=== PATIENT | female | born 1960 | race Caucasian/White ===

== ENCOUNTER 2016-11-14 21:22 | Inpatient (IN) | payer OTHER ==
--- NOTE | ~2016-11-14 | EKG ---
PATIENT: SONIA CHRISTIANSON UNIT #: [id number] Ventricular Rate: 91 BPM Atrial Rate: 91 BPM P-R Interval: 162 ms QRS Duration: 104 ms Q-T Interval: 360 ms QTC Calculation(Bezet): 442 ms P Iny[place]ern: 76 degrees Calculated R Iny[place]ern: -25 degrees Calculated T In[place]ern: 49 degrees Diagnosis Line: Normal sinus rhythm Diagnosis Line: Low voltage QRS Diagnosis Line: Borderline ECG Diagnosis Line: When compared with ECG of 18-OCT-2016 18:02, Diagnosis Line: No significant change was found Diagnosis Line: Confirmed by KVNG RIVERA MD ([id number]) on 11/15/2016 Diagnosis Line: 7:30:54 PM INTERPRETING MD: MIGUEL BECKMAN
--- NOTE | ~2016-11-14 | CO ---
Unit #: [id number] #: [id number] Patient: SONIA CHRISTIANSON [id number] [address] [place], [place] [address] [id number] I MR#: [id number] NAME: SONIA CHRISTIANSON ROOM: 568 Age: 56 Sex: F Admission Date: 11/14/2016 : 1960 Attending Physician: Rodriguez Cordova M.D. Primary Care Physician: Mil Dial M.D. Consultation Date: 11/15/2016 CONSULTATION REPORT REASON FOR CONSULTATION Acute renal failure. HISTORY OF PRESENT ILLNESS This is a 56-year-old white female, who was admitted status post fall. Upon arrival to the ER, she was noted to be hypotensive and have acute renal failure with a creatinine of 6.3. It is of note that she has history of episodes of acute renal failure in the past, however, her creatinine trends to return to baseline, which is approximately 0.6. It is of note that she fell 2 to 3 days prior. At that time, she did not seek medical care. After arrival to the ER, she was found to have an oblique fracture to the distal fibula with a 4 mm separation. She subsequently was admitted to the ICU. She was found to be severely acidotic with pH of 7.1. She was hydrated with IV fluids in the ER and subsequently after arrival to the ICU, she was switched to bicarb drip for metabolic acidosis. She was having good urine output. Her creatinine is now 4.8. Her blood pressure is still low. She is still on Levophed. She is a little more arousable, but still very inappropriate and difficult to get history from. She is currently on the BiPAP. Of note at home, she was on SPEEDY inhibitors. She denies any NSAID use, but the reliability of her history is questionable. It is of note that she does have multiple psychiatric and pain medications and has a long history of polypharmacy. PAST MEDICAL HISTORY 1. Hypertension. 2. Several episodes of acute kidney injury. 3. COPD. 4. Congestive heart failure. 5. Diabetes. 6. Anemia of chronic disease. HOME MEDICATIONS As follows. Lipitor, Ventolin, Symbicort, lisinopril, Neurontin, Wellbutrin, sodium bicarb, Lomotil, Tamiflu, hydralazine. ALLERGIES She is allergic to penicillin, sulfa, and codeine. SOCIAL HISTORY History is obtained from the chart. She does have active smoking. She states that she drinks daily, but does not given any details to that. FAMILY HISTORY Significant for coronary artery disease in the chart, but again she is Unit #: [id number] #: [id number] Patient: SONIA CHRISTIANSON unable to provide this. REVIEW OF SYSTEMS We have attempted 12 systems review of systems, however, she is unable to cooperate. She answers yes to every single question I have. Per the nursing staff, she has had no seizure-like activity. No rashes have been noted. No edema has been noted. No vomiting, diarrhea, melena, or bright red blood per rectum has been noted. PHYSICAL EXAMINATION VITAL SIGNS: Blood pressure 95/55, she is on Levophed; heart rate is 78; respiratory rate 16; she is afebrile. GENERAL: She is alert, she is sleeping, she is arousable, but inappropriate. She is in no acute distress. HEENT: Extraocular movements are intact. There is no scleral icterus. Pupils are equal, round, and reactive to light. NECK: Supple with no masses. No JVD. HEART: S1, S2. No murmurs, rubs, or gallops appreciated. LUNGS: Coarse with diminished bases, but no rales, rhonchi, or wheezes are appreciated. ABDOMEN: Soft, nontender, nondistended. Slightly hypoactive bowel sounds. No rebound. No guarding. EXTREMITIES: Warm to touch with intact pulses. No edema. SKIN: No rashes noted. DIAGNOSTIC STUDIES LABORATORY RESULTS: Reviewed. Sodium 135, potassium 4.3, bicarb 21, BUN 73, creatinine 4.8, calcium 7.9, albumin 3.3. White count 5, hemoglobin 10, platelets 119. ABG shows pH of 7.14, paCO2 of 54, paO2 of 196. IMAGING STUDIES: Chest x-ray shows central line that terminates into SVC and some mild atelectasis in the left lung base with unremarkable cardiac silhouette. Ankle films did show the fibular fracture. ASSESSMENT 1. Acute renal failure. 2. Metabolic acidosis. 3. Hypotension. 4. Polysubstance abuse. 5. Anemia of chronic disease. DISCUSSION AND PLAN At this time, we will continue on her bicarb drip. We will repeat her ABG. We will go ahead and add banana bag and check magnesium and phosphorus due to her polysubstance abuse. For her renal failure, we will check urine studies and renal ultrasound. For hypotension we will continue on pressors. Check TSH and cortisol. We will discontinue her SPEEDY inhibitor. Recommend we avoid NSAIDs or nephrotoxic agents including IV iodinated dye. If her acidosis worsens, we will consider hemodialysis. We will continue to monitor electrolytes and volume closely for her anemia. We will check her iron sats in the a.m. We will also go ahead and check a lactic acid level. Thank you again for this referral. Please feel free to call with any questions or concerns. Dictated by... Unit #: [id number] #: [id number] Patient: SONIA CHRISTIANSON M.D. SHD/modl TD: 11/15/2016 22:45 JOB #: [id number] CONSULTATION REPORT X Imani Arauz MD CONSULTATION REPORT
--- NOTE | ~2016-11-14 | CR72 ---
[facility] A Service of [facility] & [facility] RADIOLOGY TEXT RESULTS PATIENT: SONIA CHRISTIANSON LOCATION: [address] : [birth year] UNIT #: [id number] AGE: [address]: Rodriguez Cordova MD SEX: F ORDER DR: [id number] [facility] [address] [facility]. [place], [place] [address] [id number] I MR#: [id number] Acc #: [id number] NAME: SONIA CHRISTIANSON : 1960 SEX: F STUDY DATE/TIME: 11/15/2016 9:43 UNIT: [facility] ROOM: [facility] STUDY DESCRIPTION: CR Chest Single View Portable Attending Physician: Rodriguez Cordova M.D. Ordering Physician: Zak Flores M.D. Primary Care Physician: Mil Dial M.D. MEDICAL IMAGING REPORT This report is preliminary unless electronic signature is present EXAM Frontal chest 11/15/2016 INDICATIONS 56-year-old female for line placement, short of air, respiratory distress, acute renal failure and lower extremity fracture. Symptoms began immediately prior to arrival. Frontal chest compared with 11/14/2016 FINDINGS Dual lead left-sided pacemaker/defibrillator is unchanged. There is a new central line from right neck approach terminating at the distal SVC level. There is no pneumothorax. Cardiac silhouette unremarkable. Vascularity normal. There is some minimal atelectasis in the left lung base. IMPRESSION 1. New central line from right neck approach terminates at the distal SVC level. No pneumothorax. 2. There is some minimal atelectasis in the left lung base. Dictated by... Hernesto Sanders M.D. THIS IS AN ELECTRONICALLY VERIFIED REPORT Hernesto Sanders M.D. at 11/15/2016 5:33 PM Mirna TD: 11/15/2016 15:48 JOB #: [id number] MEDICAL IMAGING REPORT COPY
--- NOTE | ~2016-11-14 | CO ---
Unit #: [id number] #: [id number] Patient: SONIA CHRISTIANSON [id number] [address] [place], [place] [address] [id number] I MR#: [id number] NAME: SONIA CHRISTIANSON ROOM: 564 Age: 56 Sex: F Admission Date: 11/14/2016 : 1960 Attending Physician: Rodriguez Cordova M.D. Primary Care Physician: Mil Dial M.D. Consultation Date: 11/18/2016 CONSULTATION REPORT REASON FOR CONSULTATION Confusion. HISTORY OF PRESENT ILLNESS Ms. Busch is a 56-year-old female seen on November 18, 2016 in room 568, bed 1 at [facility]. The patient was confused, unable to give any reliable information. Patient's right leg was wrapped, unable to give any information. The patient answered some yes and no questions. The patient seemed very confused, anxious, nervous and unable to give any reliable information. PAST PSYCHIATRIC HISTORY Unknown for any history of any psychiatric illness. MEDICAL HISTORY 1. History of hypertension. 2. Acute kidney injury. 3. History of acute exacerbation of COPD. 4. Diabetes. 5. Anemia. 6. Patient currently has acute renal failure, metabolic acidosis, hypotension. 7. History of polysubstance abuse. 8. Anemia on chronic disease. MEDICATION HISTORY The patient is currently on: 1. Zestril. 2. Hydralazine. 3. Aspirin. 4. Coreg. 5. Ativan p.r.n. 6. Prednisone 30 mg daily. 7. NovoLog. 8. Lipitor. 9. Claritin. 10. Symbicort. 11. Lovenox. 12. Combivent inhaler. 13. Patient was on Seroquel earlier, on previous admission. FAMILY HISTORY Unavailable at this time. Unit #: [id number] #: [id number] Patient: SONIA CHRISTIANSON SOCIAL HISTORY No known history of any abuse, but history of substance abuse according to intake reports. Patient's urine drug screen was positive for opiates. REVIEW OF SYSTEMS A complete review of systems is remarkable for confusion. MENTAL STATUS EXAMINATION General appearance: Patient dressed in hospital attire. Patient seems somewhat confused, unable to give any reliable information. Attention span and concentration poor. Speech slow. Orientation: Unable to assess. Mood and affect were labile. Thought process was tangential. Thought content: Guarded, paranoid. Recent and remote memory poor. Language: Patient articular. Fund of knowledge: Impaired. Insight and judgment: Impaired. DIAGNOSES 1. Delirium, F05. 2. History of opiate use disorder, moderate, F11.20. ASSESSMENT AND PLAN 1. Supportive psychotherapy, psychoeducation provided to patient but patient unable to comprehend much. 2. Recommending at this time to continue with the inpatient treatment with plan to add haloperidol 2 mg three times a day. Advised to hold medication if patient too sleepy. We will closely monitor patient. We will closely monitor patient's mood and behavior. If needed, consider further adjustment in medications. Please feel free to call if any question, . Dictated by... Sal Santos/sandra TD: 11/19/2016 10:00 JOB #: [id number] CONSULTATION REPORT X Aldo Carreno MD X CONSULTATION REPORT
--- NOTE | ~2016-11-14 | CR126 ---
[facility] A Service of [facility] & [facility] RADIOLOGY TEXT RESULTS PATIENT: SONIA CHRISTIANSON LOCATION: [facility]2-03 : [birth year] UNIT #: [id number] AGE: [address]: Rodriguez Cordova MD SEX: F ORDER DR: [id number] [facility] [address] [facility]. [place], [place] [address] [id number] I MR#: [id number] Acc #: [id number] NAME: SONIA CHRISTIANSON : 1960 SEX: F STUDY DATE/TIME: 11/14/2016 21:02 UNIT: [facility] ROOM: [id number] STUDY DESCRIPTION: CR Foot Complete Min 3 View Lt Attending Physician: Rodriguez Cordova M.D. Ordering Physician: Zak Flores M.D. Primary Care Physician: Mil Dial M.D. MEDICAL IMAGING REPORT This report is preliminary unless electronic signature is present EXAM Left foot 3 views 11/14/2016 HISTORY Foot pain and swelling for 2 days after fall. FINDINGS 3 views of the left foot demonstrate oblique fracture through the medial base of the second metatarsal with 2 mm separation of the fracture fragment. Moderate soft tissue swelling over the dorsum of the forefoot. There is an oblique fracture of the distal fibular metaphysis with 4 mm separation of the fracture fragment. Soft tissue swelling about the ankle. No dislocation. No additional fracture. Degenerative changes in the ankle. Dictated by... Rell Ward M.D. THIS IS AN ELECTRONICALLY VERIFIED REPORT Rell Ward M.D. at 11/15/2016 2:20 PM TREY/clive TD: 11/15/2016 11:00 JOB #: [id number] MEDICAL IMAGING REPORT COPY
--- NOTE | ~2016-11-14 | CO ---
Unit #: [id number] #: [id number] Patient: SONIA SWAIN [id number] [address] [address] [id number] I MR#: [id number] NAME: SONIA SWAIN ROOM: 568 Age: 56 Sex: F Admission Date: 11/14/2016 : 1960 Attending Physician: Rodriguez Cordova M.D. Primary Care Physician: Mil Dial M.D. Consultation Date: 11/15/2016 CONSULTATION REPORT REASON FOR CONSULT Left foot and ankle fracture. HISTORY OF PRESENT ILLNESS Ms. Swain is a 56-year-old female who presents today with a left foot and ankle fracture. The patient does not recall an injury or a fall. She does not remember any details. She reports pain for 2 days. She is being admitted for diarrhea, blurred vision, vomiting, coughing and is being admitted to the ICU. She admits to pain over the lateral malleolus and distal fibula. She also admits pain to the second metatarsal. She is able to bear weight but does have pain. She walks without any ambulatory support. PAST MEDICAL HISTORY 1. Diabetes. 2. COPD. 3. Hypertension. 4. Hyperlipidemia. 5. GERD. 6. Gastroparesis. 7. Congestive heart failure. 8. Ventricular tachycardia. 9. Smoking. MEDICATIONS Medications include Hydrochlorothiazide, Catapres, potassium, Neurontin, Wellbutrin, Klonopin, Seroquel, allergy medicine, omeprazole, Celexa, Coreg, Lipitor, Ventolin inhaler, Symbicort and lisinopril. ALLERGIES Penicillin, sulfa and codeine. PAST SURGICAL HISTORY 1. Tubal ligation. 2. Cholecystectomy. 3. Cardiac catheterization. SOCIAL HISTORY The patient smokes a pack of cigarettes a day. She denies any alcohol use and no illicit drug use reported. FAMILY HISTORY Family history is insignificant. Unit #: [id number] #: [id number] Patient: SONIA SWAIN REVIEW OF SYSTEMS Ten organ systems reviewed. The patient denies any blurry vision, congestion, sore throat, shortness of breath, chest pain, abdominal pain, urinary incontinence, numbness, tingling, skin ulcers or lesions, anxiety, depression. Positive for joint pain. PHYSICAL EXAMINATION GENERAL: In no acute distress. Alert and oriented x3. VITALS: Temp 98.3, pulse 97, respirations 16, blood pressure 124/77. HEENT: PERRLA. Nonicteric sclera. THORAX: Trachea is midline. No thyromegaly. CARDIOVASCULAR: S1, S2. No extra sounds. No murmurs. RESPIRATORY: Lungs are clear to auscultation. No rales or rhonchi. ABDOMEN: Nondistended, nontender. Positive bowel sounds. : Deferred. MUSCULOSKELETAL: Tenderness to palpation over the left distal fibula and second metatarsal. Positive edema. NEUROLOGIC: Cranial nerves II-XII intact. SKIN: Cool and dry. PSYCHIATRIC: Good insight. Good judgment. Mood and affect are pleasant. DIAGNOSTIC STUDIES X-RAYS ON ADMISSION: Two views of the left foot and ankle were ordered and reviewed and show a minimally displaced left distal fibula fracture and a second metatarsal fracture proximally. ASSESSMENT Left foot and ankle fracture. PLAN I have discussed treatment options with the patient, as well as reviewing the x-rays with Dr. Calderón and Dr. Tillman. We have recommended nonsurgical intervention at this time. We will treat the patient nonweightbearing in a posterior splint. We will see the patient in the office in a week following her discharge for another x-ray. It should take the fracture about 6-8 weeks to completely heal. Thank you for the consult. Dictated by... Pee Monet for Sal To/fidelina TD: 11/18/2016 08:25 JOB #: [id number] CONSULTATION REPORT X Bonita Ivory CONSULTATION REPORT
--- NOTE | ~2016-11-14 | DS ---
Unit #: [id number] #: [id number] Patient: SONIA CHRISTIANSON [id number] [address] [place], [place] [address] [id number] I MR#: [id number] NAME: SONIA CHRISTIANSON ROOM: 564 Age: 56 Sex: F Admission Date: 11/14/2016 : 1960 Discharge Date: 11/20/2016 Attending Physician: Rodriguez Cordova M.D. Primary Care Physician: Mil Dial M.D. DISCHARGE SUMMARY FINAL DIAGNOSES 1. Left foot and ankle fracture: Patient was admitted after she had a fall at home and found to have left foot and ankle fracture. The patient was seen by Dr. Tillman. Nonsurgical intervention has been recommended at this time. Patient was treated with non-weight bearing in a posterior splint. The patient needs to follow up with Dr. Tillman in one week. After that one week, x-ray needs to be done. It should take fracture about 6-8 weeks to completely heal. 2. Acute renal failure and metabolic acidosis: Patient was seen by Dr. Arauz from renal services, started on bicarb drip, IV fluids. Patient also has a history of polysubstance abuse so banana bag and magnesium replacement and potassium replacement was done. Patient's renal function has much improved. On discharge, BUN is 24 which was 81 on admission, creatinine is 1.0 which was 6.3 on admission. Patient needs to stay away from all the NSAIDs [id number], and BMP needs to be done in a week or so. Patient did have potassium level low today. That will be replaced before discharge and that needs to be checked as an outpatient too. 3. Hypotension: On admission, patient was hypotensive, was admitted to ICU and was on pressors for some time. Most likely, it was secondary to multiple sites and blood pressure medications which have been adjusted. There is a question of drug overdose on admission. The patient's home medications were adjusted. Patient is stable from that point of view at this time but needs to continue to observe closely. 4. Patient has significant cardiac disease: She has non-ischemic cardiomyopathy with left ventricular ejection fraction of 30% to 35%. Patient has had AICD placement in July 2015. Does not have significant valvular heart disease. Cardiac cath was done in July 2015 which showed normal coronaries. 5. Acute respiratory failure: Patient did have acute respiratory failure on admission. Was admitted to ICU, most likely secondary to drug overdose which is resolved at this time. 6. Acute exacerbation of chronic obstructive pulmonary disease: That could be causing some of the hypoxic respiratory failure also. Patient was treated with IV Solu-Medrol and antibiotics. Patient needs only two more days of prednisone which will be 5 mg dose. 7. Diarrhea: Patient did have diarrhea episode. C. diff was done which was negative. 8. Delirium/confusion/history of opioid use disorder: Patient was seen by Dr. Aldo Carreno, psychiatrist. Supportive psychotherapy, psychoeducation was provided to patient but patient was unable to comprehend. She is doing much better at this time. Patient did receive Haldol 2 mg three times a day. Patient will need to continue Unit #: [id number] #: [id number] Patient: SONIA CHRISTIANSON to monitor mood and behavior. Patient will need outpatient ongoing psych consult. 9. Chronic anemia, which is stable. 10. Hyperlipidemia: Continue same medications. DISCHARGE MEDICATIONS 1. Prednisone 5 mg p.o. daily for two days. 2. Hydrocodone 10/325, one tablet q.8 p.r.n. 3. Continue Ventolin inhaler at home. 4. Symbicort 160/4.5 inhaler, two inhaler b.i.d. 5. Tylenol 650 q.4 p.r.n. 6. Celexa 20 mg daily. 7. Cetirizine daily. 8. Seroquel 100 mg q. h.s. 9. Klonopin 0.5 mg b.i.d. 10. Coreg 3.125 mg twice a day. Please note - dose of Coreg has been decreased because of hypertension on admission which may need to be adjusted later on. 11. Lipitor 20 mg daily. 12. Lisinopril 10 mg twice a day. 13. Pepcid 20 mg daily. 14. Aspirin 81 mg daily. CONSULTATIONS DURING HOSPITALIZATION 1. Dr. Arauz - Renal Services. 2. Dr. Thompson/Dr. Sandoval - Pulmonary Services. 3. Dr. Tillman - Orthopedic Surgery. 4. Dr. Aldo Carreno - Psych Services. 5. Dr. Vick - Cardiology Services. LAB WORKUP ON DISCHARGE C. diff is negative. Sodium 138, potassium 3.6, chloride 97, BUN 14, creatinine 0.8, magnesium 1.5, WBC 8.2, hemoglobin 10.5, hematocrit 31.1 and platelet count of 209. Please note - I will discharge her on 50,000 units of vitamin D q. weekly. Blood cultures during hospitalization were negative. TSH 2.46. Troponin less than 0.03. Ferritin 88. Lactic acid 1.0. Procalcitonin level 0.18 on admission. Urine drug screen was positive for TCA and benzo. EXAMINATION ON DISCHARGE Blood pressure 145/71, respiratory rate 18, pulse is 102, temperature 98.0. CHEST has fair air entry. No additional sounds. CVS is regular rhythm. EXTREMITIES - left extremity splint is present. DISCHARGE INSTRUCTIONS 1. The patient is being discharged home in stable condition. 2. [facility] health to evaluate and treat at home. 3. Non-weight bearing until seen by Dr. Tillman. 4. Follow up with Dr. Tillman in one week. 5. Medication as per Med Rec. 6. Potassium 40 mEq q. one dose before discharge. 7. BMP to be done in one week. Unit #: [id number] #: [id number] Patient: SONIA CHRISTIANSON 8. Prescription has been written. Dictated by... Tracy Quiroz M.D. MARY/kalie TD: 11/22/2016 08:33 JOB #: [id number] DISCHARGE SUMMARY X Tracy Quiroz MD X DISCHARGE SUMMARY
--- NOTE | ~2016-11-14 | US77 ---
[facility] A Service of [facility] RADIOLOGY TEXT RESULTS PATIENT: SONIA CHRISTIANSON LOCATION: [address] : [birth year] UNIT #: [id number] AGE: [address]: Rodriguez Cordova MD SEX: F ORDER DR: [id number] [place] [id number] [facility]. [place], [place] [address] [id number] I MR#: [id number] #: [id number] NAME: SONIA CHRISTIANSON : 1960 SEX: F STUDY DATE/TIME: 11/16/2016 7:28 UNIT: [facility] ROOM: [facility] STUDY DESCRIPTION: US Kidney Bilateral Complete Attending Physician: Rodriguez Cordova M.D. Ordering Physician: Bhumi Sandoval M.D. Primary Care Physician: Mil Dial M.D. MEDICAL IMAGING REPORT This report is preliminary unless electronic signature is present EXAM Renal ultrasound bilateral complete, 11/16/2016 INDICATION 56-year-old female with acute renal injury. BUN 38, creatinine 1.4, GFR 42. TECHNIQUE Sonographic imaging of the kidneys was performed bilaterally. COMPARISON No comparisons. FINDINGS The right kidney measures 9.8 x 5.0 x 4.3 cm and the left measures 11.2 x 4.6 x 4.4 cm. There is no hydronephrosis or shadowing stone on either side. No perinephric fluid collection identified. Bladder decompressed by a Jasso catheter. IMPRESSION Negative bilateral renal ultrasound. Bladder decompressed by a Jasso catheter and not visualized or assessed. Dictated by... Hernesto Sanders M.D. THIS IS AN ELECTRONICALLY VERIFIED REPORT Hernesto Sanders M.D. at 11/16/2016 4:38 PM Aníbal TD: 11/16/2016 12:19 JOB #: [id number] [facility] A Service of [facility] RADIOLOGY TEXT RESULTS PATIENT: SONIA CHRISTIANSON [address] [address] [id number] : [birth year] UNIT #: [id number] AGE: [address]: Rodriguez Cordova MD SEX: F ORDER DR: MEDICAL IMAGING REPORT COPY
--- NOTE | ~2016-11-14 | CR20 ---
[facility] A Service of [facility] & [facility] RADIOLOGY TEXT RESULTS PATIENT: SONIA CHRISTIANSON LOCATION: [address] : [birth year] UNIT #: [id number] AGE: [address]: Rodriguez Cordova MD SEX: F ORDER DR: [id number] [facility] [address] [facility]. [place], [place] [address] [id number] I MR#: [id number] #: [id number] NAME: SONIA CHRISTIANSON : 1960 SEX: F STUDY DATE/TIME: 11/14/2016 21:21 UNIT: [facility] ROOM: [facility] STUDY DESCRIPTION: CR Ankle Min 3 Views Lt Attending Physician: Rodriguez Cordova M.D. Ordering Physician: Zak Flores M.D. Primary Care Physician: Mil Dial M.D. MEDICAL IMAGING REPORT This report is preliminary unless electronic signature is present EXAM Left ankle 3 views 11/14/2016 HISTORY Ankle pain and bruising after fall 2 days ago. FINDINGS 3 views of the left ankle demonstrate oblique fracture through the distal fibular metaphysis with 4 mm separation of the distal fracture fragment. Moderate soft tissue swelling about the ankle both medially and laterally. There is a fracture through the base of the second metatarsal with approximately 2 mm separation of the fracture fragment. No dislocation. Mild degenerative changes in the ankle. Dictated by... Rell Ward M.D. THIS IS AN ELECTRONICALLY VERIFIED REPORT Rell Ward M.D. at 11/15/2016 2:20 PM TREY/clive TD: 11/15/2016 11:06 JOB #: [id number] MEDICAL IMAGING REPORT COPY
--- NOTE | ~2016-11-14 | CR72 ---
[facility] A Service of [facility] & [facility] RADIOLOGY TEXT RESULTS PATIENT: SONIA CHRISTIANSON LOCATION: [address] : [birth year] UNIT #: [id number] AGE: [address]: Rodriguez Cordova MD SEX: F ORDER DR: [id number] [facility] [address] [facility]. [place], [place] [address] [id number] I MR#: [id number] Acc #: [id number] NAME: SONIA CHRISTIANSON : 1960 SEX: F STUDY DATE/TIME: 11/14/2016 20:59 UNIT: [facility] ROOM: [facility] STUDY DESCRIPTION: CR Chest Single View Portable Attending Physician: Rodriguez Cordova M.D. Ordering Physician: Zak Flores M.D. Primary Care Physician: Mil Dial M.D. MEDICAL IMAGING REPORT This report is preliminary unless electronic signature is present EXAM Portable chest x-ray, 11/14/2016. HISTORY Weakness, falls. 2 days duration. Fell. Weakness, dizziness. FINDINGS AP radiograph of the chest is presented. Comparison 10/18/2016 1904 hours. Cardiac pacemaker unchanged. Heart normal in size. The lungs are well-inflated. Linear atelectasis at the left lung base. The lungs are otherwise clear. No pleural effusion or pneumothorax. No suspicious nodule. Dictated by... Naseem Adams M.D. THIS IS AN ELECTRONICALLY VERIFIED REPORT Naseem Adams M.D. at 11/16/2016 5:27 PM PABLITO/sarabjit TD: 11/15/2016 11:34 JOB #: [id number] MEDICAL IMAGING REPORT COPY
--- NOTE | ~2016-11-14 | EKG ---
PATIENT: SONIA CHRISTIANSON UNIT #: [id number] Ventricular Rate: 73 BPM Atrial Rate: 73 BPM P-R Interval: 178 ms QRS Duration: 92 ms Q-T Interval: 398 ms QTC Calculation(Bezet): 438 ms P [place]: 71 degrees Calculated R [place]: 7 degrees Calculated T [place]: 40 degrees Diagnosis Line: Sinus rhythm with marked sinus arrhythmia Diagnosis Line: Low voltage QRS Diagnosis Line: Borderline ECG Diagnosis Line: When compared with ECG of 14-NOV-2016 21:14, Diagnosis Line: No significant change was found Diagnosis Line: Confirmed by KVNG RIVEAR MD ([id number]) on 11/17/2016 Diagnosis Line: 7:15:57 AM INTERPRETING MD: MIGUEL BECKMAN
[~2016-11-14 21:22] MED LIST: ABILIFY2 MG PO; ACID REDUCER20 MG PO; ALBUTEROL MININEB NEB; ALBUTEROL17 GM; ALBUTEROL17 GM INH; ALLERGY RELIEF10 M6 PO; ALPRAZOLAM; APAP325 M1 PO; AZITHROMYCIN250 MG PO; CALCIUM 500 +1 EAC2 PO; CARVEDILOL25 MG PO; CATAPRES0.1 MG PO; CELEXA; CELEXA PO; CELEXA20 M1 PO; CETIRIZINE HCL10 MG PO; CIPRO PO; CITALOPRAM HBR40 MG PO; CLARITIN D PO; COMBIVENT INH14.7 GM; COMBIVENT INH14.7 GM INH; COMBIVENT U/D3 M2 INH; DELTASONE20 MG PO; ESTRACE PO; FLEXERIL PO; GLUCOPHAGE XR500 MG; GLUCOPHAGE500 MG PO; HUMIBID-LA600 MG PO; HYDRALAZINE HCL25 MG PO; HYDROCHLOROTHIA25 MG PO; HYDROCODON-ACE1 EAC7 PO; IBUPROFEN600 MG PO; IBUPROFEN800 MG PO; INHALER; K-DUR20 ME1 PO; KCL; KLONOPIN; KLONOPIN PO; KLONOPIN0.5 M3 PO; KLOR-CON PO; LANTUS SUBQ; LANTUS100 UNITS/ SUBQ; LEVAQUIN; LEVAQUIN PO; LEVEMIR100 UNITS/ INJ; LIPITOR; LIPITOR PO; LIPITOR20 MG PO; LIPITOR40 MG PO; LISINOPRIL; LISINOPRIL-HCTZ1 T14 PO; LISINOPRIL-HCTZ1 T18 PO; LISINOPRIL2.5 MG PO; LISINOPRIL20 MG PO; LOMOTIL WHITE2.5 M1 PO; LOPRESSOR PO; LORATADINE; LORTAB 10/500 T1 TAB PO; LORTAB 7.5-5001 TAB; LORTAB 7.5-5001 TAB PO; MAGNESIUM400 MG PO; MEDROL DOSEPAK4 MG DOB; METHADONE PO; METOPROLOL TART25 MG PO; MIDRIN CAPSULE1 CAP PO; MUCINEX D ER T1 EACH PO; NEURONTIN800 MG PO; NICODERM C1 PATCH .4 TD; NICOTINE T1 PATCH .2; NICOTINE TRANSD21 MG EXT; OMEPRAZOLE20 M1 PO; OMEPRAZOLE20 M2 PO; PERCOCET5/325 PO; PHENERGAN DM1 ML PO; PHENERGAN PO; PREDNISONE; PREDNISONE PO; PREDNISONE10 MG/DOSE PO; PREMPRO PO; PRILOSEC PO; PRINIVIL40 MG PO; PROVENTIL17 GM INH; SENOKOT S1 TA1 PO; SEROQUEL PO; SEROQUEL50 M1 PO; SKELAXIN PO; SOD BICARBONATE PO; SODIUM BICARBO650 MG PO; SPIRIVA18 MCG INH; SYMBICORT 16010.2 GM INH; SYMBICORT INH; SYMBICORT80 INH; TAMIFLU75 M1 PO; TESSALON200 MG PO; TOPIRAMATE100 MG PO; TOPROL XL PO; VIBRAMYCIN100 M1 PO; VICODIN 5/1 TAB 5/50 PO; VICODIN 5/500 T1 TAB; WELLBUTRIN100 MG PO; ZESTORETIC 20/11 TAB; ZESTORETIC 20/11 TAB PO; ZITHROMAX; ZITHROMAX PO; ZITHROMAX1 G/PKT PO; ZOCOR; ZOCOR PO; ZOFRAN PO; ZYRTEC10 M2 PO; [UNRECOGNIZED DRUG - REMARK]
[2016-11-14 21:26] LABS: BASOPHIL% 0.3 % (0-2.5); EOSINOPHIL# 0.2 X10e3 (0-0.7); EOSINOPHIL% 3.9 % (0.0-7.0); HEMATOCRIT 30.7 % (35.0-45.0); HEMOGLOBIN 10.3 gm/dL (12.0-16.0); LYMPHOCYTE# 0.9 X10e3 (1.0-3.5); MEAN CELL VOLUME 88.4 FL (83-96); MEAN CORPUSCULAR HEMOGLOBIN 29.8 PG (28-34); MEAN CORPUSCULAR HGB CONC 33.7 g/dL (30-36); MEAN PLATELET VOLUME 8.1 FL (6.5-11.5); MONOCYTE# 0.5 X10e3 (0-1.0); MONOCYTE% 9.4 % (3.0-12.0); NEUTROPHIL# 3.5 X10e3 (1.5-7.1); NEUTROPHIL% 68.4 % (40-75); PLATELET COUNT 119 X10e3 (140-420); RED BLOOD COUNT 3.47 X10e (3.90-5.30); RED CELL DISTRIBUTION WIDTH 15.3 % (11.0-15.5); WHITE BLOOD COUNT 5.2 X10e3 (4.0-10.5)
[2016-11-14 21:30] LABS: DIFF IND NO
[2016-11-14 21:48] LABS: URINE SOURCE CLEAN CATCH
[2016-11-14 21:51] LABS: ALBUMIN SERUM 3.3 g/dL (3.5-5.0); BILIRUBIN, DIRECT 0.1 mg/dL (0.0-0.2); BILIRUBIN,INDIRECT 0.4 mg/dL (0.0-0.9); BILIRUBIN,TOTAL 0.5 mg/dL (0.2-2.0); BUN/CREATININE RATIO 12.85; CREATININE SERUM 6.3 mg/dL (0.6-1.4); GLOM FILT RATE Estimated 7.3 mL/min (>60); POTASSIUM 4.2 mmol/L (3.5-5.1); PROTEIN TOTAL SERUM 6.1 g/dL (6.0-8.3)
[2016-11-14 22:03] LABS: URINE APPEARANCE CLEAR; URINE BILIRUBIN NEG (NEG); URINE BLOOD NEG (NEG); URINE COLOR YELLOW; URINE GLUCOSE NEG (NEG); URINE KETONE NEG (NEG); URINE LEUKOCYTE ESTERASE NEG (NEG); URINE NITRATE NEG (NEG); URINE PROTEIN NEG (NEG); URINE SPECIFIC GRAVITY 1.012 (1.003-1.035); URINE UROBILINOGEN 0.2 MG/DL (NEG)
[2016-11-14 22:14] LABS: CULTURE INDICATED? NO
[2016-11-15 04:10] LABS: BUN/CREATININE RATIO 15.2; CALCIUM SERUM 7.9 mg/dL (8.4-10.2); CREATININE SERUM 4.8 mg/dL (0.6-1.4); POTASSIUM 4.3 mmol/L (3.5-5.1)
[2016-11-15 05:51] LABS: ARTERIAL BLD GAS O2 SATURATION 92.5 % (90.0-100.0); ARTERIAL BLOOD GAS CARBOXY HB 1.1 %sat (0.0-9.0); ARTERIAL BLOOD GAS HCO3 18.8 mmol/L; ARTERIAL BLOOD GAS MET HB 0.8 %sat (0.0-2.0)
[2016-11-15 05:53] LABS: ARTERIAL BLOOD GAS ART SITE LEFT BRACHIAL; ARTERIAL BLOOD GAS DELIVERY NASAL CANNULA; ARTERIAL BLOOD GAS PCO2 51.9 mmHg (35.0-45.0); ARTERIAL BLOOD GAS PO2 78.8 mmHg (80.0-100); ARTERIAL BLOOD GAS pH 7.167 (7.350-7.450); ARTERIAL DRAW? YES
[2016-11-15 09:43] LABS: AMPHETAMINE NEG (NEG); BARBITURATES NEG (NEG); BENZODIAZEPINES NEG (NEG); COCAINE NEG (NEG); MARIJUANA NEG (NEG); OPIATES NEG (NEG); TRICYCLIC ANTIDEPRESSANTS POS (NEG); U METHADONE NEG (NEG)
[2016-11-15 09:52] LABS: AMPHETAMINE NEG (NEG); BARBITURATES NEG (NEG); BENZODIAZEPINES NEG (NEG); COCAINE NEG (NEG); MARIJUANA NEG (NEG); OPIATES POS (NEG); TRICYCLIC ANTIDEPRESSANTS NEG (NEG); U METHADONE NEG (NEG)
[2016-11-15 09:59] LABS: ARTERIAL BLD GAS O2 SATURATION 98.4 % (90.0-100.0); ARTERIAL BLOOD GAS CARBOXY HB 0.5 %sat (0.0-9.0); ARTERIAL BLOOD GAS HCO3 18.6 mmol/L; ARTERIAL BLOOD GAS MET HB 0.7 %sat (0.0-2.0)
[2016-11-15 10:02] LABS: ARTERIAL BLOOD GAS PCO2 54.2 mmHg (35.0-45.0); ARTERIAL BLOOD GAS pH 7.145 (7.350-7.450)
[2016-11-15 10:03] LABS: ARTERIAL BLOOD GAS ALLEN TEST POS; ARTERIAL BLOOD GAS ART SITE LEFT RADIAL; ARTERIAL DRAW? YES
[2016-11-15 16:19] LABS: ARTERIAL BLD GAS O2 SATURATION 97.7 % (90.0-100.0); ARTERIAL BLOOD GAS CARBOXY HB 0.5 %sat (0.0-9.0); ARTERIAL BLOOD GAS HCO3 22.7 mmol/L; ARTERIAL BLOOD GAS MET HB 0.7 %sat (0.0-2.0); ARTERIAL BLOOD GAS pH 7.231 (7.350-7.450)
[2016-11-15 16:20] LABS: ARTERIAL BLOOD GAS ALLEN TEST NORMAL; ARTERIAL BLOOD GAS ART SITE LEFT RADIAL; ARTERIAL BLOOD GAS DELIVERY BIPAP 20/5; ARTERIAL DRAW? YES
[2016-11-15 18:05] LABS: BUN/CREATININE RATIO 23.04; CALCIUM SERUM 7.7 mg/dL (8.4-10.2); GLOM FILT RATE Estimated 23.4 mL/min (>60); MAGNESIUM 1.6 mg/dL (1.6-3.0); PHOSPHOROUS 4.2 mg/dL (2.5-4.6); POTASSIUM 4.2 mmol/L (3.5-5.1)
[2016-11-15 18:09] LABS: CREATININE SERUM 2.3 mg/dL (0.6-1.4)
[2016-11-16 05:51] LABS: HEMATOCRIT 25.9 % (35.0-45.0); HEMOGLOBIN 8.9 gm/dL (12.0-16.0); MEAN CELL VOLUME 88.2 FL (83-96); MEAN CORPUSCULAR HEMOGLOBIN 30.4 PG (28-34); MEAN CORPUSCULAR HGB CONC 34.5 g/dL (30-36); MEAN PLATELET VOLUME 8.4 FL (6.5-11.5); RED BLOOD COUNT 2.93 X10e (3.90-5.30); RED CELL DISTRIBUTION WIDTH 15.1 % (11.0-15.5)
[2016-11-16 06:43] LABS: ALBUMIN SERUM 2.7 g/dL (3.5-5.0); BILIRUBIN,TOTAL 0.3 mg/dL (0.2-2.0); BUN/CREATININE RATIO 27.14; CALCIUM SERUM 7.8 mg/dL (8.4-10.2); CREATININE SERUM 1.4 mg/dL (0.6-1.4); GLOM FILT RATE Estimated 41.5 mL/min (>60); MAGNESIUM 1.6 mg/dL (1.6-3.0); PHOSPHOROUS 3.3 mg/dL (2.5-4.6); PROTEIN TOTAL SERUM 4.8 g/dL (6.0-8.3)
[2016-11-17 07:11] LABS: BLOOD UREA NITROGEN 18 mg/dL (9-23); CALCIUM SERUM 8.4 mg/dL (8.4-10.2); CARBON DIOXIDE 33 mmol/L (22-31); CHLORIDE 101 mmol/L (100-111); CREATININE SERUM 0.8 mg/dL (0.6-1.4); GLOM FILT RATE Estimated ABOVE60 mL/min (>60); GLUCOSE FASTING 118 mg/dL (70-110); MAGNESIUM 1.2 mg/dL (1.6-3.0); PHOSPHOROUS 2.4 mg/dL (2.5-4.6); POTASSIUM 4.3 mmol/L (3.5-5.1); SODIUM 144 mmol/L (135-145)
[2016-11-18 06:08] LABS: BLOOD UREA NITROGEN 13 mg/dL (9-23); BUN/CREATININE RATIO 16.25; CALCIUM SERUM 8.6 mg/dL (8.4-10.2); CARBON DIOXIDE 35 mmol/L (22-31); CHLORIDE 95 mmol/L (100-111); CREATININE SERUM 0.8 mg/dL (0.6-1.4); GLOM FILT RATE Estimated ABOVE60 mL/min (>60); GLUCOSE FASTING 101 mg/dL (70-110); MAGNESIUM 1.9 mg/dL (1.6-3.0); PHOSPHOROUS 2.8 mg/dL (2.5-4.6); POTASSIUM 3.1 mmol/L (3.5-5.1); SODIUM 139 mmol/L (135-145)
[2016-11-19 07:05] LABS: HEMATOCRIT 31.1 % (35.0-45.0); HEMOGLOBIN 10.5 gm/dL (12.0-16.0); MEAN CELL VOLUME 86.7 FL (83-96); MEAN CORPUSCULAR HEMOGLOBIN 29.3 PG (28-34); MEAN CORPUSCULAR HGB CONC 33.8 g/dL (30-36); MEAN PLATELET VOLUME 7.3 FL (6.5-11.5); RED BLOOD COUNT 3.59 X10e (3.90-5.30); RED CELL DISTRIBUTION WIDTH 14.6 % (11.0-15.5); WHITE BLOOD COUNT 8.2 X10e3 (4.0-10.5)
[2016-11-19 07:32] LABS: BLOOD UREA NITROGEN 14 mg/dL (9-23); CALCIUM SERUM 8.8 mg/dL (8.4-10.2); CARBON DIOXIDE 30 mmol/L (22-31); CHLORIDE 97 mmol/L (100-111); CREATININE SERUM 0.8 mg/dL (0.6-1.4); GLOM FILT RATE Estimated ABOVE60 mL/min (>60); GLUCOSE FASTING 96 mg/dL (70-110); MAGNESIUM 1.5 mg/dL (1.6-3.0); POTASSIUM 3.6 mmol/L (3.5-5.1); SODIUM 138 mmol/L (135-145)
[2016-11-20 06:49] LABS: BLOOD UREA NITROGEN 24 mg/dL (9-23); CALCIUM SERUM 8.7 mg/dL (8.4-10.2); CARBON DIOXIDE 29 mmol/L (22-31); CHLORIDE 93 mmol/L (100-111); GLOM FILT RATE Estimated ABOVE60 mL/min (>60); GLUCOSE FASTING 112 mg/dL (70-110); POTASSIUM 3.3 mmol/L (3.5-5.1); SODIUM 133 mmol/L (135-145)
[2016-11-20] MEDS ORDERED: NORCO 10-325 TA1 TAB PO (17:40)
[2016-11-20] MEDS ORDERED: PREDNISONE5 MG PO (17:41)
[2016-11-20] MEDS ORDERED: CARVEDILOL25 MG PO (17:46)
[2016-11-20] MEDS ORDERED: ASPIRIN81 MG PO (17:59)
== END 2016-11-20 19:12 | disposition home health service (06) | DRG 682 ==
LOC: CED 21:22 → CEDOF 23:00 → CICCU2 11-15 11:00 → C5C 11-16 19:41
PROVIDERS: Emergency Medicine; Family Medicine; Hospitalist; Internal Medicine Cardiovascular Disease; Internal Medicine Nephrology; Internal Medicine Pulmonary Disease; Nurse Practitioner
DX: N17.0 Acute kidney failure with tubular necrosis (principal); J96.01 Acute respiratory failure with hypoxia; R57.9 Shock, unspecified; I47.2 Ventricular tachycardia; F11.20 Opioid dependence, uncomplicated; E87.2 Acidosis; I50.22 Chronic systolic (congestive) heart failure; I11.0 Hypertensive heart disease with heart failure; F05 Delirium due to known physiological condition; I42.9 Cardiomyopathy, unspecified; J44.1 Chronic obstructive pulmonary disease with (acute) exacerbation; S82.832A Other fracture of upper and lower end of left fibula, initial encounter for closed fracture; S92.322A Displaced fracture of second metatarsal bone, left foot, initial encounter for closed fracture; E11.8 Type 2 diabetes mellitus with unspecified complications; E78.5 Hyperlipidemia, unspecified; K21.9 Gastro-esophageal reflux disease without esophagitis; K31.84 Gastroparesis; Z88.0 Allergy status to penicillin; Z88.2 Allergy status to sulfonamides; Z98.51 Tubal ligation status; Z90.49 Acquired absence of other specified parts of digestive tract; F17.210 Nicotine dependence, cigarettes, uncomplicated; Z79.4 Long term (current) use of insulin; Z79.82 Long term (current) use of aspirin; D64.89 Other specified anemias; I95.2 Hypotension due to drugs; E83.42 Hypomagnesemia; R19.7 Diarrhea, unspecified
CPT/HCPCS: 36415; 36600; 71010; 73610; 73630; 76770; 80048; 80053; 80076; 80307; 81003; 82308; 82330; 82550; 82652; 82728; 82803; 82947; 83540; 83550; 83605; 83735; 84100; 84300; 84443; 84484; 85025; 85027; 85652; 87040; 87493; 89190; 93005; 94640; 94660; 94760; 96361; 96374; 97116; 97162; 97167; 97530; 97535; 99285; J0360; J0692; J1650; J1815; J2405; J3370; J3411; J3475; J7060

== ENCOUNTER 2016-12-18 21:24 | Inpatient (IN) | payer OTHER ==
--- NOTE | ~2016-12-18 | CO ---
Unit #: [id number] #: [id number] Patient: JO-ANN SWAIN [id number] [facility] [address] [facility]. [place], [place] [address] [id number] I MR#: [id number] NAME: JO-ANN SWAIN ROOM: 570 Age: 56 Sex: F Admission Date: 12/19/2016 : 1960 Attending Physician: Tracy Quiroz M.D. Primary Care Physician: Mil Dial M.D. Consultation Date: 12/22/2016 CONSULTATION REPORT REASON FOR CONSULTATION Followup. DISCUSSION Ms. Jo-Ann Swain is a 56-year-old white female seen in room 570 on 12/22/16 at [facility]. The patient has a sitter, confused, guarded, paranoid. The patient is currently on Haldol. No side effects from medication. Later in the day, the patient developed A fib, subsequently decided to take the patient off haloperidol. The patient's mood was labile, disorganized thought process, disorganized behavior, confused, guarded, paranoid. The patient's vital signs - 98.0; 98; 18; 135/95, oxygen saturation 98%. REVIEW OF SYSTEMS A complete review of systems is unremarkable. MENTAL STATUS EXAMINATION General appearance - Patient dressed casually. Attention span, concentration - Poor. Speech - Disorganized. Oriented to self. Mood and affect - Labile. Thought process - Circumstantial. Thought content - Guarded. Paranoid. Denied any thoughts of harming self or others. Recent and remote memory - Poor. Language - Fair. Fund of knowledge - Impaired. Insight and judgment - Impaired. DIAGNOSIS PSYCHIATRIC - Delirium, F05; psychosis, NOS, F29.0. ASSESSMENT AND PLAN 1. Supportive psychotherapy and psychoeducation provided to the patient, but patient unable to comprehend much. 2. Continue with 1:1 monitoring and continue with the inpatient treatment at this time. 3. Advised to discontinue Haldol because of possible cardiac side effect. Will consider other medications, such as Ativan, to control agitation or consider medication, such as Latuda. Please feel free to call with any questions, telephone number . Dictated by... Aldo Carreno M.D. Unit #: [id number] #: [id number] Patient: JO-ANN SWAIN NICK/fidelina TD: 12/23/2016 11:48 JOB #: [id number] CONSULTATION REPORT Page 1 of 1 X Aldo Carreno MD CONSULTATION REPORT
--- NOTE | ~2016-12-18 | CO ---
Unit #: [id number] #: [id number] Patient: SONIA SWAIN [id number] [address] [address] [id number] I MR#: [id number] NAME: SONIA SWAIN ROOM: 570 Age: 56 Sex: F Admission Date: 12/19/2016 : 1960 Attending Physician: Tracy Quiroz M.D. Primary Care Physician: Mil Dial M.D. Consultation Date: 12/19/2016 CONSULTATION REPORT REASON FOR CONSULT Altered mental status. HISTORY OF PRESENT ILLNESS This is a very well known 56-year-old female with a past medical history significant for coronary artery disease, COPD, hypertension, and diabetes, who was just discharged from the hospital a month ago after having a left foot and ankle fracture. Patient appears very confused today and unable to provide any history. She is restless and trying to get up and move. This pattern is very common for Ms. Swain every time she gets septic and infected. On her chest x-ray, there is a new infiltrate concerning for pneumonia. Otherwise, I am unable to obtain any other history. PAST MEDICAL HISTORY 1. Nonischemic cardiomyopathy with ejection fraction of 30% to 35%. 2. Implantable cardioverter-defibrillator. 3. Cardiac arrest in 2014. 4. Hypertension. 5. Hyperlipidemia. 6. Diabetes. 7. Chronic obstructive pulmonary disease. 8. Nicotine abuse. PAST SURGICAL HISTORY 1. Implantable cardioverter-defibrillator. 2. Cholecystectomy. 3. Tubal ligation. 4. Right knee surgery. 5. Hysterectomy. SOCIAL HISTORY Patient is a current smoker. She has a history of drug overdose in the past. FAMILY HISTORY Noncontributory. ALLERGIES PENICILLIN, SULFA, AMARYL, AND CODEINE. HOME MEDICATIONS 1. Klonopin. 2. Seroquel. Unit #: [id number] #: [id number] Patient: SONIA SWAIN 3. . 4. Celexa. 5. Lipitor. 6. Ventolin. 7. Symbicort. 8. Lisinopril. 9. Tylenol. 10. Pepcid. 11. [place]. 12. Prednisone. 13. Coreg. 14. Aspirin. 15. Clonidine. 16. Levemir. 17. Nicotine. 18. Hydrochlorothiazide. REVIEW OF SYSTEMS Unable to obtain as she is very confused. PHYSICAL EXAMINATION GENERAL: Patient is very confused, trying to get out of bed and walk. VITAL SIGNS: Blood pressure is 149/72, respiratory rate 24, and O2 saturation 88% on room air as patient is trying to get her oxygen off. HEENT: Atraumatic, normocephalic. PERRLA. EOMI. NECK: Supple. No JVD. No lymphadenopathy. CHEST: Bilateral fine rhonchi at the bases. No wheezing. HEART: S1 and S2. No murmur, gallops, or rubs. ABDOMEN: Soft, nontender. Bowel sounds are positive. No hepatosplenomegaly. EXTREMITIES: No edema or cyanosis. SKIN: No rashes. CENTRAL NERVOUS SYSTEM: Awake but very confused. She is moving all her extremities with no focal weakness. DIAGNOSTIC STUDIES LABORATORY: Creatinine 1.6 and potassium 5.6. PO2 of 57. White blood count 7.3. IMAGING: Chest x-ray is concerning for pneumonia. ASSESSMENT 1. Acute on chronic hypoxic respiratory failure. 2. Pneumonia likely gram-negative/methicillin-resistant Staphylococcus aureus. 3. TME . 4. Acute kidney injury. 5. Hyperkalemia. 6. Chronic obstructive pulmonary disease. 7. Diabetes. 8. Hypertension. 9. Nonischemic cardiomyopathy. PLAN 1. Gentle hydration with close monitoring of her urine output and creatinine. 2. Lactic acid is normal. However, patient is likely confused from an infection. Unit #: [id number] #: [id number] Patient: SONIA SWAIN 3. Broad spectrum antibiotics to cover for pneumonia. 4. Bronchodilator and mucolytics. 5. Blood pressure and blood sugar control. 6. DVT prophylaxis. 7. Patient needs to have a sitter at bedside and needs fall precautions. I would like to thank Dr. Quiroz for allowing me to be part of this patient's care. Dictated by... Tawnya Sandoval M.D. EA/claudia TD: 12/19/2016 19:25 JOB #: [id number] CONSULTATION REPORT Page 1 of 1 X TAWNYA FISHER MD CONSULTATION REPORT
--- NOTE | ~2016-12-18 | CO ---
Unit #: [id number] #: [id number] Patient: JO-ANN SWAIN [id number] [facility] [address] [facility]. [place], [place] [address] [id number] I MR#: [id number] NAME: JO-ANN SWAIN ROOM: 570 Age: 56 Sex: F Admission Date: 12/19/2016 : 1960 Attending Physician: Tracy Quiroz M.D. Primary Care Physician: Mil Dial M.D. Consultation Date: 12/23/2016 CONSULTATION REPORT REASON FOR CONSULTATION Followup. DISCUSSION Ms. Jo-Ann Swain is a 56-year-old female, seen on 12/23/2016 in room 570, bed 1 at [facility] on 12/23/2016. The patient was coherent, cooperative, and compliant with medication. The patient is tolerating medication fairly well. Sad, dysphoric, anxious, and the patient was able to answer questions appropriately, wanted to know about going home. The patient reports that she was on Celexa 20 mg and Seroquel 100 mg at bedtime. The patient was treated initially with the haloperidol. Responded well and showing improvement in her psychotic symptom, more coherent thought process, currently denied any thoughts of harming self or others. REVIEW OF SYSTEMS Complete review of systems is unremarkable. MENTAL STATUS EXAMINATION General appearance, the patient dressed casually, lying comfortably in bed. Attention span and concentration, fair. The patient has a sitter at her bedside. Speech, regular rate. Oriented in time, place, and person. Mood and affect were labile. Thought process, circumstantial. Thought content, the patient denied any thoughts of harming self or others or any auditory or visual hallucination, but somewhat guarded. Recent and remote memory, fair. Language, able to name object and repeat phrases. Fund of knowledge, fair. Insight and judgment, fair to slightly impaired. DIAGNOSES Psychiatric: Bipolar mood disorder, not otherwise specified, F31.89; psychosis/delirium, resolved. ASSESSMENT AND PLAN 1. Supportive psychotherapy and psychoeducation provided to the patient. 2. I advised at this time to continue with current treatment and one-to-one monitoring, but the patient can be released once the patient is medically stable. The patient may go home and follow up with the outpatient program and recommending to resume the patient's Celexa 20 mg daily and Seroquel 100 mg at bedtime. We will continue to follow. Please feel free to call if any questions, telephone #[phone]. Dictated by..Taj Carreno M.D. Unit #: [id number] #: [id number] Patient: JO-ANN SWAIN NICK/karlee TD: 12/25/2016 04:47 JOB #: [id number] CONSULTATION REPORT Page 1 of 1 X Aldo Carreno MD X CONSULTATION REPORT
--- NOTE | ~2016-12-18 | HP ---
Unit #: [id number] #: [id number] Patient: SONIA CHRISTIANSON [id number] [address] [place], [place] [address] [id number] I MR#: [id number] NAME: SONIA CHRISTIANSON ROOM: 70207 Age: 56 Sex: F Admission Date: 12/19/2016 : 1960 Attending Physician: Tracy Quiroz M.D. Primary Care Physician: Mil Dial M.D. HISTORY AND PHYSICAL CHIEF COMPLAINT Altered mental status. HISTORY OF PRESENT ILLNESS The patient is a 56-year-old female who was recently discharged from [facility] on 11/20/2016, after having left foot and ankle fracture and had about a week stay. The patient was found to have acute renal failure, hypotension, acute respiratory failure, chronic obstructive pulmonary disease exacerbation and diarrhea. The patient is not henry to provide any history at this time. She is very confused and has altered mental status. I tried to call the patient's daughter, Juanis at [phone], and she is not available at this time. I left a message for her to call us back so that I can get a detailed history, although I know this patient from the past. PAST MEDICAL HISTORY 1. Significant cardiac disease with nonischemic cardiomyopathy with ejection fraction of 30%-35%. 2. Atrial implantable cardioverter defibrillator placement. 3. Cardiac arrest in 2014. 4. Hypertension. 5. Hyperlipidemia. 6. Diabetes mellitus type 2. 7. Chronic obstructive pulmonary disease. 8. Nicotine abuse. PAST SURGICAL HISTORY 1. History of atrial implantable cardioverter defibrillator in 07/2015. 2. Cholecystectomy. 3. Tubal ligation. 4. Right knee surgery. 5. Hysterectomy. SOCIAL HISTORY The patient is a smoker and continues to smoke. She also has a history of drug overdose in the past. FAMILY HISTORY Noncontributory. ALLERGIES Penicillin, sulfa, Amaryl and codeine. HOME MEDICATIONS Unit #: [id number] #: [id number] Patient: SONIA CHRISTIANSON 1. Klonopin 0.5 mg b.i.d. 2. Seroquel 100 mg at bedtime. 3. Allergy relief daily. 4. Celexa 20 mg daily. 5. Lipitor 20 mg daily. 6. Ventolin inhaler q.4 h. p.r.n. 7. Symbicort 160/4.5 two inhalations b.i.d. 8. Lisinopril 10 mg daily. 9. Tylenol 650 mg q.4 h. p.r.n. 10. Hydralazine 25 mg q.6 h. 11. Pepcid 20 mg daily. 12. [place] 10/325 mg 1 tablet q.8 h. p.r.n. 13. Prednisone 5 mg daily. 14. Coreg 25 mg daily. 15. Aspirin 81 mg daily. 16. Clonidine 0.2 mg b.i.d. 17. Levemir 7 units at bedtime. 18. Nicotine patch 21 topically. 19. Hydrochlorothiazide 25 mg daily. REVIEW OF SYSTEMS Not obtainable at this time. PHYSICAL EXAMINATION GENERAL: The patient is being evaluated in the emergency room, bed 17. The patient has altered mental status. She does open her eyes, but is not able to provide any history. VITALS: Blood pressure 141/82, respiratory rate 18, pulse 108, temperature 99.4. On admission temperature 100.5. HEENT: Head is normocephalic. CHEST: Fair air entry. Decreased at the bases. HEART: S1 and S2 positive. Regular rhythm. Tachycardia. ABDOMEN: Soft. Again, physical examination is very limited because the patient is not able to comply with our physical examination. DIAGNOSTIC STUDIES IMAGING: CT scan of the head was done, which was normal. LABORATORY: Lactic acid is 1.5. ABG shows pH 7.36, pCO2 43.8, pO2 57.3, oxygen saturation 89.5%. This was on 12 liter flow. White blood cell count 7.3, hemoglobin 10.6, hematocrit 32.5, platelets 226. Sodium 140, potassium 5.6, BUN 28, creatinine 1.6. Urinalysis is normal. ASSESSMENT/PLAN The patient is being admitted to telemetry unit with 1. Altered mental status, possible drug overdose. 2. Right upper lobe infiltrate healthcare facility acquired pneumonia. 3. Hyperkalemia. 4. Acute hypoxic respiratory failure secondary to pneumonia. 5. Acute on chronic renal failure. 6. Chronic obstructive pulmonary disease. 7. History of nonischemic cardiomyopathy with ejection fraction of 30%-35%. 8. History of opiate abuse. 9. Diabetes mellitus. PLAN Unit #: [id number] #: [id number] Patient: SONIA CHRISTIANSON Admit to telemetry unit. Dr. Thompson has been consulted. IV antibiotics including Zosyn, tobramycin and vancomycin are being started. Pharmacy will dose. Dr. Carreno will be consulted. Home medications are on hold at this time because she is kind of altered and we will have to do speech evaluation before starting the medications. Lovenox 40 mg subcutaneous daily. Levemir is on hold at this time. Continue Accu-Cheks morning and evening with insulin sliding scale low-dose protocol. IV Protonix is being added. Please refer to progress note for further orders. Dictated by Sal Reid TD: 12/19/2016 10:24 JOB #: [id number] HISTORY AND PHYSICAL Page 1 of 1 X Tracy Quiroz MD X HISTORY AND PHYSICAL
--- NOTE | ~2016-12-18 | CR63 ---
[facility] A Service of [facility] & [facility] RADIOLOGY TEXT RESULTS PATIENT: SONIA CHRISTIANSON LOCATION: [facility] 570-01 : [birth year] UNIT #: [id number] AGE: [address]: Tracy Quiroz MD SEX: F ORDER DR: [id number] [facility] [address] [place], [place] [address] [id number] I MR#: [id number] Acc #: [id number] NAME: SONIA CHRISTIANSON : 1960 SEX: F STUDY DATE/TIME: 12/21/2016 7:24 UNIT: [facility] ROOM: [facility] STUDY DESCRIPTION: CR Chest 2 View Attending Physician: Tracy Quiroz M.D. Ordering Physician: Lila Thompson M.D. Primary Care Physician: Mil Dial M.D. MEDICAL IMAGING REPORT This report is preliminary unless electronic signature is present EXAM PA and lateral chest 12/21/2016 COMPARISON 12/18/2016 HISTORY Heart failure follow up. FINDINGS An AP portable view is obtained. Cardiac size in the patient is normal. Transvenous pacemaker is in good position. There is a nodular density projected over the right upper lobe. Lungs otherwise appear clear. Pleural effusions have resolved. CONCLUSION Status post pacemaker placement. Ill-defined right upper lobe density which has not changed significantly. Resolution of heart failure. Dictated by... Naseem Benz M.D. THIS IS AN ELECTRONICALLY VERIFIED REPORT Naseem Benz M.D. at 12/23/2016 2:19 PM Celeste TD: 12/21/2016 11:02 JOB #: [id number] MEDICAL IMAGING REPORT Page 1 of 1 COPY
--- NOTE | ~2016-12-18 | CR7 ---
[facility] A Service of [facility] RADIOLOGY TEXT RESULTS PATIENT: SONIA CHRISTIANSON LOCATION: [facility] : 62 UNIT #: [id number] AGE: [address]: Tracy Quiroz MD SEX: F ORDER DR: [id number] [facility] [address] [facility]. [place], [place] [address] [id number] I MR#: [id number] Acc #: [id number] NAME: SONIA CHRISTIANSON : 1960 SEX: F STUDY DATE/TIME: 12/20/2016 15:44 UNIT: [facility] ROOM: [facility] STUDY DESCRIPTION: CR Abdomen Single AP View Attending Physician: Tracy Quiroz M.D. Ordering Physician: Tracy Quiroz M.D. Primary Care Physician: Mil Dial M.D. MEDICAL IMAGING REPORT This report is preliminary unless electronic signature is present EXAM Frontal abdomen 12/20/2016 INDICATIONS 56-year-old female with diarrhea for 2 days. Rash. TECHNIQUE Frontal abdomen was performed. COMPARISON None. FINDINGS Patchy areas of consolidation are present in the mid, upper and lower lung zone on the right suspicious for pneumonia. Postop changes of cholecystectomy are present. Bowel gas pattern demonstrates no dilated air-filled loops of bowel. No mass effect. Probable vascular calcifications in the pelvis. IMPRESSION 1. Patchy areas of consolidation in the right lung most characteristic of pneumonia until proven otherwise. 2. Nonspecific but nonobstructive bowel gas pattern. Postop changes of cholecystectomy. Dictated by... Hernesto Sanders M.D. THIS IS AN ELECTRONICALLY VERIFIED REPORT Hernesto Sanders M.D. at 12/20/2016 10:19 PM ASHLEE/[place] [facility] RADIOLOGY TEXT RESULTS PATIENT: SONIA CHRISTIANSON LOCATION: [facility] : 62 UNIT #: [id number] AGE: [address]: Tracy Quiroz MD SEX: F ORDER DR: TD: 12/20/2016 22:01 JOB #: [id number] MEDICAL IMAGING REPORT Page 1 of 1 COPY
--- NOTE | ~2016-12-18 | EKG ---
PATIENT: SONIA CHRISTIANSON UNIT #: [id number] Ventricular Rate: 97 BPM Atrial Rate: 97 BPM P-R Interval: 136 ms QRS Duration: 80 ms Q-T Interval: 332 ms QTC Calculation(Bezet): 421 ms P [place]: 61 degrees Calculated R [place]: -7 degrees Calculated T [place]: 17 degrees Diagnosis Line: Normal sinus rhythm Diagnosis Line: Normal ECG Diagnosis Line: When compared with ECG of 16-NOV-2016 07:51, Diagnosis Line: No significant change was found Diagnosis Line: Confirmed by KVNG RIVERA MD ([id number]) on 12/19/2016 Diagnosis Line: 4:42:45 PM INTERPRETING MD: MIGUEL BECKMAN
--- NOTE | ~2016-12-18 | CT71 ---
[facility] A Service of [facility] RADIOLOGY TEXT RESULTS PATIENT: SONIA CHRISTIANSON LOCATION: [facility] [address]-09 : 62 UNIT #: [id number] AGE: [address]: Tracy Quiroz MD SEX: F ORDER DR: [id number] [facility] [address] [place], [place] [address] [id number] MR#: [id number] Acc #: [id number] NAME: SONIA CHRISTIANSON : 1960 SEX: F STUDY DATE/TIME: 12/18/2016 23:10 UNIT: [facility] ROOM: STUDY DESCRIPTION: CT Head Wo Contrast Attending Physician: Charbel Carbajal M.D. Ordering Physician: Charbel Carbajal M.D. Primary Care Physician: Mil Dial M.D. MEDICAL IMAGING REPORT This report is preliminary unless electronic signature is present EXAM Head CT 12/18 at 23:10 INDICATIONS Lethargy and headache after overdose and 8 o'clock this evening. This CT exam was performed with one or more of the following radiation dose reduction techniques: automatic control, adjustment of mA and/or kV according to patient size, and iterative reconstruction. FINDINGS Axial images were obtained from the base to vertex without contrast. Comparison made with 08/02/2015. Ventricular size and configuration are normal. No acute infarct or hemorrhage. No masses. No skull fracture. IMPRESSION Negative head CT. Dictated by... Del Saba Jr., M.D. THIS IS AN ELECTRONICALLY VERIFIED REPORT Del Saba Jr., M.D. at 12/19/2016 5:24 AM VIK/ben TD: 12/19/2016 02:49 JOB #: [id number] MEDICAL IMAGING REPORT Page 1 of 1 COPY
--- NOTE | ~2016-12-18 | CO ---
Unit #: [id number] #: [id number] Patient: SONIA CHRISTIANSON [id number] [facility]. [place], [place] [address] [id number] I MR#: [id number] NAME: SONIA CHRISTIANSON ROOM: 570 Age: 56 Sex: F Admission Date: 12/19/2016 : 1960 Attending Physician: Tracy Quiroz M.D. Primary Care Physician: Mil Dial M.D. Consultation Date: 12/21/2016 CONSULTATION REPORT REASON FOR CONSULTATION Followup. DISCUSSION Ms. Busch is a 56-year-old female, seen in room 570 bed 1 in [facility] on 12/21/2016. The patient reports feeling better, decrease in anxiety. The patient was oriented to self. The patient has a sitter, able to answer some questions, currently on haloperidol. The patient's vital signs; temperature 98.5, pulse 91, respirations 22, blood pressure 141/89, oxygen saturation 95%. The patient did not show any aggression or agitation, but still having confusion. REVIEW OF SYSTEMS Complete review of systems is unremarkable except as mentioned above. MENTAL STATUS EXAMINATION General appearance, the patient dressed casually in hospital attire. Attention span and concentration, poor. Speech, slow. Orientation in self and place. Mood and affect were labile, flat. Thought process, circumstantial. Thought content, guarded and paranoid, but denied any thoughts of harming self or others. Recent and remote memory, poor. Language, fair. Fund of knowledge, impaired. Insight and judgment, impaired. DIAGNOSES 1. Delirium, F05. 2. Psychosis, not otherwise specified, F29.0. ASSESSMENT/PLAN 1. Supportive psychotherapy and psychoeducation provided to the patient. 2. Educated about benefits and side effects of medication and course and prognosis of illness. 3. Advised to continue with current medication. If needed, consider further adjustment of medication. We will continue to follow. Please feel free to call if any questions telephone #[phone]. Dictated by... Aldo Carreno M.D. NICK/karlee TD: 12/22/2016 05:34 JOB #: [id number] Unit #: [id number] #: [id number] Patient: SONIA CHRISTIANSON CONSULTATION REPORT Page 1 of 1 X Aldo Carreno MD CONSULTATION REPORT
--- NOTE | ~2016-12-18 | CO ---
Unit #: [id number] #: [id number] Patient: JO-ANN SWAIN [id number] [address] [place], [place] [address] [id number] I MR#: [id number] NAME: JO-ANN SWAIN ROOM: 570 Age: 56 Sex: F Admission Date: 12/19/2016 : 1960 Attending Physician: Tracy Quiroz M.D. Primary Care Physician: Mil Dial M.D. Consultation Date: 12/24/2016 CONSULTATION REPORT REASON FOR CONSULTATION Followup. DISCUSSION Ms. Jo-Ann Swain is a 56-year-old female, seen on 12/24/2016 in room 570 in bed 1. The patient was compliant and cooperative, has a sitter, and reports medication is helping her. Denied any thoughts of harming self or others. The patient was able to answer questions appropriately. No side effects from medication. The patient's vital signs were stable. REVIEW OF SYSTEMS Complete review of systems is unremarkable. MENTAL STATUS EXAMINATION General appearance, the patient dressed in hospital attire. Attention span and concentration, fair. Speech, regular rate and coherent. Oriented in time, place, and person. Mood and affect were labile. Thought process, circumstantial. Thought content, the patient denied any thoughts of harming self or others or any auditory or visual hallucination, but somewhat guarded. Recent and remote memory, fair. Language, intact. Fund of knowledge, fair. Insight and judgment, fair to slightly impaired. DIAGNOSIS Psychiatric: Bipolar mood disorder, not otherwise specified, F31.89. ASSESSMENT AND PLAN 1. Supportive psychotherapy and psychoeducation provided to the patient. 2. Educated about benefits and side effects of medication and course and prognosis of illness. The patient may be released to follow up in outpatient program once the patient is medically stable. Continue with current treatment at this time. Please feel free to call if any questions, telephone #[phone]. Dictated by... Aldo Carreno M.D. NICK/karlee TD: 12/25/2016 04:16 JOB #: [id number] Unit #: [id number] #: [id number] Patient: JO-ANN SWAIN CONSULTATION REPORT Page 1 of 1 X Aldo Carreno MD CONSULTATION REPORT
--- NOTE | ~2016-12-18 | DS ---
Unit #: [id number] #: [id number] Patient: SONIA CHRISTIANSON [id number] [place], [place] [address] [id number] I MR#: [id number] NAME: SONIA CHRISTIANSON ROOM: 570 Age: 56 Sex: F Admission Date: 12/19/2016 : 1960 Discharge Date: 12/24/2016 Attending Physician: Tracy Quiroz M.D. Primary Care Physician: Mil Dial M.D. DISCHARGE SUMMARY DISCHARGE DIAGNOSES 1. Status post acute hypoxemic respiratory failure. 2. Status post acute exacerbation of chronic obstructive pulmonary disease. 3. Pneumonia. 4. Chronic kidney disease with hypocalcemia. 5. History of cardiomyopathy. 6. Anxiety. 7. Altered mental status and toxic metabolic encephalopathy, resolving and resolved. 8. Hypertension. 9. Diabetes. DISCHARGE MEDICATIONS 1. Prednisone tapering dose over 7 days. 2. Calcitriol 0.25 mcg p.o. daily. 3. Levaquin 750 mg p.o. daily for 5 more days. 4. Tums 500 mg p.o. b.i.d. 5. Klonopin 0.5 mg p.o. b.i.d. 6. Ventolin two puffs inhaled q.4 h. 7. Symbicort tow puffs inhaled b.i.d. 8. Tylenol p.r.n. 9. Magnesium oxide 800 mg p.o. daily. 10. Celexa 20 mg daily. 11. Cetirizine 10 mg daily. 12. Seroquel 100 mg h.s. 13. Nicotine patch daily. 14. Coreg 25 mg daily. 15. Hydralazine 25 mg daily. 16. Lipitor 20 mg daily. 17. Clonidine 0.2 mg p.o. t.i.d. 18. Hydralazine 25 mg p.o. q.6 h. for systolic blood pressure more than 150. 19. Lisinopril 10 mg daily. 20. Levemir 7 units subcu h.s. 21. Pepcid 20 mg daily. 22. Home Bradley 10/325 advised to take half tablets t.i.d. p.r.n. for pain. CONSULTANTS 1. Dr. Sandoval, pulmonary. 2. Dr. Carreno, psychiatry. DIAGNOSTIC STUDIES 1. Chest x-ray on admission infiltrate in the right upper lobe Unit #: [id number] #: [id number] Patient: SONIA CHRISTIANSON characteristic of pneumonia. 2. CT head without contrast negative. 3. Abdominal x-ray right lung patchy areas, otherwise unremarkable. 4. CT chest without contrast. Patchy bilateral area of opacities in both lungs consistent with the acute infectious inflammatory process. LABORATORY Blood culture negative. HISTORY Please refer to the History and Physical done by my colleague, Dr. Quiroz, for initial presentation on this female. HOSPITAL COURSE Acute hypoxemic respiratory failure secondary to acute exacerbation of COPD and pneumonia. The patient was treated with bronchodilators, steroids, antibiotics and was followed by consumer insights specialist. She was also treated with the IV steroids. Now weaned off of the steroids and switched to p.o. so switched the antibiotics to p.o. Levaquin. Stable from pulmonary standpoint to be discharged. Altered mental status and toxic metabolic encephalopathy along with anxiety status post evaluation per Dr. Carreno. She was maintained on Cogentin and Haldol in the hospital. Okay to discharge with the Seroquel and Celexa. Outpatient followup with primary care physician or the primary psychiatrist. Hypertension. Resume home medications. See discharge medication reconciliation as above. Diabetes. Continue Levemir. Hypocalcemia along with the CKD. Starting on Tums and calcitriol. DISPOSITION Going home. FOLLOWUP With primary care physician in two to three days. Dictated by... Sal Pearson/keshia TD: 12/24/2016 22:37 JOB #: [id number] Unit #: [id number] #: [id number] Patient: SONIA CHRISTIANSON DISCHARGE SUMMARY Page 1 of 1 X Rodriguez Cordova MD DISCHARGE SUMMARY
--- NOTE | ~2016-12-18 | CR72 ---
[facility] A Service of [facility] RADIOLOGY TEXT RESULTS PATIENT: SONIA CHRISTIANSON [facility] 62 UN[facility] #: [id number] AGE: [address]: Tracy Quiroz MD SEX: F ORDER DR: [id number] [facility] [address] [facility] [address] [place], [place] [address] [id number] MR#: [id number] Acc #: [id number] NAME: SONIA CHRISTIANSON : 1960 SEX: F STUDY DATE/TIME: 12/18/2016 21:46 UNIT: [facility] ROOM: STUDY DESCRIPTION: CR Chest Single View Portable Attending Physician: Charbel Carbajal M.D. Ordering Physician: Ed Leander Lee M.D. Primary Care Physician: Mil Dial M.D. MEDICAL IMAGING REPORT This report is preliminary unless electronic signature is present EXAM Portable chest 12/18/2016 HISTORY Weakness and shortness of breath status post overdose today. FINDINGS The heart is normal in size. Cardiac pacemaker is unchanged. There is ill-defined infiltrate in the right upper lobe. Infiltrate and/or atelectasis is seen at the lung bases. There are no pleural effusions. No pneumothorax. IMPRESSION 1. Infiltrate in the right upper lobe characteristic of pneumonia. 2. Poor inspiratory result with bibasilar atelectasis or infiltrates. Dictated by... Jarred Sparrow M.D. THIS IS AN ELECTRONICALLY VERIFIED REPORT Jarred Sparrow M.D. at 12/19/2016 1:15 PM СВЕТЛАНА/ben TD: 12/19/2016 00:28 JOB #: [id number] MEDICAL IMAGING REPORT Page 1 of 1 COPY
--- NOTE | ~2016-12-18 | CT57 ---
[facility] A Service of [facility] RADIOLOGY TEXT RESULTS PATIENT: SONIA CHRISTIANSON LOCATION: [facility] : 62 UNIT #: [id number] AGE: [address]: Tracy Quiroz MD SEX: F ORDER DR: [id number] [facility] [address]. [place], [place] [address] [id number] I MR#: [id number] Acc #: [id number] NAME: SONIA CHRISTIANSON : 1960 SEX: F STUDY DATE/TIME: 12/21/2016 7:40 UNIT: [facility] ROOM: [facility] STUDY DESCRIPTION: CT Chest Wo Cont Attending Physician: Tracy Quiroz M.D. Ordering Physician: Lila Thompson M.D. Primary Care Physician: Mil Dial M.D. MEDICAL IMAGING REPORT This report is preliminary unless electronic signature is present EXAM CT chest INDICATIONS Acute hypoxic respiratory failure. COPD exacerbation. Confusion. COPD. TECHNIQUE CT of the thorax without contrast. Coronal and sagittal reconstructions were obtained. This CT exam was performed with one or more of the following radiation dose reduction techniques: automatic exposure control, adjustment of mA and/or kV according to patient size, and iterative reconstruction. COMPARISON CT chest dated 01/09/2016 and 11/25/2016 FINDINGS There has been development of some patchy airspace opacities in the right upper lobe. There is some tree-in-bud nodularity the left upper lobe. No areas of lobar consolidation. There is some patchy opacities in the right lower lobe as well. Central airways are patent. No pathologically enlarged mediastinal or hilar lymph nodes. No pericardial or pleural effusion. Limited images of the upper abdomen were obtained. There is no acute findings. IMPRESSION Development of patchy bilateral airspace opacities in both lungs consistent with acute infectious/inflammatory process. This is most pronounced in the right upper lobe. [facility] A Service of [facility] RADIOLOGY TEXT RESULTS PATIENT: SONIA CHRISTIANSON LOCATION: [facility] 570 : [birth year] UNIT #: [id number] AGE: [address]: Tracy Quiroz MD SEX: F ORDER DR: Dictated by... Esau Duenas M.D. THIS IS AN ELECTRONICALLY VERIFIED REPORT Esau Duenas M.D. at 12/22/2016 9:05 AM C/ira TD: 12/21/2016 21:18 JOB #: [id number] MEDICAL IMAGING REPORT Page 1 of 1 COPY
--- NOTE | ~2016-12-18 | CO ---
Unit #: [id number] #: [id number] Patient: SONIA CHRISTIANSON [id number] [facility] [address]. [place], [place] [address] [id number] I MR#: [id number] NAME: SONIA CHRISTIANSON ROOM: 570 Age: 56 Sex: F Admission Date: 12/19/2016 : 1960 Attending Physician: Tracy Quiroz M.D. Primary Care Physician: Mil Dial M.D. Consultation Date: 12/20/2016 CONSULTATION REPORT REASON FOR CONSULTATION Confusion, altered mental status, delirium. HISTORY OF PRESENT ILLNESS Ms. Busch is a 56-year-old female, seen on 12/20/2016 in room 570, bed 1 at [facility]. The patient was confused, refusing to answer any question. The patient was not wearing her clothes, keeping her sheet on, seen in the presence of nursing staff. The patient refusing to answer any question to the sign writer hand as well as to the nursing staff. The patient has a history of previous admission in 11/26/2016 with a diagnosis of acute renal failure, hypertension, delirium, confusion, and opioid abuse. The patient was admitted on 12/19/2016 in altered mental status. The patient has a history of hypotension, acute renal failure. The patient has significant cardiac disease with an ejection fraction of 35%. PAST PSYCHIATRIC HISTORY Remarkable for confusion earlier, history of depression and anxiety. No history of any other psychiatric illness known at this time. MEDICAL HISTORY History of significant cardiac disease with nonischemic cardiomyopathy, atrial implantable cardioverter defibrillator placement, cardiac arrest in 2014, hypertension, dyslipidemia, diabetes mellitus type 2, chronic obstructive pulmonary disease. MEDICATIONS The patient is currently on Klonopin 0.5 mg b.i.d., Seroquel 100 mg at bedtime, Elsie, Celexa 20 mg daily, Lipitor, Ventolin, Symbicort, lisinopril, Tylenol, hydralazine, Pepcid, [place], prednisone, Coreg, aspirin, clonidine, Levemir, nicotine patch, hydrochlorothiazide. FAMILY HISTORY AND SOCIAL HISTORY The patient has a good support from family. No history of any abuse. History of opioid abuse according to previous history. The patient's urine drug screen positive for benzodiazepine and opioids. REVIEW OF SYSTEMS Complete review of systems unobtainable, but only positive for confusion at this time. MENTAL STATUS EXAMINATION General appearance; the patient lying comfortably in bed in right lateral position, refusing to answer any question, guarded, and paranoid. Attention span and concentration, poor. Speech, unable to test. Unit #: [id number] #: [id number] Patient: SONIA CHRISTIANSON Orientation unable to assess. Mood and affect, flat. Thought process, circumstantial. Thought content, circumstantial. Recent and remote memory, poor. Language, unable to test, but the patient has intelligible speech. Fund of knowledge, impaired. Insight and judgment, impaired. DIAGNOSES Psychiatric: Delirium, F05, worsen; psychosis, not otherwise specified, F29.0. Secondary diagnosis: Deferred. Medical diagnosis: Please refer to H and P. Stressors: Psychosocial stressors. ASSESSMENT/PLAN 1. Supportive psychotherapy and psychoeducation provided to patient, but the patient unable to comprehend much. 2. Continue with current supportive treatment at this time and tried to stabilize the patient's medical condition. 3. Recommending at this time to monitor the patient's mood and behavior closely and advised haloperidol 5 mg t.i.d. and Cogentin 1 mg t.i.d. for the above-mentioned symptom. Advised to hold medication if the patient too sleepy or drowsy. Please feel free to call if any questions, telephone #[phone]. Dictated by... Sal Santos/karlee TD: 12/21/2016 02:22 JOB #: [id number] CONSULTATION REPORT Page 1 of 1 X Aldo Carreno MD X CONSULTATION REPORT
[~2016-12-18 21:24] MED LIST changes: +ASPIRIN81 MG PO; +NORCO 10-325 TA1 TAB PO; +PREDNISONE5 MG PO
[2016-12-18 21:37] LABS: ARTERIAL BLD GAS O2 SATURATION 89.5 % (90.0-100.0); ARTERIAL BLOOD GAS CARBOXY HB 2.4 %sat (0.0-9.0); ARTERIAL BLOOD GAS HCO3 25.1 mmol/L; ARTERIAL BLOOD GAS MET HB 0.6 %sat (0.0-2.0); ARTERIAL BLOOD GAS PCO2 43.8 mmHg (35.0-45.0); ARTERIAL BLOOD GAS pH 7.366 (7.350-7.450)
[2016-12-18 21:38] LABS: ARTERIAL BLOOD GAS ALLEN TEST NORMAL; ARTERIAL BLOOD GAS ART SITE RIGHT RADIAL; ARTERIAL BLOOD GAS DELIVERY VENTURI MASK; ARTERIAL BLOOD GAS PO2 57.3 mmHg (80.0-100); ARTERIAL DRAW? YES
[2016-12-18 22:12] LABS: BASOPHIL% 0.5 % (0-2.5); EOSINOPHIL# 0.2 X10e3 (0-0.7); EOSINOPHIL% 2.1 % (0.0-7.0); HEMATOCRIT 32.5 % (35.0-45.0); HEMOGLOBIN 10.6 gm/dL (12.0-16.0); LYMPHOCYTE# 1.5 X10e3 (1.0-3.5); LYMPHOCYTE% 20.6 % (17.0-45.0); MEAN CELL VOLUME 90.1 FL (83-96); MEAN CORPUSCULAR HEMOGLOBIN 29.3 PG (28-34); MEAN CORPUSCULAR HGB CONC 32.5 g/dL (30-36); MEAN PLATELET VOLUME 6.9 FL (6.5-11.5); MONOCYTE# 0.6 X10e3 (0-1.0); MONOCYTE% 8.4 % (3.0-12.0); NEUTROPHIL% 68.4 % (40-75); PLATELET COUNT 226 X10e3 (140-420); RED BLOOD COUNT 3.61 X10e (3.90-5.30); RED CELL DISTRIBUTION WIDTH 15.9 % (11.0-15.5); WHITE BLOOD COUNT 7.3 X10e3 (4.0-10.5)
[2016-12-18 22:15] LABS: DIFF IND NO
[2016-12-18 22:36] LABS: ALBUMIN SERUM 3.2 g/dL (3.5-5.0); ALKALINE PHOSPHATASE 113 U/L (32-92); ALT (SGPT) 20 U/L (10-40); AST (SGOT) 21 U/L (10-42); BILIRUBIN,TOTAL 0.5 mg/dL (0.2-2.0); BLOOD UREA NITROGEN 28 mg/dL (9-23); CALCIUM SERUM 6.6 mg/dL (8.4-10.2); CARBON DIOXIDE 26 mmol/L (22-31); CHLORIDE 101 mmol/L (100-111); CREATININE SERUM 1.6 mg/dL (0.6-1.4); GLOM FILT RATE Estimated 35.9 mL/min (>60); GLUCOSE FASTING 127 mg/dL (70-110); SALICYLATE <4.0 mg/dL; SODIUM 140 mmol/L (135-145)
[2016-12-18 22:39] LABS: ACETAMINOPHEN <10 ug/mL; ALCOHOL BLOOD <5 mg/dL (0); BILIRUBIN, DIRECT 0.1 mg/dL (0.0-0.2); BILIRUBIN,INDIRECT 0.4 mg/dL (0.0-0.9); POTASSIUM 5.6 mmol/L (3.5-5.1)
[2016-12-18 22:42] LABS: URINE SOURCE CLEAN CATCH
[2016-12-18 22:49] LABS: URINE APPEARANCE CLOUDY; URINE BILIRUBIN NEG (NEG); URINE BLOOD NEG (NEG); URINE COLOR YELLOW; URINE GLUCOSE NEG (NEG); URINE KETONE TRACE (NEG); URINE LEUKOCYTE ESTERASE NEG (NEG); URINE NITRATE NEG (NEG); URINE PROTEIN NEG (NEG); URINE SPECIFIC GRAVITY 1.021 (1.003-1.035); URINE UROBILINOGEN 0.2 MG/DL (NEG)
[2016-12-18 22:56] LABS: CULTURE INDICATED? NO
[2016-12-18 22:58] LABS: AMPHETAMINE NEG (NEG); BARBITURATES NEG (NEG); BENZODIAZEPINES POS (NEG); COCAINE NEG (NEG); MARIJUANA NEG (NEG); OPIATES POS (NEG); TRICYCLIC ANTIDEPRESSANTS POS (NEG); U METHADONE NEG (NEG)
[2016-12-19] MEDS ORDERED: UROMAG84.5 MG PO (01:29)
[2016-12-19] MEDS ORDERED: LEVEMIR100 UNITS/ SUBQ (01:30)
[2016-12-19] MEDS ORDERED: CLONIDINE1 EAC1 PO (01:30)
[2016-12-19] MEDS ORDERED: NICOTINE TRANSD14 MG TOP (01:31)
[2016-12-19] MEDS ORDERED: HYDROCHLOROTHIA25 MG PO (01:41)
[2016-12-19 08:58] LABS: CALCIUM SERUM 6.1 mg/dL (8.4-10.2); GLOM FILT RATE Estimated 63.4 mL/min (>60); POTASSIUM 4.1 mmol/L (3.5-5.1)
[2016-12-19 16:22] LABS: ARTERIAL BLD GAS O2 SATURATION 88.6 % (90.0-100.0); ARTERIAL BLOOD GAS ALLEN TEST NORMAL; ARTERIAL BLOOD GAS ART SITE RIGHT RADIAL; ARTERIAL BLOOD GAS CARBOXY HB 0.9 %sat (0.0-9.0); ARTERIAL BLOOD GAS MET HB 0.6 %sat (0.0-2.0); ARTERIAL BLOOD GAS PCO2 40.5 mmHg (35.0-45.0); ARTERIAL BLOOD GAS PO2 51.7 mmHg (80.0-100); ARTERIAL BLOOD GAS pH 7.507 (7.350-7.450); ARTERIAL DRAW? YES
[2016-12-20 02:29] LABS: HEMATOCRIT 27.9 % (35.0-45.0); HEMOGLOBIN 9.4 gm/dL (12.0-16.0); MEAN CELL VOLUME 87.6 FL (83-96); MEAN CORPUSCULAR HEMOGLOBIN 29.5 PG (28-34); MEAN CORPUSCULAR HGB CONC 33.7 g/dL (30-36); MEAN PLATELET VOLUME 7.2 FL (6.5-11.5); RED BLOOD COUNT 3.18 X10e (3.90-5.30); RED CELL DISTRIBUTION WIDTH 15.7 % (11.0-15.5); WHITE BLOOD COUNT 4.4 X10e3 (4.0-10.5)
[2016-12-20 03:24] LABS: CALCIUM SERUM 6.2 mg/dL (8.4-10.2); CREATININE SERUM 0.6 mg/dL (0.6-1.4); GLOM FILT RATE Estimated 102.6 mL/min (>60); POTASSIUM 3.2 mmol/L (3.5-5.1)
[2016-12-20 12:28] LABS: ARTERIAL BLD GAS O2 SATURATION 95.1 % (90.0-100.0); ARTERIAL BLOOD GAS CARBOXY HB 0.8 %sat (0.0-9.0); ARTERIAL BLOOD GAS MET HB 0.5 %sat (0.0-2.0); ARTERIAL BLOOD GAS PCO2 32.6 mmHg (35.0-45.0); ARTERIAL BLOOD GAS pH 7.573 (7.350-7.450)
[2016-12-20 12:29] LABS: ARTERIAL BLOOD GAS ALLEN TEST NORMAL; ARTERIAL BLOOD GAS ART SITE RIGHT RADIAL; ARTERIAL BLOOD GAS PO2 70.5 mmHg (80.0-100); ARTERIAL DRAW? YES
[2016-12-21 04:44] LABS: ARTERIAL BLD GAS O2 SATURATION 95.2 % (90.0-100.0); ARTERIAL BLOOD GAS ALLEN TEST NORMAL; ARTERIAL BLOOD GAS ART SITE RIGHT RADIAL; ARTERIAL BLOOD GAS CARBOXY HB 0.7 %sat (0.0-9.0); ARTERIAL BLOOD GAS HCO3 27.9 mmol/L; ARTERIAL BLOOD GAS MET HB 0.6 %sat (0.0-2.0); ARTERIAL BLOOD GAS PCO2 33.2 mmHg (35.0-45.0); ARTERIAL BLOOD GAS PO2 73.2 mmHg (80.0-100); ARTERIAL BLOOD GAS pH 7.532 (7.350-7.450); ARTERIAL DRAW? YES
[2016-12-21 07:11] LABS: HEMATOCRIT 31.5 % (35.0-45.0); HEMOGLOBIN 10.4 gm/dL (12.0-16.0); MEAN CORPUSCULAR HEMOGLOBIN 29.3 PG (28-34); MEAN CORPUSCULAR HGB CONC 32.9 g/dL (30-36); MEAN PLATELET VOLUME 7.7 FL (6.5-11.5); RED BLOOD COUNT 3.54 X10e (3.90-5.30); RED CELL DISTRIBUTION WIDTH 16.1 % (11.0-15.5); WHITE BLOOD COUNT 6.1 X10e3 (4.0-10.5)
[2016-12-21 07:52] LABS: ALBUMIN SERUM 3.3 g/dL (3.5-5.0); BILIRUBIN,TOTAL 0.7 mg/dL (0.2-2.0); CALCIUM SERUM 6.6 mg/dL (8.4-10.2); CREATININE SERUM 0.8 mg/dL (0.6-1.4); GLOM FILT RATE Estimated 83.1 mL/min (>60); POTASSIUM 3.5 mmol/L (3.5-5.1)
[2016-12-23 19:55] LABS: BUN/CREATININE RATIO 10.9; CALCIUM SERUM 6.6 mg/dL (8.4-10.2); CREATININE SERUM 1.1 mg/dL (0.6-1.4); GLOM FILT RATE Estimated 56.5 mL/min (>60)
[2016-12-24 07:30] LABS: HEMATOCRIT 29.9 % (35.0-45.0); HEMOGLOBIN 9.8 gm/dL (12.0-16.0); MEAN CELL VOLUME 88.2 FL (83-96); MEAN CORPUSCULAR HGB CONC 32.9 g/dL (30-36); RED BLOOD COUNT 3.39 X10e (3.90-5.30); RED CELL DISTRIBUTION WIDTH 15.7 % (11.0-15.5); WHITE BLOOD COUNT 6.5 X10e3 (4.0-10.5)
[2016-12-24 08:15] LABS: CALCIUM SERUM 6.6 mg/dL (8.4-10.2); CREATININE SERUM 0.9 mg/dL (0.6-1.4); POTASSIUM 3.2 mmol/L (3.5-5.1)
[2016-12-24] MEDS ORDERED: HYDROCODON-ACE1 EAC7 PO (18:45)
[2016-12-24] MEDS ORDERED: LEVAQUIN750 M1 PO (18:45)
[2016-12-24] MEDS ORDERED: CALCIUM CARBON500 M2 PO (18:46)
[2016-12-24] MEDS ORDERED: CALCITRIOL0.25 MC1 PO (18:49)
== END 2016-12-24 19:40 | disposition home or self-care (01) | DRG 189 ==
LOC: CED 21:24 → CEDOF 12-19 00:25 → C5C 12-19 13:50
PROVIDERS: Emergency Medicine; Hospitalist; Internal Medicine; Physician Assistant Medical
DX: J96.01 Acute respiratory failure with hypoxia (principal); G92 Toxic encephalopathy; J18.9 Pneumonia, unspecified organism; I42.8 Other cardiomyopathies; J44.0 Chronic obstructive pulmonary disease with (acute) lower respiratory infection; E83.51 Hypocalcemia; F05 Delirium due to known physiological condition; J44.1 Chronic obstructive pulmonary disease with (acute) exacerbation; I12.9 Hypertensive chronic kidney disease with stage 1 through stage 4 chronic kidney disease, or unspecified chronic kidney disease; E11.22 Type 2 diabetes mellitus with diabetic chronic kidney disease; F17.210 Nicotine dependence, cigarettes, uncomplicated; N18.9 Chronic kidney disease, unspecified; Z79.4 Long term (current) use of insulin; F41.9 Anxiety disorder, unspecified; Z95.810 Presence of automatic (implantable) cardiac defibrillator; E78.5 Hyperlipidemia, unspecified; Z98.51 Tubal ligation status; Z90.49 Acquired absence of other specified parts of digestive tract; Z90.710 Acquired absence of both cervix and uterus; Z88.5 Allergy status to narcotic agent; Z88.0 Allergy status to penicillin; Z88.2 Allergy status to sulfonamides; Z88.8 Allergy status to other drugs, medicaments and biological substances; F31.9 Bipolar disorder, unspecified; F29 Unspecified psychosis not due to a substance or known physiological condition; E87.5 Hyperkalemia; F11.10 Opioid abuse, uncomplicated
CPT/HCPCS: 36415; 36600; 51702; 70450; 71010; 71020; 71250; 74000; 80048; 80053; 80076; 80200; 80202; 80307; 81003; 82330; 82803; 82947; 83605; 83880; 85025; 85027; 87040; 92610; 93005; 94640; 94760; 96361; 96365; 96375; 99285; C9113; G0480; J0692; J1650; J1815; J1956; J2060; J2920; J3260; J3370

== ENCOUNTER 2017-01-12 16:37 | Inpatient (IN) | payer OTHER ==
--- NOTE | ~2017-01-12 | CO ---
Unit #: [id number] #: [id number] Patient: SONIA CHRISTIANSON [id number] [address] [id number] I MR#: [id number] NAME: SONIA CHRISTIANSON ROOM: [facility] Age: 56 Sex: F Admission Date: 01/12/2017 : 1960 Attending Physician: Rodriguez Cordova M.D. Primary Care Physician: Mil Dial M.D. Consultation Date: 01/13/2017 CONSULTATION REPORT REASON FOR CONSULT ICU management. HISTORY OF PRESENT ILLNESS This is a very well known 56-year-old female, who sees Dr. Dial as a primary care physician and Dr. Thompson as a video games mechanic, who is frequently in the hospital with severe sepsis and recurrent pneumonia, who presented to the emergency room with abdominal pain and vomiting. Upon presentation to the ER, she was hypertensive with elevated lactic acid. Her CT abdomen did not show any acute finding. However, it detected micronodular infiltrate in the bilateral lower lobes of her lungs but the finding is very subtle. No shortness of breath or cough. No headache. The patient had a low-grade fever in the ICU. The patient had multiple social issues recently. PAST MEDICAL HISTORY 1. Nonischemic cardiomyopathy. 2. Status post cardiac arrest. 3. Hypertension. 4. Hyperlipidemia. 5. Diabetes. 6. COPD. 7. Tobacco abuse. PAST SURGICAL HISTORY 1. AICD placement. 2. Cholecystectomy. 3. Tubal ligation. 4. Right knee surgery. 5. Hysterectomy. SOCIAL HISTORY The patient is an active smoker. No history of alcohol or drug abuse. She has a history of polysubstance abuse in the past. FAMILY HISTORY Unremarkable. ALLERGIES 1. Penicillin. 2. Sulfa. Unit #: [id number] #: [id number] Patient: SONIA CHRISTIANSON 3. Amaryl. 4. Codeine. REVIEW OF SYSTEMS A 12-point review of systems was obtained and was negative except for what was mentioned in the HPI. PHYSICAL EXAMINATION GENERAL APPEARANCE: The patient is ill appearing overall but not in severe distress. HEENT: Head: Atraumatic, normocephalic. PERRLA. EOMI. NECK: Supple. No JVD. No lymphadenopathy. CHEST: Decreased breath sounds bilaterally but no wheezing or rhonchi. HEART: S1, S2. No murmur, gallops or rubs. ABDOMEN: Soft, nontender except to deep palpation. No rebound. LOWER EXTREMITIES: No edema or cyanosis. CENTRAL NERVOUS SYSTEM: The patient is awake and there is no focal motor/sensory deficit. DIAGNOSTIC STUDIES LABORATORY: Creatinine 2.9, bicarb 19. WBC count 11.9. Lactic acid on presentation was 4.2. IMAGING: CT abdomen is concerning for micronodular infiltrate in the lung bases. ASSESSMENT 1. Septic shock. 2. Rule out atypical pneumonia. 3. Rule out UTI. 4. Acute kidney injury. 5. Anuria. 6. Hypertension. 7. COPD. PLAN 1. The patient is ill appearing but in no acute distress. 2. We will continue the patient on IV fluid per sepsis guidelines and we will continue to follow lactic acid. The patient currently is anuric. We will continue IV hydration but she may eventually need hemodialysis. 3. Renal evaluation is pending. 4. We will change antibiotics given her anuria and acute kidney injury to azithromycin to cover atypical pneumonia, aztreonam to cover possible UTI. 5. Bronchodilator and pulmonary toilet. 6. We will continue patient on Levophed and add Midodrine. 7. DVT prophylaxis. 1. Dictated by... Sal Alejandro TD: 01/13/2017 08:48 JOB #: [id number] Unit #: [id number] #: [id number] Patient: SONIA CHRISTIANSON CONSULTATION REPORT Page 1 of 1 X TAWNYA FISHER MD X CONSULTATION REPORT
--- NOTE | ~2017-01-12 | US77 ---
[facility] A Service of [facility] RADIOLOGY TEXT RESULTS PATIENT: SONIA CHRISTIANSON LOCATION: [facility] CICCU2-10 : 62 UNIT #: [id number] AGE: [address]: Rodriguez Cordova MD SEX: F ORDER DR: [id number] [facility] [address] [facility]. [place], [place] [address] [id number] I MR#: [id number] Acc #: [id number] NAME: SONIA CHRISTIANSON : 1960 SEX: F STUDY DATE/TIME: 01/12/2017 21:12 UNIT: [facility] ROOM: 86623 STUDY DESCRIPTION: US Kidney Bilateral Complete Attending Physician: Rodriguez Cordova M.D. Ordering Physician: Hemant Ann M.D. Primary Care Physician: Mil Dial M.D. MEDICAL IMAGING REPORT This report is preliminary unless electronic signature is present EXAM Bilateral renal ultrasound. DATE 01/12/2017 HISTORY Acute renal insufficiency. Pain. Nausea. Vomiting since this morning. Diabetes. Hyperlipidemia. BUN 17. Creatinine 1.7. GFR 33.4. COMPARISON Bilateral renal ultrasound 11/16/2016. FINDINGS The right kidney measures 8.6 x 4.8 x 3.7 cm. The left kidney measures 9.3 x 4.6 x 4.9 cm. No cystic or solid renal mass lesion is identified. Both kidneys maintain normal cortical echotexture. No shadowing renal stone or hydronephrosis is seen on either side. Urinary bladder is not visualized, presumably decompressed. IMPRESSION 1. Normal bilateral renal ultrasound. Dictated by... Maryan Ling M.D. THIS IS AN ELECTRONICALLY VERIFIED REPORT Maryan Ling M.D. at 01/13/2017 10:02 PM MARY ANN/rina TD: 01/12/2017 22:43 JOB #: [id number] [facility] A Service of [facility] RADIOLOGY TEXT RESULTS PATIENT: SONIA CHRISTIANSON LOCATION: [facility] [id number] : [birth year] UNIT #: [id number] AGE: [address]: Rodriguez Cordova MD SEX: F ORDER DR: MEDICAL IMAGING REPORT Page 1 of 1 COPY
--- NOTE | ~2017-01-12 | EKG ---
PATIENT: SONIA CHRISTIANSON UNIT #: [id number] Ventricular Rate: 118 BPM Atrial Rate: 118 BPM P-R Interval: 114 ms QRS Duration: 86 ms Q-T Interval: 370 ms QTC Calculation(Bezet): 518 ms P [place]: 80 degrees Calculated R [place]: -11 degrees Calculated T [place]: 63 degrees Diagnosis Line: Sinus tachycardia with frequent Premature atrial Diagnosis Line: complexes Diagnosis Line: Nonspecific ST abnormality Diagnosis Line: Abnormal ECG Diagnosis Line: When compared with ECG of 18-DEC-2016 22:20, Diagnosis Line: Premature ventricular complexes are now Present Diagnosis Line: ST now depressed in Inferior leads Diagnosis Line: ST now depressed in Anterolateral leads Diagnosis Line: Nonspecific T wave abnormality no longer evident Diagnosis Line: in Anterior leads Diagnosis Line: Confirmed by JOAQUIN ESTEVEZ MD ([id number]) on 01/16/2017 Diagnosis Line: 3:50:39 PM INTERPRETING MD: ZENAIDA BECKMAN
--- NOTE | ~2017-01-12 | CT4 ---
[facility] A Service [facility] RADIOLOGY TEXT RESULTS PATIENT: SONIA CHRISTIANSON LOCATION: CICCU2 CICCU2-10 : 62 UNIT #: [id number] AGE: [address]: Rodriguez Cordova MD SEX: F ORDER DR: [id number] [facility] [address] [place], [place] [address] [id number] E MR#: [id number] Acc #: [id number] NAME: SONIA CHRISTIANSON : 1960 SEX: F STUDY DATE/TIME: 01/12/2017 16:46 UNIT: [facility] ROOM: STUDY DESCRIPTION: CT Abd and Pelv Wo Cont Attending Physician: Jason Rizvi D.O. Ordering Physician: Jason Rizvi D.O. Primary Care Physician: Mil Dial M.D. MEDICAL IMAGING REPORT This report is preliminary unless electronic signature is present EXAM CT abdomen and pelvis without contrast. INDICATIONS Generalized abdominal pain today. PROCEDURE Unenhanced CT of the abdomen and pelvis. COMPARISON 08/18/[address] exam was performed with one or more of the following radiation dose reduction techniques: automatic exposure control, adjustment of mA and/or kV according to patient size, and iterative reconstruction. FINDINGS ABDOMEN WITHOUT CONTRAST: Scattered areas of clustered micronodularity in both lung bases as well as some right basilar atelectasis. The liver is enlarged measuring 19.3 cm. The spleen, kidneys, adrenal gland, pancreas unremarkable. Previous cholecystectomy. Bowel loops are nondilated. PELVIS WITHOUT CONTRAST: Previous hysterectomy. No pelvic mass or fluid. No aggressive-appearing bone lesion. IMPRESSION No clearly acute finding. Hepatomegaly. [facility] A Service [facility] RADIOLOGY TEXT RESULTS PATIENT: SONIA CHRISTIANSON LOCATION: CICCU2 CICCU2-10 : 62 UNIT #: [id number] AGE: [address]: Rodriguez Cordova MD SEX: F ORDER DR: Clustered micronodularity in the lung bases most in keeping with infectious or inflammatory change. Dictated by... Celso Sheridan M.D. THIS IS AN ELECTRONICALLY VERIFIED REPORT Celso Sheridan M.D. at 01/13/2017 7:24 AM SELENE/rina TD: 01/12/2017 17:53 JOB #: [id number] MEDICAL IMAGING REPORT Page 1 of 1 COPY
--- NOTE | ~2017-01-12 | CT57 ---
[facility] A Service of [facility] RADIOLOGY TEXT RESULTS PATIENT: SONIA CHRISTIANSON LOCATION: [address] : [birth year] UNIT #: [id number] AGE: [address]: Rodriguez Cordova MD SEX: F ORDER DR: [id number] [facility] [address] [facility] [place] [facility]. [place], [place] [address] [id number] I MR#: [id number] #: [id number] NAME: SONIA CHRISTIANSON : 1960 SEX: F STUDY DATE/TIME: 01/13/2017 18:40 UNIT: CIC2 ROOM: [facility] STUDY DESCRIPTION: CT Chest Wo Cont Attending Physician: Rodriguez Cordova M.D. Ordering Physician: Rodriguez Cordova M.D. Primary Care Physician: Mil Dial M.D. MEDICAL IMAGING REPORT This report is preliminary unless electronic signature is present EXAM CT chest without contrast, 01/13/2017 HISTORY 56-year-old female with shortness of air and cough for [address] chest 12/21/2016. TECHNIQUE Helical scan performed through the chest without IV contrast. Coronal and sagittal reformatted images. This CT exam was performed with one or more of the following radiation dose reduction techniques: automatic exposure control, adjustment of mA and/or kV according to patient size, and iterative reconstruction. FINDINGS Thoracic aorta normal in course and caliber. Heart size is normal. Left-sided AICD complex. No pericardial effusion. No pleural effusions. No pneumothorax. There has been significant interval improvement in previously noted patchy bilateral airspace opacities since 12/21/2016. There are minimal residual infiltrates in the right upper lobe, lingula, and bilateral lower lobes. Incidental scanning through the upper abdomen demonstrates cholecystectomy. No acute bony abnormality. IMPRESSION Significant interval improvement in previously noted patchy bilateral airspace opacities with minimal residual infiltrates in both lungs, detailed above. [facility] A Service of [facility] RADIOLOGY TEXT RESULTS PATIENT: SONIA CHRISTIANSON LOCATION: [facility]2-10 : 62 UNIT #: [id number] AGE: [address]: Rodriguez Cordova MD SEX: F ORDER DR: Dictated by... Lalo Umaña M.D. THIS IS AN ELECTRONICALLY VERIFIED REPORT Lalo Umaña M.D. at 01/14/2017 4:27 PM VI/alirio TD: 01/13/2017 23:26 JOB #: [id number] MEDICAL IMAGING REPORT Page 1 of 1 COPY
--- NOTE | ~2017-01-12 | HP ---
Unit #: [id number] #: [id number] Patient: JO-ANN SWAIN [id number] [address] [address] [id number] I MR#: [id number] NAME: JO-ANN SWAIN ROOM: 21173 Age: 56 Sex: F Admission Date: 01/12/2017 : 1960 Attending Physician: Rodriguez Cordova M.D. Primary Care Physician: Mil Dial M.D. HISTORY AND PHYSICAL ADMISSION DIAGNOSES 1. Severe sepsis. 2. Abdominal pain with nausea and vomiting. 3. Hypotension. 4. Pneumonia likely healthcare-acquired pneumonia. 5. History of chronic kidney disease. 6. History of cardiomyopathy. 7. Anxiety. 8. Hypertension. 9. Diabetes. HISTORY OF PRESENT ILLNESS Ms. Jo-Ann Swain is a 56-year-old female, patient of Dr. Mil Dial, well known to our service secondary to prior admissions. She is the one with the past medical history of cardiomyopathy with the AICD placement, history of cardiac arrest, hypertension, dyslipidemia, diabetes, COPD, tobacco abuse, history of recent hospitalization for pneumonia and toxic metabolic encephalopathy along with anxiety. She also has multiple social issues with her living situation. She was brought to the emergency room secondary to increasing abdominal pain and vomiting. Initial evaluation in the ER found her with likely sepsis with severe hypotension with systolic BP in the 60s, elevated lactic acid of 4 and chest x-ray suspicious for pneumonia. She denies any chest pain, denies any headache, denies any syncope. Complains of subjective fever and chills. Denies any diarrhea. Complains of generalized abdominal pain along with the vomiting. REVIEW OF SYSTEMS Twelve-point review of systems on this patient is basically negative except as above. PAST MEDICAL HISTORY Significant for: 1. Nonischemic cardiomyopathy, status post AICD. 2. History of cardiac arrest. 3. Hypertension. 4. Dyslipidemia. 5. Diabetes. 6. COPD. 7. Tobacco abuse. PAST SURGICAL HISTORY Significant for: Unit #: [id number] #: [id number] Patient: JO-ANN SWAIN 1. AICD placement. 2. Cholecystectomy. 3. Tubal ligation. 4. Right knee surgery. 5. Hysterectomy. HOME MEDICATIONS I do not have them in front of me but these will be clarified by pharmacy and patient will be restarted accordingly. ALLERGIES 1. Penicillin. 2. Sulfa. 3. Amaryl. 4. Codeine. SOCIAL HISTORY She is an active smoker. Currently denies any alcohol or illicit drugs. Does have a history of polysubstance abuse in the past. FAMILY HISTORY Unremarkable. PHYSICAL EXAMINATION VITAL SIGNS: BP currently 96/76, heart rate 100, respirations 22, temperature 100.9. GENERAL: She is a 56-year-old ill-appearing female. HEENT: Head is atraumatic. Pupils equal, round, reactive to light and accommodation. Extraocular muscles are intact. Oropharynx is clear. NECK: Supple. No mass, no JVD, no bruits. LUNGS: Diminished bilaterally with some rhonchi. HEART: S1, S2. No murmurs. ABDOMEN: Soft but diffusely tender. No rebound. Bowel sounds are diminished. LOWER EXTREMITIES: Without any cyanosis, clubbing, or edema. NEUROLOGIC: Patient without any focal deficits. DIAGNOSTIC STUDIES LABORATORY: Blood gases were significant for pCO2 of 31 and pO2 of 65.8. Chemistry significant for creatinine 1.7, blood glucose 216, CO2 of 20. Lactic acid of over 4 per ER, but looking at the number it is 3.7 actually. Set of cardiac enzymes negative. Hematology shows a white count of 17,000. IMAGING: Chest x-ray shows some small amount of right basilar atelectasis or scarring. No pneumothorax. Heart and mediastinum unremarkable. CT abdomen and pelvis shows no clearly acute findings. ASSESSMENT AND PLAN 1. Hypotension, likely sepsis secondary to questionable pneumonia which should be treated as a healthcare-acquired pneumonia. Patient was started on aztreonam, vancomycin, and tobramycin in the ER which will be continued per pharmacy dosing. 2. Start on sepsis protocol. 3. Consult Cardiology secondary to need for fluid resuscitation and pressors with the history of nonischemic cardiomyopathy. Dr. Norton will be consulted. Unit #: [id number] #: [id number] Patient: JO-ANN SWAIN 4. Dr. Bhumi Sandoval will be patent solicitor. 5. [id number] respiratory failure. Continue bronchodilators. Pulmonary will follow. 6. History of hypertension, now hypotensive. Will hold the BP meds. 7. History of polysubstance abuse in the past. 8. Continues tobacco use. 9. Diabetes. 10. Acute renal failure. Will monitor closely with the fluid resuscitation. Consider Nephrology consult. 11. GI and DVT prophylaxis. Will start on some Pepcid and SCDs. 12. Abdominal pain and vomiting. Continue supportive care and symptomatic management. CT unremarkable. Dictated by Rodriguez Cordova M.D. OC/keshia TD: 01/12/2017 21:15 JOB #: [id number] HISTORY AND PHYSICAL Page 1 of 1 X Rodriguez Cordova MD X HISTORY AND PHYSICAL
--- NOTE | ~2017-01-12 | CO ---
Unit #: [id number] #: [id number] Patient: SONIA SWAIN [id number] [address] [place], [place] [address] [id number] I MR#: [id number] NAME: SONIA SWAIN ROOM: [facility] Age: 56 Sex: F Admission Date: 01/12/2017 : 1960 Attending Physician: Rodriguez Cordova M.D. Primary Care Physician: Mil Dial M.D. CONSULTATION REPORT REASON FOR CONSULTATION Hypotension. HISTORY OF PRESENT ILLNESS This is a 56-year-old white female with past medical history of nonischemic cardiomyopathy, her last echo showed LVEF of 30% to 35% last year without any significant valvular disease. She had normal coronaries on heart catheterization. The patient does have a history of having cardiac arrest back in 2014 that the EP study revealed easily inducible ventricular tachycardia. She does have an AICD device. She also has COPD, hypertension, diabetic, chronic kidney disease. She was just discharged from this facility on 12/24/2016 with hypoxic respiratory failure, exacerbation of her COPD, and she had toxic metabolic encephalopathy. She was brought to the emergency room on this occasion for complaints of increasing abdominal pain, nausea, vomiting, diarrhea. Her blood pressure was found to be in the 60 systolically. She had elevated lactic acid of 4. Her chest x-ray did show possibly suspicion for pneumonia. She denies any chest pain; pain in her neck; bilateral jaws, shoulders, arms, or elbow. She denies any syncope, but just felt very weak. She did think she has low-grade fever and occasional chills. She has occasional cough. CT of the abdomen and pelvis did not show anything acute. Chest x-ray showed some small amount of right bibasilar atelectasis or scarring. Her initial labs, her ABGs showed her pCO2 of 31 and PO2 of 65.8. Creatinine was 1.7. Initial cardiac enzymes are negative. WBCs are 17. EKG showed sinus tachycardia with frequent premature ventricular complexes and premature atrial complexes, some nonspecific ST-T wave abnormalities, otherwise nothing acute. The patient was given normal saline bolus, then started on an IV Zofran and started on IV antibiotics after cultures. She started on Levophed drip after her blood pressure would not elevate. Cardiology has been consulted to assist with evaluation and management since she has a defibrillator and nonischemic heart disease. PAST MEDICAL HISTORY 1. Nonischemic cardiomyopathy, has an AICD. 2. In 04/2016, 2D echo with LVEF of 30% to 35% with impaired LV relaxation, no significant valvular disease. 3. In 07/2015 cardiac cath showed LVEF of 30% to 35%, normal coronaries. 4. History of cardiac arrest back in 2014, EP study revealed easily inducible ventricular tachycardia, she has an AICD. 5. Hypertension. 6. Diabetes mellitus type 2. Unit #: [id number] #: [id number] Patient: SONIA SWAIN 7. Hyperlipidemia. 8. Chronic kidney disease. 9. Discharged on 12/24/2016 from this facility with hypoxic respiratory failure, exacerbation of COPD, toxic metabolic encephalopathy. 10. Chronic kidney disease. 11. Anxiety and depression. 12. Active nicotine abuse. PAST SURGICAL HISTORY 1. AICD implantation in 07/2015. 2. Cholecystectomy. 3. Tubal ligation. 4. Right knee surgery. 5. Colon biopsy. 6. Hysterectomy. HOME MEDICATIONS Klonopin 0.5 mg p.o. b.i.d., Seroquel 100 mg p.o. at bedtime, cetirizine 10 mg p.o. daily for allergies, Celexa 20 mg p.o. daily, Lipitor 20 mg p.o. daily, Ventolin 2 puffs inhalation every 4 hours p.r.n., Symbicort 2 inhalations b.i.d., lisinopril 10 mg p.o. daily, acetaminophen 650 mg every 4 hours, hydralazine 25 mg p.o. every 6 hours, famotidine 20 mg p.o. daily, carvedilol 25 mg p.o. daily, MAGnesium-Oxide 800 mg p.o. daily, clonidine 0.2 mg p.o. t.i.d., Levemir 7 units subcu at bedtime, nicotine patch 21 mg daily, hydrochlorothiazide 25 mg p.o. daily, hydrocodone and acetaminophen 5/325 one tablet p.o. every 8 hours p.r.n., calcium carbonate 500 mg p.o. b.i.d.; calcitriol 0.25 mcg p.o. daily. ALLERGIES 1. Penicillin. 2. Sulfonamides. 3. Codeine. SOCIAL HISTORY The patient currently smokes. She smokes a half to a pack of cigarettes a day. No alcohol or illicit drug abuse at the present time, but she does have a history of polysubstance abuse in the past. FAMILY HISTORY No indication of any coronary artery disease in any of the family members. REVIEW OF SYSTEMS See details in HPI. PHYSICAL EXAMINATION GENERAL: Ms. Swain is a 56-year-old white female, in no acute respiratory distress. VITAL SIGNS: Currently blood pressure is 119/61, heart rate 74, respirations 18, temperature 99.0, O2 saturations 97% on 2 L. NECK: Trachea midline. No thyromegaly or lymphadenopathy. Normal carotid upstrokes. No jugular venous distention. HEART: S1, S2. Regular rate and rhythm. No clicks, murmurs, or rubs. LUNGS: Very diminished. ABDOMEN: Obese, soft, nontender. EXTREMITIES: Pedal pulses are palpable. Trace of pedal edema. DIAGNOSTIC STUDIES LABORATORY RESULTS: ABGs; pH of 7.372, pCO2 of 31.0, PO2 of 65.8, O2 Unit #: [id number] #: [id number] Patient: SONIA SWAIN saturations 91.8. Glucose is 95, BUN 30, creatinine 2.9, eGFR 17.5, sodium 137, potassium 4.0, chloride 104, CO2 of 19, calcium 6.7, total protein 8.9, albumin 5.1. Bilirubin total 0.8, AST 30, ALT 25, alkaline phosphatase is 99. Lipase is 31. Lactic acid on admission was 4.2 and 3.7, today is 2.0. Acetaminophen level less than 10. Salicylate level less than 4.0. Alcohol level is less than 5. INR is pending. Initial cardiac enzymes; CK-MB is less than 1.0, troponin less than 0.05. CK-MB is less than 1.0, troponin less than 0.05. Today's cardiac enzymes, her troponin is less than 0.03. WBCs 11.9, hemoglobin 11.8, hematocrit 36.2, and platelets 184. Legionella and strep pneumo are pending. Urine tox screen is positive for benzodiazepines. Urinalysis shows 2+ leukocyte esterase, 1+ protein, 0.2 urobilinogen, and 5 to 10 rbc's, wbc's 25 to 50. IMAGING STUDIES: Chest x-ray shows probable small amount of right basilar atelectasis. No pneumothorax. CT of abdomen and pelvis, no clear acute findings. Ultrasound of bilateral kidneys are negative. CARDIOVASCULAR STUDIES: EKG shows sinus tachycardia with ventricular rate 118 beats per minute, occasional premature atrial contraction, nonspecific ST-T wave abnormalities in the anterolateral leads. IMPRESSION 1. Acute exacerbation of chronic obstructive pulmonary disease, questionable pneumonia. 2. Questionable sepsis. 3. Hypotension. 4. Nausea, vomiting, diarrhea, and abdominal pain. 5. History of nonischemic cardiomyopathy, left ventricular ejection fraction of 30% to 35% on last echo in 04/2016. 6. Automatic implantable cardioverter-defibrillator. 7. Acute on chronic kidney disease. 8. History of normal coronaries on cardiac cath in 07/2015. 9. History of cardiac arrest in 2014 due to ventricular tachycardia, has automatic implantable cardioverter-defibrillator. 10. History of diabetes mellitus. 11. Hypertension. 12. Chronic obstructive pulmonary disease. 13. Anxiety and depression. 14. Recent admission for exacerbation of chronic obstructive pulmonary disease and toxic metabolic encephalopathy, discharged on 12/24/2016. 15. Active nicotine abuse. PLAN 1. Cardiology consult to assist with evaluation and management. Likely, the patient's hypotension secondary to volume loss of the vomiting and diarrhea. The patient is on IV fluids, which will be continued. The patient is on Levophed to maintain blood pressure greater than 90 mmHg. After the patient is adequately hydrated, we will try to wean off the Levophed just to keep systolic blood pressure greater than [address] Sandoval of pulmonology and sleeping car conductor are changing her antibiotics. Unit #: [id number] #: [id number] Patient: SONIA SWAIN He feels like maybe she could have an atypical infection versus inflammatory. Check for Streptococcus and Legionella disease. The patient to have midodrine 10 mg p.o. t.i.d. to help her hypotension. 3. Voiding urinalysis to see if she has UTI which may be causing her symptoms. 4. Encourage the patient to completely quit smoking. Smoking cessation information provided to the patient. 5. If the patient's blood pressure does not stay up, may need a short course of IV dopamine or dobutamine. Currently, there are no signs or symptoms of unstable angina or acute congestive heart failure. Cardiac enzymes are negative. 6. Further recommendations. 7. We will order for stool for Clostridium diff, since she has recently been on some antibiotics and has the diarrhea. 8. Further recommendations pending per Dr. Norton. Thank you very much for allowing us to assist in her care. Dictated by... Meera BarkerPTajRJovani for Sal Barth/karlee TD: 01/14/2017 03:59 JOB #: [id number] CONSULTATION REPORT Page 1 of 1 X Arely Moody RABBIT DRESSER X CONSULTATION REPORT
--- NOTE | ~2017-01-12 | DS ---
Unit #: [id number] #: [id number] Patient: SONIA CHRISTIANSON [id number] [address] [place], [place] [address] [id number] I MR#: [id number] NAME: SONIA CHRISTIANSON ROOM: 560 Age: 56 Sex: F Admission Date: 01/12/2017 : 1960 Discharge Date: 01/17/2017 Attending Physician: Rodriguez Cordova M.D. Primary Care Physician: Mil Dial M.D. DISCHARGE SUMMARY FINAL DIAGNOSES 1. Septic shock, resolved. 2. Pneumonia. 3. Acute kidney injury. 4. Hypotension, which is improved. 5. Congestive heart failure with left ventricular ejection fraction of 30%-35%. 6. Normal coronaries in 07/2015. 7. Atrial implantable cardioverter defibrillator for V tac. 8. History of chronic kidney disease. 9. Diabetes mellitus. 10. Chronic obstructive pulmonary disease. 11. Nicotine abuse. 12. Hypokalemia. 13. Hypomagnesemia which is improved. 14. C-diff colitis. DISCHARGE MEDICATIONS 1. Ventolin inhaler q.4 h. p.r.n. 2. Symbicort continue home dose. 3. Tylenol 650 mg q.4 h. p.r.n. 4. Calcium 500 mg b.i.d. 5. Magnesium oxide 800 mg daily. 6. Celexa 20 mg daily. 7. Cetirizine daily. 8. Seroquel 100 mg at nighttime. 9. Nicotine patch 14 mg daily. 10. Klonopin 0.4 mg b.i.d. 11. Coreg 12.5 mg p.o. b.i.d. (please note dose of Coreg has been decreased from 25 mg to 12.5 mg b.i.d.). 12. Discontinue hydrochlorothiazide. 13. Continue Lipitor 20 mg daily. 14. Clonidine 0.1 mg t.i.d. (Please note dose of clonidine has been decreased from 0.2 to 0.1 mg. 15. Hydralazine 25 mg q.6 h. 16. Discontinue lisinopril. 17. Levemir 7 units subcutaneous daily. 18. Pepcid 20 mg daily. 19. Florastor 250 mg daily. 20. Hydrocodone continue home dose. 21. Doxycycline 100 mg p.o. b.i.d. until tomorrow. 22. Isosorbide 5 mg b.i.d. 23. Calcitrol 0.5 mcg daily. Unit #: [id number] #: [id number] Patient: SONIA CHRISTIANSON CONSULTANTS Dr. Vick from cardiology services. Dr. Sandoval from pulmonary services. Dr. Sylvia Giang from nephrology services. HOSPITAL COURSE Ms. Busch is a 56-year-old female who was admitted to the hospital with diarrhea, abdominal pain and vomiting. The patient was found to be in sepsis. The patient had severe hypotension with systolic blood pressure in the 60s. Elevated lactic acid of 4. The patient was admitted to the ICU with the diagnosis of septic shock, hypotension, abdominal pain, acute on chronic respiratory failure, possibly pneumonia. The patient was admitted to the ICU setting. Pressors were started. Dr. Sandoval was consulted. IV antibiotics were started. Dr. Vick from cardiology services was also consulted. Home medications were adjusted. The patient was also found to have c-diff colitis. The patient has been started on Flagyl. She received Flagyl and vancomycin p.o. for the last few days. We are going to discharge on Flagyl p.o. The patient also was found to be in acute kidney failure on chronic kidney disease. The patient's SPEEDY inhibitors have been discontinued at this time. Kidney functions have improved. The patient is being discharged home on the above medications. PHYSICAL EXAMINATION VITALS: At discharge blood pressure is 144/84, respiratory rate 18, pulse 66, temperature 98.0, oxygen saturation 94%. CHEST: Good breath sounds. HEART: S1 and S2 positive. Regular rhythm. ABDOMEN: Soft. Edema is present. DISCHARGE DISPOSITION The patient is being discharged home in stable condition. DISCHARGE INSTRUCTIONS 1. Medications as per medication reconciliation. 2. Follow up with primary care physician in one week. 3. Follow up with cardiology, Dr. Tolliver, on 05/02/2017 at 10 a.m. 4. Lab workup done in a week would be BMP, magnesium level. Dictated by... Sal Reid TD: 01/18/2017 09:50 JOB #: [id number] Unit #: [id number] #: [id number] Patient: SONIA CHRISTIANSON DISCHARGE SUMMARY Page 1 of 1 X Tracy Quiroz MD X DISCHARGE SUMMARY
--- NOTE | ~2017-01-12 | CR72 ---
[facility] A Service of [facility] RADIOLOGY TEXT RESULTS PATIENT: SONIA CHRISTIANSON LOCATION: [facility] CICCU2-10 : 62 UNIT #: [id number] AGE: [address]: Rodriguez Cordova MD SEX: F ORDER DR: [id number] [facility] [address] [facility]. [place], [place] [address] [id number] MR#: [id number] Acc #: [id number] NAME: SONIA CHRISTIANSON : 1960 SEX: F STUDY DATE/TIME: 01/12/2017 16:18 UNIT: [facility] ROOM: STUDY DESCRIPTION: CR Chest Single View Portable Attending Physician: Jason Rizvi D.O. Ordering Physician: Jason Rizvi D.O. Primary Care Physician: Mil Dial M.D. MEDICAL IMAGING REPORT This report is preliminary unless electronic signature is present EXAM Portable chest HISTORY 56-year-old female nausea vomiting, hypotension, onset today. COMPARISON 12/21/2016 FINDINGS Portable view of the chest demonstrates a pulmonary hyperinflation. No infiltrates or effusions. Heart and mediastinum unremarkable. Pacemaker defibrillator noted over the left chest with atrial and ventricular leads in expected position. Probable small amount of right basilar atelectasis or scarring. No pneumothorax. Dictated by... Joe Ridley M.D. THIS IS AN ELECTRONICALLY VERIFIED REPORT Joe Ridley M.D. at 01/13/2017 5:29 PM CHRISTINA/ben TD: 01/12/2017 18:12 JOB #: [id number] MEDICAL IMAGING REPORT Page 1 of 1 COPY
--- NOTE | ~2017-01-12 | CO ---
Unit #: [id number] #: [id number] Patient: SONIA CHRISTIANSON [id number] [address] [address] [id number] I MR#: [id number] NAME: SONIA CHRISTIANSON ROOM: [facility] Age: 56 Sex: F Admission Date: 01/12/2017 : 1960 Attending Physician: Rodriguez Cordova M.D. Primary Care Physician: Mil Dial M.D. Consultation Date: 01/13/2017 CONSULTATION REPORT REASON FOR CONSULT Acute renal failure. HPI Patient is a 56-year-old, white female with history of normal kidney function at baseline, but with multiple episodes of acute renal failure usually relating to her infectious processes. Patient was admitted again for recurrent pneumonia and, also, possible urinary tract infection. She was transferred to ICU with hypotension. On admission, her creatinine was elevated at 1.7 and now has increased to 2.9. She is without complaints. Denies any shortness of breath. PAST MEDICAL HISTORY Significant for acute renal failure, recurrent pneumonia, cardiomyopathy, hypertension, and diabetes. SOCIAL HISTORY Significant for tobacco abuse. FAMILY HISTORY Noncontributory. ALLERGIES Includes penicillin, sulfa, Amaryl, and codeine. MEDICATIONS Current medications include: 1. Azactam 1 g q.12 hours. 2. ProAmatine 10 mg t.i.d. 3. Zithromax 500 IV every day. 4. Levophed. 5. Levemir. 6. Lipitor 20 q.h.s. 7. Tums 500 b.i.d. 8. Tylenol 650 q.4 p.r.n. 9. Claritin 10 every day. 10. Pulmicort 0.5 b.i.d. 11. Rocaltrol 0.25 every day. 12. Magnesium oxide 800 every day. REVIEW OF SYSTEMS Twelve-point review of systems completely negative for everything, except positive for diarrhea. Unit #: [id number] #: [id number] Patient: SONIA CHRISTIANSON PHYSICAL EXAMINATION VITAL SIGNS: Blood pressure is 111/72, heart rate is 88, respirations 18, and temperature is 98.1. GENERAL: She is a well nourished, white female. HEENT: Shows no JVD and no LAD. CARDIOVASCULAR: Regular rate and rhythm without murmurs, rubs, or gallops. LUNGS: Clear to auscultation bilaterally. ABDOMEN: Soft, nontender, and nondistended. EXTREMITIES: Showed no clubbing, cyanosis, or edema. NEURO: Grossly intact. She is alert and oriented x3. DIAGNOSTIC STUDIES LABORATORY: Labs show a sodium of 137, potassium 4, chloride 104, bicarb 19, BUN 30, creatinine 2.9, and calcium 6.7. White count is 11.9, hemoglobin is 11.8, and platelets are 184. Her UA is positive with WBCs. Her blood and urine cultures are pending. IMAGING: Renal ultrasound is negative. ASSESSMENT AND PLAN 1. Acute renal failure, most likely secondary to ATN from hypotension and septic shock. She is currently in the ICU on IV Levophed. She appears volume depleted on exam. Will add IV fluids with bicarb and continue to monitor. Medications were reviewed. No changes to her meds at this time. 2. Septic shock, most likely secondary to pneumonia. Cultures currently pending. She is on multiple IV antibiotics. Will continue to follow. 3. Metabolic acidosis. Will add bicarb to her IV fluids and follow. 4. Hypocalcemia. Currently, she is on calcium and vitamin D at home. Will check her vitamin D levels. We will continue her oral calcium. Will add IV calcium gluconate as well and continue to monitor. 5. Hypomagnesemia. Currently receiving p.o. magnesium, which may contribute to diarrhea. Will check her magnesium levels and replace IV if necessary. I thank Dr. Cordova for consulting us on this patient. We will continue to follow closely. Dictated by... Sylvia Giang M.D. Echo TD: 01/14/2017 08:48 JOB #: [id number] CONSULTATION REPORT Page 1 of 1 X Sylvia Giang MD CONSULTATION REPORT
[2017-01-12 15:44] LABS: ARTERIAL BLD GAS O2 SATURATION 91.8 % (90.0-100.0); ARTERIAL BLOOD GAS CARBOXY HB 1.1 %sat (0.0-9.0); ARTERIAL BLOOD GAS MET HB 0.5 %sat (0.0-2.0); ARTERIAL BLOOD GAS pH 7.372 (7.350-7.450)
[2017-01-12 15:45] LABS: ARTERIAL BLOOD GAS ALLEN TEST POS; ARTERIAL BLOOD GAS ART SITE LEFT RADIAL; ARTERIAL BLOOD GAS PO2 65.8 mmHg (80.0-100); ARTERIAL DRAW? YES
[2017-01-12 16:15] LABS: POC - CKMB <1.0 ng/mL (0.0-7.9); POC - TROPONIN <0.05 ng/mL (<=0.05)
[~2017-01-12 16:37] MED LIST changes: +CALCITRIOL0.25 MC1 PO; +CALCIUM CARBON500 M2 PO; +CLONIDINE1 EAC1 PO; +LEVAQUIN750 M1 PO; +LEVEMIR100 UNITS/ SUBQ; +NICOTINE TRANSD14 MG TOP; +UROMAG84.5 MG PO
[2017-01-12 16:41] LABS: ALBUMIN SERUM 5.1 g/dL (3.5-5.0); ALKALINE PHOSPHATASE 99 U/L (32-92); ALT (SGPT) 25 U/L (10-40); AST (SGOT) 30 U/L (10-42); BILIRUBIN, DIRECT 0.1 mg/dL (0.0-0.2); BILIRUBIN,INDIRECT 0.7 mg/dL (0.0-0.9); BILIRUBIN,TOTAL 0.8 mg/dL (0.2-2.0); BLOOD UREA NITROGEN 17 mg/dL (9-23); CALCIUM SERUM 9.6 mg/dL (8.4-10.2); CARBON DIOXIDE 20 mmol/L (22-31); CHLORIDE 100 mmol/L (100-111); CREATININE SERUM 1.7 mg/dL (0.6-1.4); GLOM FILT RATE Estimated 33.4 mL/min (>60); GLUCOSE FASTING 216 mg/dL (70-110); LIPASE 31 U/L (22-51); POTASSIUM 3.7 mmol/L (3.5-5.1); PROTEIN TOTAL SERUM 8.9 g/dL (6.0-8.3); SALICYLATE <4.0 mg/dL; SODIUM 138 mmol/L (135-145)
[2017-01-12 16:42] LABS: ACETAMINOPHEN <10 ug/mL; ALCOHOL BLOOD <5 mg/dL ([, 0])
[2017-01-12 16:49] LABS: BASOPHIL# 0.1 X10e3 (0-0.3); BASOPHIL% 0.3 % (0-2.5); EOSINOPHIL# 0.2 X10e3 (0-0.7); EOSINOPHIL% 0.9 % (0.0-7.0); HEMATOCRIT 46.1 % (35.0-45.0); HEMOGLOBIN 15.1 gm/dL (12.0-16.0); LYMPHOCYTE# 0.8 X10e3 (1.0-3.5); LYMPHOCYTE% 4.4 % (17.0-45.0); MEAN CELL VOLUME 86.2 FL (83-96); MEAN CORPUSCULAR HEMOGLOBIN 28.1 PG (28-34); MEAN CORPUSCULAR HGB CONC 32.6 g/dL (30-36); MEAN PLATELET VOLUME 8.4 FL (6.5-11.5); MONOCYTE% 5.5 % (3.0-12.0); NEUTROPHIL# 15.5 X10e3 (1.5-7.1); NEUTROPHIL% 88.9 % (40-75); PLATELET COUNT 232 X10e3 (140-420); RED BLOOD COUNT 5.35 X10e (3.90-5.30); RED CELL DISTRIBUTION WIDTH 15.8 % (11.0-15.5); WHITE BLOOD COUNT 17.5 X10e3 (4.0-10.5)
[2017-01-12 16:50] LABS: DIFF IND YES
[2017-01-12 17:07] LABS: PLATELET ESTIMATE NORMAL (NORMAL)
[2017-01-12 17:09] LABS: RBC NORMAL YES; TOXIC GRANULATION SL
[2017-01-12 19:45] LABS: POC - CKMB <1.0 ng/mL (0.0-7.9); POC - TROPONIN <0.05 ng/mL (<=0.05)
[2017-01-13 05:31] LABS: BASOPHIL% 0.2 % (0-2.5); EOSINOPHIL# 0.3 X10e3 (0-0.7); EOSINOPHIL% 2.2 % (0.0-7.0); HEMATOCRIT 36.2 % (35.0-45.0); LYMPHOCYTE# 1.1 X10e3 (1.0-3.5); LYMPHOCYTE% 9.1 % (17.0-45.0); MEAN CELL VOLUME 86.5 FL (83-96); MEAN CORPUSCULAR HEMOGLOBIN 28.2 PG (28-34); MEAN CORPUSCULAR HGB CONC 32.6 g/dL (30-36); MEAN PLATELET VOLUME 8.4 FL (6.5-11.5); MONOCYTE# 0.7 X10e3 (0-1.0); MONOCYTE% 5.6 % (3.0-12.0); NEUTROPHIL# 9.8 X10e3 (1.5-7.1); NEUTROPHIL% 82.9 % (40-75); PLATELET COUNT 184 X10e3 (140-420); RED BLOOD COUNT 4.19 X10e (3.90-5.30); RED CELL DISTRIBUTION WIDTH 15.8 % (11.0-15.5); WHITE BLOOD COUNT 11.9 X10e3 (4.0-10.5)
[2017-01-13 06:00] LABS: HEMOGLOBIN 11.8 gm/dL (12.0-16.0)
[2017-01-13 06:03] LABS: DIFF IND NO
[2017-01-13 06:41] LABS: BUN/CREATININE RATIO 10.34; CREATININE SERUM 2.9 mg/dL (0.6-1.4); GLOM FILT RATE Estimated 17.5 mL/min (>60)
[2017-01-13 06:42] LABS: CALCIUM SERUM 6.7 mg/dL (8.4-10.2)
[2017-01-13 10:18] LABS: URINE SOURCE CLEAN CATCH
[2017-01-13 10:32] LABS: URINE APPEARANCE CLOUDY; URINE BILIRUBIN NEG (NEG); URINE BLOOD TRACE (NEG); URINE COLOR YELLOW; URINE GLUCOSE NEG (NEG); URINE KETONE NEG (NEG); URINE LEUKOCYTE ESTERASE 2+ (NEG); URINE NITRATE NEG (NEG); URINE PROTEIN 1+ (NEG); URINE SPECIFIC GRAVITY 1.015 (1.003-1.035); URINE UROBILINOGEN 0.2 MG/DL (NEG)
[2017-01-13 10:35] LABS: CULTURE INDICATED? YES; URINE BACTERIA AUWI NEG (NEGATIVE); URINE SQUAMOUS EPITHELIAL CELL MOD /[HPF]; UWBCS1 AUWI 25-50 (0-5)
[2017-01-13 10:46] LABS: URINE TRANSITIONAL EPI CELLS FEW /[HPF]
[2017-01-13 10:47] LABS: URINE MUCUS PRESENT
[2017-01-13 11:22] LABS: AMPHETAMINE NEG (NEG); BARBITURATES NEG (NEG); BENZODIAZEPINES POS (NEG); COCAINE NEG (NEG); MARIJUANA NEG (NEG); OPIATES NEG (NEG); TRICYCLIC ANTIDEPRESSANTS NEG (NEG); U METHADONE NEG (NEG)
[2017-01-13 14:31] LABS: LEGIONELLA AG URINE NEG (NEG)
[2017-01-14 06:58] LABS: BUN/CREATININE RATIO 19.33; CALCIUM SERUM 6.7 mg/dL (8.4-10.2); CREATININE SERUM 1.5 mg/dL (0.6-1.4); GLOM FILT RATE Estimated 38.8 mL/min (>60); MAGNESIUM 1.1 mg/dL (1.6-3.0); POTASSIUM 3.1 mmol/L (3.5-5.1)
[2017-01-14 07:52] LABS: BASOPHIL% 0.4 % (0-2.5); EOSINOPHIL# 0.3 X10e3 (0-0.7); EOSINOPHIL% 5.5 % (0.0-7.0); HEMATOCRIT 30.1 % (35.0-45.0); HEMOGLOBIN 10.2 gm/dL (12.0-16.0); LYMPHOCYTE# 1.8 X10e3 (1.0-3.5); LYMPHOCYTE% 29.2 % (17.0-45.0); MEAN CELL VOLUME 84.5 FL (83-96); MEAN CORPUSCULAR HEMOGLOBIN 28.6 PG (28-34); MEAN CORPUSCULAR HGB CONC 33.9 g/dL (30-36); MONOCYTE# 0.5 X10e3 (0-1.0); MONOCYTE% 8.7 % (3.0-12.0); NEUTROPHIL# 3.5 X10e3 (1.5-7.1); NEUTROPHIL% 56.2 % (40-75); PLATELET COUNT 142 X10e3 (140-420); RED BLOOD COUNT 3.56 X10e (3.90-5.30); RED CELL DISTRIBUTION WIDTH 15.9 % (11.0-15.5); WHITE BLOOD COUNT 6.1 X10e3 (4.0-10.5)
[2017-01-14 07:57] LABS: DIFF IND NO
[2017-01-14 17:35] LABS: CALCIUM SERUM 7.2 mg/dL (8.4-10.2); MAGNESIUM 1.9 mg/dL (1.6-3.0); POTASSIUM 3.3 mmol/L (3.5-5.1)
[2017-01-15 22:07] LABS: BUN/CREATININE RATIO 18.75; CREATININE SERUM 0.8 mg/dL (0.6-1.4); GLOM FILT RATE Estimated 83.1 mL/min (>60); MAGNESIUM 1.5 mg/dL (1.6-3.0); POTASSIUM 3.5 mmol/L (3.5-5.1)
[2017-01-16 05:55] LABS: HEMATOCRIT 29.1 % (35.0-45.0); HEMOGLOBIN 9.8 gm/dL (12.0-16.0); MEAN CELL VOLUME 84.5 FL (83-96); MEAN CORPUSCULAR HEMOGLOBIN 28.3 PG (28-34); MEAN CORPUSCULAR HGB CONC 33.5 g/dL (30-36); MEAN PLATELET VOLUME 7.6 FL (6.5-11.5); RED BLOOD COUNT 3.45 X10e (3.90-5.30); RED CELL DISTRIBUTION WIDTH 15.5 % (11.0-15.5); WHITE BLOOD COUNT 5.2 X10e3 (4.0-10.5)
[2017-01-16 06:39] LABS: BUN/CREATININE RATIO 18.57; CREATININE SERUM 0.7 mg/dL (0.6-1.4); GLOM FILT RATE Estimated 97.5 mL/min (>60); MAGNESIUM 1.6 mg/dL (1.6-3.0); POTASSIUM 3.6 mmol/L (3.5-5.1)
[2017-01-16 15:29] LABS: UPE RAND ALPHA1 GLOB 11 % (()); UPE RAND PROT/CREAT 979 (21-161); UPE RANDOM ALB (PNL) 24 % (()); UPE RANDOM ALPHA 2 GLOB 15 % (()); UPE RANDOM BETA GLOB 17 % (()); UPE RANDOM CREATININE 135.9 mg/dL (20-320); UPE RANDOM GAMMA GLOB 34 % (()); UPE RANDOM TOTAL PROTEIN (PNL) 133 mg/dL (5-24)
[2017-01-17 06:15] LABS: BUN/CREATININE RATIO 16.25; CREATININE SERUM 0.8 mg/dL (0.6-1.4); GLOM FILT RATE Estimated 83.1 mL/min (>60); MAGNESIUM 1.6 mg/dL (1.6-3.0); POTASSIUM 3.6 mmol/L (3.5-5.1)
[2017-01-17] MEDS ORDERED: FLAGYL250 M1 PO (16:02)
[2017-01-17] MEDS ORDERED: DIGESTIVE PROB250 MG PO (16:03)
[2017-01-17] MEDS ORDERED: DOXYCYCLINE PO (16:06)
[2017-01-17] MEDS ORDERED: (NONE)1 CA1 PO (16:07)
[2017-01-17] MEDS ORDERED: ISOSORBIDE DINIT5 MG PO (16:11)
[2017-01-17] MEDS ORDERED: CALCIUM CARBON500 M2 PO (17:04)
[2017-01-22 16:45] LABS: CALCIUM (PTHINTACT) 6.7 mg/dL (8.6-10.4)
== END 2017-01-17 18:24 | disposition home or self-care (01) | DRG 871 ==
LOC: CED 16:37 → CEDOF 19:59 → CICCU2 23:55 → C5B 01-15 00:58
PROVIDERS: Emergency Medicine; Hospitalist; Internal Medicine Cardiovascular Disease; Internal Medicine Nephrology; Internal Medicine Pulmonary Disease
DX: A41.9 Sepsis, unspecified organism (principal); J18.9 Pneumonia, unspecified organism; J96.20 Acute and chronic respiratory failure, unspecified whether with hypoxia or hypercapnia; N17.0 Acute kidney failure with tubular necrosis; R65.21 Severe sepsis with septic shock; A04.7 Enterocolitis due to Clostridium difficile; J44.0 Chronic obstructive pulmonary disease with (acute) lower respiratory infection; J44.1 Chronic obstructive pulmonary disease with (acute) exacerbation; E87.2 Acidosis; Z95.810 Presence of automatic (implantable) cardiac defibrillator; I12.9 Hypertensive chronic kidney disease with stage 1 through stage 4 chronic kidney disease, or unspecified chronic kidney disease; E11.22 Type 2 diabetes mellitus with diabetic chronic kidney disease; N18.9 Chronic kidney disease, unspecified; F17.210 Nicotine dependence, cigarettes, uncomplicated; E87.6 Hypokalemia; E83.42 Hypomagnesemia; Z88.0 Allergy status to penicillin; Z88.2 Allergy status to sulfonamides; Z88.5 Allergy status to narcotic agent; F41.8 Other specified anxiety disorders; R34 Anuria and oliguria; E83.51 Hypocalcemia; Y95 Nosocomial condition
CPT/HCPCS: 36600; 51702; 71010; 71250; 74176; 76770; 80048; 80076; 80200; 80202; 80307; 81003; 82306; 82310; 82553; 82570; 82652; 82803; 82947; 83605; 83690; 83735; 83970; 84100; 84132; 84156; 84166; 84484; 85025; 85027; 87040; 87086; 87449; 87493; 87899; 93005; 94640; 94760; 96365; 96366; 96375; 97161; 97165; 99291; G0480; J0456; J0610; J2405; J3260; J3370; J3475

== ENCOUNTER 2017-03-19 18:56 | Inpatient (IN) | payer OTHER ==
--- NOTE | ~2017-03-19 | CR72 ---
[facility] A Service of [facility] / [facility] RADIOLOGY TEXT RESULTS PATIENT: SONIA CHRISTIANSON LOCATION: [address] : [birth year] UNIT #: [id number] AGE: [address]: Tracy Quiroz MD SEX: F ORDER DR: [id number] [facility] [address] [facility]. [place], [place] [address] [id number] I MR#: [id number] #: [id number] NAME: SONIA CHRISTIANSON : 1960 SEX: F STUDY DATE/TIME: 03/19/2017 19:44 UNIT: CEDOF ROOM: 19472 STUDY DESCRIPTION: CR Chest Single View Portable Attending Physician: Tracy Quiroz M.D. Ordering Physician: Del Kapoor M.D. Primary Care Physician: Mil Dial M.D. MEDICAL IMAGING REPORT This report is preliminary unless electronic signature is present EXAM Chest portable 03/19/17 at 19:44 hours HISTORY A 56-year-old woman complaining of acute onset of shortness of air with congestion for hours prior to admission. COMPARISON Chest CT 01/13/2017 FINDINGS Portable upright chest demonstrates normal heart size. Aorta and hilar contours are normal. There is a dual lead left subclavian transvenous pacer/defibrillator with leads over the right atrium and right ventricle unchanged. The pulmonary vascularity is normal. The lungs are clear, and there are no effusions. IMPRESSION Normal heart size with stable dual lead pacer/AICD device. The lungs are clear, and there are no effusions. Dictated by... Lacy Posada M.D. THIS IS AN ELECTRONICALLY VERIFIED REPORT Lacy Posada M.D. at 03/21/2017 9:33 AM ELVIA/chucky TD: 03/20/2017 11:07 JOB #: [id number] MEDICAL IMAGING REPORT [facility] A Service of [facility] RADIOLOGY TEXT RESULTS PATIENT: SONIA CHRISTIANSON LOCATION: [address] : [birth year] UNIT #: [id number] AGE: [address]: Tracy Quiroz MD SEX: F ORDER DR: Page 1 of 1 COPY
--- NOTE | ~2017-03-19 | CO ---
Unit #: [id number] #: [id number] Patient: SONIA CHRISTIANSON [id number] [address] [place], [place] [address] [id number] MR#: [id number] NAME: SONIA CHRISTIANSON ROOM: [facility] Age: 56 Sex: F Admission Date: 03/19/2017 : 1960 Attending Physician: Tracy Quiroz M.D. Primary Care Physician: Mil Dial M.D. Consultation Date: 03/20/2017 CONSULTATION REPORT REASON FOR CONSULTATION Sepsis with history of Clostridium difficile. HISTORY OF PRESENT ILLNESS This is a 56-year-old white female with history of multiple medical problems, who was admitted with sudden onset of explosive diarrhea, vomiting, and colicky abdominal pain. In the ER, she was found to have hypotension with systolic blood pressure of 65, she was given fluid boluses and was transferred to the ICU. Flagyl was started intravenously. ID was consulted for further evaluation. The patient is currently stable. She was sleeping when I saw her, but upon awakening she started complaining of severe pain. No hypertension has been documented in the last 8 hours or so. She has not been febrile. CT scan shows multiple air-fluid levels in the colon, but there is no obvious obstruction or colitis. Her chest x-ray is clear. Urinalysis shows pyuria. The patient does not have any significant urinary symptoms, however. Her Clostridium difficile test is negative, but wbc's are present in the stool specimen. The patient currently appears fine, no obvious distress was noted. PAST MEDICAL HISTORY Congestive heart failure, hypertension, diabetes, bronchitis, COPD, kidney stone, stomach ulcer, panic attacks, depression. She also has a history of Clostridium difficile in 01/2017. PAST SURGICAL HISTORY Gallbladder, pacemaker implantation, tubal ligation, right knee surgery, colon biopsy, hysterectomy, and defibrillator. HOME MEDICATIONS Celexa, lisinopril, Prilosec, Toprol, and insulin. ALLERGIES Penicillin which causes rash, but she has taken Ceclor in the past without any problems. SYSTEMIC REVIEW As above. Epidemiologic history was negative. PHYSICAL EXAMINATION GENERAL: Reveals a young white female, who is awake and alert, in no acute distress at this time. VITAL SIGNS: Temperature 97.6, no fever was seen, pulse rate 85 there was no significant tachycardia, heart rate 17, blood pressure 117/73. The lowest blood pressure was 65/37 yesterday at 7 p.m. Unit #: [id number] #: [id number] Patient: SONIA CHRISTIANSON NECK: Absolutely supple. There are no signs of meningeal irritation. EXTREMITIES: She has no edema. No rash. LUNGS: Clear to percussion and auscultation. HEART: Sounds normal. There are no murmurs. ABDOMEN: Soft and nontender. There is minimum tenderness without any rebound or guarding. Bowel sounds normal. Fecal management system is in place. There is watery diarrhea in the collection bag. NEUROLOGIC: Nonfocal. DIAGNOSTIC STUDIES IMAGING STUDIES: CT scan of the abdomen shows multiple air-fluid levels throughout the colon to the level of the rectum consistent with diarrhea history, no bowel obstruction was noted. There is nonobstructive calculus in left lower pole of the kidney with diffuse fatty infiltration of the liver. Chest x-ray shows normal heart sounds, lungs are clear. Chest x-ray showed normal heart silhouette. Chest x-ray is clear. LABORATORY RESULTS: Fecal wbc's are present. Clostridium difficile toxin is negative. Urinalysis showed 3+ leukocyte esterase, 3+ blood, 25 to 50 rbc's, 10 to 25 wbc's, 3+ bacteria. Sodium 140, potassium 4.5, chloride 112, CO2 of 21, BUN 19, creatinine 1. White count is 9, hemoglobin 10.8, platelets 171, neutrophils 74, lymphocytes 15. Lactic acid 1.8. IMPRESSION Main issue appears to be dehydration due to severe diarrhea and vomiting which could be the result of acute viral gastroenteritis. However, given the history of recent Clostridium difficile, relapse of Clostridium difficile is a possibility. Other possibility may include evolving sepsis or perhaps urinary tract infection given grossly abnormal urine. RECOMMENDATIONS Agree with Flagyl. I will add ceftriaxone to cover for possible UTI and sepsis. We will also check a procalcitonin level. I will ask nursing staff to call me immediately if there is any change in patient's clinical status including positive blood cultures. The patient is allergic to penicillin, which causes rash, but the patient have taken Ceclor without any problems in the past. Thank you Dr. Kerr for asking me to see this patient. We will follow along with you. Dictated by... Sal Sierra/karlee TD: 03/21/2017 06:26 JOB #: [id number] Unit #: [id number] #: [id number] Patient: SONIA CHRISTIANSON CONSULTATION REPORT Page 1 of 1 X Adam Davis MD X CONSULTATION REPORT
--- NOTE | ~2017-03-19 | CT4 ---
[facility] A Service of [facility] & [facility] RADIOLOGY TEXT RESULTS PATIENT: SONIA CHRISTIANSON LOCATION: [address] : [birth year] UNIT #: [id number] AGE: [address]: Tracy Quiroz MD SEX: F ORDER DR: [id number] [facility] [address] [place], [place] [address] [id number] I MR#: [id number] Acc #: [id number] NAME: SONIA CHRISTIANSON : 1960 SEX: F STUDY DATE/TIME: 03/20/2017 11:25 UNIT: [facility] ROOM: [facility] STUDY DESCRIPTION: CT Abd and Pelv Wo Cont Attending Physician: Tracy Quiroz M.D. Ordering Physician: Fredrick Kerr M.D. Primary Care Physician: Mil Dial M.D. MEDICAL IMAGING REPORT This report is preliminary unless electronic signature is present EXAM CT abdomen and pelvis without contrast HISTORY Nausea, vomiting and diarrhea since this morning. History of kidney stones, hypertension, diabetes, CHF, COPD. Post cholecystectomy, hysterectomy, pacemaker placement. COMMENTS CT abdomen and pelvis performed axial plane without contrast using urinary tract stone protocol. Lack of intravenous oral contrast media limits evaluation for pathology other than urinary tract calculus disease. This CT exam was performed with one or more of the following radiation dose reduction techniques: automatic exposure control, adjustment of mA and/or kV according to patient size, and iterative reconstruction. FINDINGS Evaluation of lung bases shows small amount of atelectasis and/or scarring. This is improving on comparison to prior. There is fatty infiltration of the liver diffusely which is new or worse when comparison is made to previous. Patient is post cholecystectomy. Partly seen is artifact from the patient's known pacemaker. Spleen unremarkable. There is some fatty infiltration of the pancreas. Adrenal glands unremarkable. There is a tiny 2 - 3 mm nonobstructing calculus left lower pole kidney. No intrarenal calculi on the right. Mild bilateral perinephric stranding. No hydronephrosis. Mild vascular calcifications present. There are calcifications anterior to the right psoas muscle, unchanged from prior study. These appear to be phleboliths within the right ovarian vein. They do not have the appearance of STS. [facility] A Service of [facility] RADIOLOGY TEXT RESULTS PATIENT: SONIA CHRISTIANSON LOCATION: [facility]2 CICCU2-07 : [birth year] UNIT #: [id number] AGE: [address]: Tracy Quiroz MD SEX: F ORDER DR: obstructing ureteral calculi. No bladder calculus is suspected. No ureteral calculus is suspected. Evaluation of the remainder of the pelvis shows post hysterectomy change. Small fat-containing inguinal hernias noted. There is fluid and distal bowel loops including the rectum consistent with diarrhea history. Air fluid is noted throughout the right and left colon. There does not appear to be obstruction, but the rectum is distended; and if there is concern for mass, correlation with direct visualization would be indicated. The appendix is radiographically normal. Small bowel loops are essentially unremarkable with occasional air-fluid levels but they are not distended and no transition point is seen. There is no free air. No drainable fluid collection is suspected on this study without IV or oral contrast media. Degenerative changes in the lumbar spine. IMPRESSION 1. Multiple air-fluid levels throughout the colon to the level of the rectum consistent with diarrhea history. No bowel obstruction is appreciated. If there is concern for low colonic obstruction, direct visualization would be indicated. 2. Nonobstructing calculus left lower pole kidney. No obstructing calculus is seen. There are what appear to be phleboliths along the right ovarian vein incidentally noted. No further evaluation of this finding is indicated. 3. There is the interval development of diffuse fatty infiltration of the liver. Please correlate clinically. 4. The patient is post cholecystectomy and hysterectomy. There are some vascular calcifications present. There is no free intraperitoneal air. Study is limited by the lack of IV and oral contrast media for evaluation for pathology other than urinary tract calculus disease. STAT * RESULT Dictated by... Nyla Agarwal M.D. THIS IS AN ELECTRONICALLY VERIFIED REPORT Nyla Agarwal M.D. at 03/20/2017 2:22 PM TEODORA/chucky TD: 03/20/2017 11:58 JOB #: [id number] MEDICAL IMAGING REPORT [facility]. [facility] A Service of [facility] & [facility] RADIOLOGY TEXT RESULTS PATIENT: SONIA CHRISTIANSON LOCATION: [address] : [birth year] UNIT #: [id number] AGE: [address]: Tracy Quiroz MD SEX: F ORDER DR: Page 1 of 1 COPY
--- NOTE | ~2017-03-19 | EKG ---
PATIENT: SONIA CHRISTIANSON UNIT #: [id number] Ventricular Rate: 102 BPM Atrial Rate: 102 BPM P-R Interval: 140 ms QRS Duration: 78 ms Q-T Interval: 334 ms QTC Calculation(Bezet): 435 ms P Beacon: 69 degrees Calculated R Beacon: -69 degrees Calculated T Beacon: 32 degrees Diagnosis Line: Sinus tachycardia Diagnosis Line: Left axis deviation Diagnosis Line: Abnormal ECG Diagnosis Line: When compared with ECG of 12-JAN-2017 15:32, Diagnosis Line: Premature atrial complexes are no longer Present Diagnosis Line: ST no longer depressed in Inferior leads Diagnosis Line: Nonspecific T wave abnormality now evident in Diagnosis Line: Anterior leads Diagnosis Line: Confirmed by GELA MASSEY MD ([id number]) on Diagnosis Line: 03/20/2017 10:08:28 AM INTERPRETING MD: JESÚS
--- NOTE | ~2017-03-19 | HP ---
Unit #: [id number] #: [id number] Patient: SONIA CHRISTIANSON [id number] [address] [place], [place] [address] [id number] I MR#: [id number] NAME: SONIA CHRISTIANSON ROOM: [facility] Age: 56 Sex: F Admission Date: 03/19/2017 : 1960 Attending Physician: Tracy Quiroz M.D. Primary Care Physician: Mil Dial M.D. HISTORY AND PHYSICAL HISTORY OF PRESENT ILLNESS A 56-year-old white female, history of tobacco use, COPD, chronic kidney disease, type 2 diabetes mellitus, hypertension, chronic systolic CHF - ejection fraction of 30-35%, status post defibrillator for history of ventricular tachycardia, history of Clostridium difficile colitis about two months ago, presents to the emergency room with sudden onset of nausea and vomiting, diarrhea, abdominal pain, near syncope, was hypotensive with an initial blood pressure of 65/37, tachycardic, found to have lactic acidosis consistent with sepsis, pH 7.27, pCO2 of 47, PaO2 on 62 on 2 liters, is being admitted for further evaluation and therapy. The patient has no other complaints on review of systems. ALLERGIES Penicillin, sulfa drugs and codeine MEDICATIONS Prior to admission, are unknown. Although they apparent include 1. Celexa 2. Lisinopril 3. Prilosec 4. Toprol 5. Insulin PAST SURGICAL HISTORY Cholecystectomy, tubal ligation, right knee surgery, cone biopsy, hysterectomy, defibrillator. PAST MEDICAL HISTORY COPD, kidney stones, peptic ulcer disease, panic attacks, depression, ventricular tachycardia, chronic systolic congestive heart failure, hypertension, type 2 diabetes mellitus. SOCIAL HISTORY , three children, smokes one-half pack of cigarettes daily, occasional alcohol use. No street drug use. FAMILY HISTORY Noncontributory. PHYSICAL EXAMINATION GENERAL APPEARANCE: She is awake, alert, oriented x3, in no acute distress, other than some abdominal pain. VITAL SIGNS: Initial temperature was 97.8, pulse of 107, respirations 16, blood pressure 65/37, although it went back up to 115/72, it dropped again Unit #: [id number] #: [id number] Patient: SONIA CHRISTIANSON down into the 60s. O2 saturations have been sort of all over the past, 99% on admission, then 91%, currently 95% on 2 liters. HEENT: Unremarkable, except for nasal cannula in place. NECK: Supple without JVD, bruits, adenopathy, or thyromegaly. CHEST: Clear to auscultation with diffusely decreased breath sounds. HEART: Regular rate and rhythm without any murmurs, rubs, or gallops. ABDOMEN: Soft, nondistended, diffusely tender without any voluntary guarding or rebound tenderness. Positive bowel sounds. No hepatosplenomegaly. EXTREMITIES: No clubbing, cyanosis, or edema. GENITOURINARY: Deferred. RECTAL: Deferred. NEUROLOGIC: Grossly intact. DIAGNOSTIC STUDIES LABORATORY: Again, on 2 liters a pH of 7.27, pCO2 was 47, PaO2 was 62. BMP is normal except for a CO2 of 21, CBC shows a white count of 9.0, hemoglobin of 10.4, platelet count of 171,000, lactic acid was 2.7. Cardiac enzymes normal. CARDIOLOGY: Sinus tachycardia at 102, left axis deviation. IMPRESSION 1. Nausea, vomiting, diarrhea, abdominal pain. 2. Septic shock. 3. Lactic acidosis. 4. History of Clostridium difficile colitis. 5. Chronic systolic congestive heart failure. 6. History of ventricular tachycardia status post defibrillator. 7. Chronic obstructive pulmonary disease. 8. Tobacco use. 9. Type 2 diabetes mellitus. 10. Hypertension. 11. Major depressive disorder. PLAN IV Flagyl, IV fluids, pressor support, ICU admission, mill platform supervisor consult, infectious disease consult, stat CT of the abdomen and pelvis to rule out megacolon. Pepcid for gastrointestinal prophylaxis. Sequential compression devices for deep venous thrombosis prophylaxis. Hold home medications except for inhalers. Further evaluation pending results of stool for Clostridium difficile, CT scan and further evaluation. Dictated by Sal Montenegro/ira TD: 03/20/2017 14:48 JOB #: [id number] Unit #: [id number] #: [id number] Patient: SONIA CHRISTIANSON HISTORY AND PHYSICAL Page 1 of 1 X Fredrick Kerr MD HISTORY AND PHYSICAL
--- NOTE | ~2017-03-19 | CO ---
Unit #: [id number] #: [id number] Patient: SONIA CHRISTIANSON [id number] [address] [address] [id number] I MR#: [id number] NAME: SONIA CHRISTIANSON ROOM: [facility] Age: 56 Sex: F Admission Date: 03/19/2017 : 1960 Attending Physician: Tracy Quiroz M.D. Primary Care Physician: Mil Dial M.D. Consultation Date: 03/20/2017 CONSULTATION REPORT REASON FOR CONSULT ICU management. CHIEF COMPLAINT Abdominal pain and diarrhea. HISTORY OF PRESENT ILLNESS This is a 56-year-old female who is well known to our service from previous admission with history of COPD, chronic kidney disease, type 2 diabetes, hypertension, systolic congestive heart failure and recurrent C. diff. colitis. She presented to the emergency room with nausea, vomiting, diarrhea and abdominal pain. The patient also felt lightheaded and almost passed out. The patient was hypotensive on presentation with a blood pressure of 65/37. Her lactic acid was high. The patient responded nicely to IV fluid, and she did not need any IV pressors. PAST MEDICAL HISTORY 1. Nonischemic cardiomyopathy with ejection fraction of 35%. 2. Status post cardiac arrest. 3. Hypertension. 4. Hyperlipidemia. 5. Diabetes. 6. COPD. 7. Tobacco abuse. PAST SURGICAL HISTORY 1. AICD placement. 2. Cholecystectomy. 3. Tubal ligation. 4. Right knee surgery. 5. Hysterectomy. SOCIAL HISTORY The patient is an active smoker. No history of alcohol or drug abuse. She has a history of polysubstance abuse in the past. FAMILY HISTORY Unremarkable. ALLERGIES Penicillin, sulfa, Amaryl, codeine. REVIEW OF SYSTEMS Twelve-point review of systems was obtained and was negative except for Unit #: [id number] #: [id number] Patient: SONIA CHRISTIANSON abdominal pain, nausea, vomiting and diarrhea. Also, the patient had minimal cough but no sputum production. She denied any dysuria. PHYSICAL EXAMINATION GENERAL: The patient is not in acute distress at this point. HEENT: Atraumatic, normocephalic. PERRLA, EOMI. NECK: Supple. No JVD. No lymphadenopathy. CHEST: Decreased breath sounds bilaterally with minimal rhonchi. HEART: S1, S2. No murmur, gallops or rubs. ABDOMEN: Soft, nontender. Bowel sounds positive. No hepatosplenomegaly. EXTREMITIES: No edema or cyanosis. SKIN: No rashes. CLAIMS ADJUDICATOR: Awake, alert, oriented x3. No focal motor/sensory deficits. LABS AND OTHER TESTS LABS: Creatinine 1.2, chloride 106, bicarb 21. White blood count 10.5, hemoglobin 10.8. ASSESSMENT 1. Severe sepsis. 2. C. diff. colitis. 3. Rule out UTI. 4. COPD. 5. Nonischemic cardiomyopathy with ejection fraction of 35%. 6. Diabetes. 7. Morbid obesity. 8. History of polysubstance abuse. PLAN 1. The patient is status post IV hydration per sepsis guidelines. At this point we need to be very cautious with her IV hydration given her ejection fraction. 2. Antibiotics per ID to cover for C. diff. colitis +/- UTI. 3. Out of bed to chair and ambulation. 4. Bronchodilator. 5. Restart her home meds. 6. DVT prophylaxis. Dictated by... Tawnya Sandoval M.D. EA/fidelina TD: 03/21/2017 08:00 JOB #: [id number] Unit #: [id number] #: [id number] Patient: SONIA CHRISTIANSON CONSULTATION REPORT Page 1 of 1 X TAWNYA FISHER MD X CONSULTATION REPORT
[~2017-03-19 18:56] MED LIST changes: +(NONE)1 CA1 PO; +DIGESTIVE PROB250 MG PO; +DOXYCYCLINE PO; +FLAGYL250 M1 PO; +ISOSORBIDE DINIT5 MG PO
[2017-03-19 19:50] LABS: BASOPHIL% 0.2 % (0-2.5); EOSINOPHIL# 0.2 X10e3 (0-0.7); EOSINOPHIL% 1.4 % (0.0-7.0); HEMATOCRIT 43.6 % (35.0-45.0); HEMOGLOBIN 14.2 gm/dL (12.0-16.0); LYMPHOCYTE# 0.6 X10e3 (1.0-3.5); LYMPHOCYTE% 5.7 % (17.0-45.0); MEAN CELL VOLUME 87.2 FL (83-96); MEAN CORPUSCULAR HEMOGLOBIN 28.4 PG (28-34); MEAN CORPUSCULAR HGB CONC 32.6 g/dL (30-36); MEAN PLATELET VOLUME 8.3 FL (6.5-11.5); MONOCYTE# 0.4 X10e3 (0-1.0); MONOCYTE% 3.9 % (3.0-12.0); NEUTROPHIL# 9.3 X10e3 (1.5-7.1); NEUTROPHIL% 88.8 % (40-75); PLATELET COUNT 231 X10e3 (140-420); RED CELL DISTRIBUTION WIDTH 16.4 % (11.0-15.5); WHITE BLOOD COUNT 10.5 X10e3 (4.0-10.5)
[2017-03-19 19:55] LABS: DIFF IND NO
[2017-03-19 20:01] LABS: POC - CKMB 1.3 ng/mL (0.0-7.9); POC - TROPONIN <0.05 ng/mL (<=0.05)
[2017-03-19 20:09] LABS: ALBUMIN SERUM 4.6 g/dL (3.5-5.0); BILIRUBIN, DIRECT 0.1 mg/dL (0.0-0.2); BILIRUBIN,INDIRECT 0.4 mg/dL (0.0-0.9); BILIRUBIN,TOTAL 0.5 mg/dL (0.2-2.0); BUN/CREATININE RATIO 15.83; CALCIUM SERUM 9.5 mg/dL (8.4-10.2); CREATININE SERUM 1.2 mg/dL (0.6-1.4); GLOM FILT RATE Estimated 50.8 mL/min (>60); POTASSIUM 4.2 mmol/L (3.5-5.1); PROTEIN TOTAL SERUM 8.4 g/dL (6.0-8.3)
[2017-03-20 07:17] LABS: BASOPHIL% 0.3 % (0-2.5); EOSINOPHIL# 0.3 X10e3 (0-0.7); EOSINOPHIL% 3.6 % (0.0-7.0); HEMATOCRIT 33.1 % (35.0-45.0); LYMPHOCYTE# 1.4 X10e3 (1.0-3.5); LYMPHOCYTE% 15.2 % (17.0-45.0); MEAN CELL VOLUME 87.7 FL (83-96); MEAN CORPUSCULAR HEMOGLOBIN 28.6 PG (28-34); MEAN CORPUSCULAR HGB CONC 32.6 g/dL (30-36); MEAN PLATELET VOLUME 7.9 FL (6.5-11.5); MONOCYTE# 0.6 X10e3 (0-1.0); MONOCYTE% 6.8 % (3.0-12.0); NEUTROPHIL# 6.7 X10e3 (1.5-7.1); NEUTROPHIL% 74.1 % (40-75); PLATELET COUNT 171 X10e3 (140-420); RED BLOOD COUNT 3.78 X10e (3.90-5.30); RED CELL DISTRIBUTION WIDTH 16.4 % (11.0-15.5)
[2017-03-20 07:18] LABS: HEMOGLOBIN 10.8 gm/dL (12.0-16.0)
[2017-03-20 07:29] LABS: DIFF IND NO
[2017-03-20 07:41] LABS: CALCIUM SERUM 8.1 mg/dL (8.4-10.2); GLOM FILT RATE Estimated 63.4 mL/min (>60); POTASSIUM 4.5 mmol/L (3.5-5.1)
[2017-03-20 08:22] LABS: ARTERIAL BLD GAS O2 SATURATION 89.6 % (90.0-100.0); ARTERIAL BLOOD GAS CARBOXY HB 1.7 %sat (0.0-9.0); ARTERIAL BLOOD GAS HCO3 21.9 mmol/L; ARTERIAL BLOOD GAS MET HB 0.9 %sat (0.0-2.0); ARTERIAL BLOOD GAS PCO2 47.8 mmHg (35.0-45.0)
[2017-03-20 08:23] LABS: ARTERIAL BLOOD GAS ART SITE LEFT RADIAL; ARTERIAL BLOOD GAS DELIVERY NASAL CANNULA; ARTERIAL BLOOD GAS PO2 62.4 mmHg (80.0-100); ARTERIAL DRAW? YES
[2017-03-20 10:07] LABS: URINE SOURCE CLEAN CATCH
[2017-03-20 10:14] LABS: URINE APPEARANCE CLOUDY; URINE BILIRUBIN NEG (NEG); URINE BLOOD 3+ (NEG); URINE COLOR YELLOW; URINE GLUCOSE NEG (NEG); URINE KETONE NEG (NEG); URINE LEUKOCYTE ESTERASE 3+ (NEG); URINE NITRATE NEG (NEG); URINE PROTEIN NEG (NEG); URINE SPECIFIC GRAVITY 1.018 (1.003-1.035); URINE UROBILINOGEN 0.2 MG/DL (NEG)
[2017-03-20 10:16] LABS: URBCS1 AUWI 25-50 /[HPF] (0-2); URINE BACTERIA AUWI 3+ (NEGATIVE); URINE SQUAMOUS EPITHELIAL CELL OCC /[HPF]
[2017-03-20 10:31] LABS: CULTURE INDICATED? YES; URINE MUCUS PRESENT; URINE YEAST PRESENT
[2017-03-20] MEDS ORDERED: ZESTRIL40 MG PO (12:00)
[2017-03-20] MEDS ORDERED: PRILOSEC10 M1 PO (12:01)
[2017-03-20] MEDS ORDERED: TOPROL XL50 MG PO (12:01)
[2017-03-20] MEDS ORDERED: KLOR-CON SPRIN10 MEQ PO (12:02)
[2017-03-20] MEDS ORDERED: CELEXA20 M1 PO (12:02)
[2017-03-20] MEDS ORDERED: NEURONTIN800 MG PO (12:04)
[2017-03-20] MEDS ORDERED: LORTAB 7.5-3251 EACH PO (12:05)
[2017-03-20] MEDS ORDERED: LASIX PO (12:06)
[2017-03-20] MEDS ORDERED: KLONOPIN0.5 MG PO (12:06)
[2017-03-20] MEDS ORDERED: BREO ELLIPTA I1 EACH INH (12:07)
[2017-03-20] MEDS ORDERED: SEROQUEL100 MG PO (12:31)
[2017-03-21 05:23] LABS: BASOPHIL% 0.3 % (0-2.5); EOSINOPHIL# 0.3 X10e3 (0-0.7); EOSINOPHIL% 5.4 % (0.0-7.0); HEMATOCRIT 31.7 % (35.0-45.0); HEMOGLOBIN 10.4 gm/dL (12.0-16.0); LYMPHOCYTE# 1.2 X10e3 (1.0-3.5); LYMPHOCYTE% 22.2 % (17.0-45.0); MEAN CELL VOLUME 86.7 FL (83-96); MEAN CORPUSCULAR HEMOGLOBIN 28.5 PG (28-34); MEAN CORPUSCULAR HGB CONC 32.9 g/dL (30-36); MEAN PLATELET VOLUME 7.9 FL (6.5-11.5); MONOCYTE# 0.3 X10e3 (0-1.0); MONOCYTE% 6.6 % (3.0-12.0); NEUTROPHIL# 3.4 X10e3 (1.5-7.1); NEUTROPHIL% 65.5 % (40-75); PLATELET COUNT 150 X10e3 (140-420); RED BLOOD COUNT 3.66 X10e (3.90-5.30); RED CELL DISTRIBUTION WIDTH 16.1 % (11.0-15.5); WHITE BLOOD COUNT 5.2 X10e3 (4.0-10.5)
[2017-03-21 05:39] LABS: DIFF IND NO
[2017-03-21 06:23] LABS: BUN/CREATININE RATIO 11.11; CALCIUM SERUM 8.3 mg/dL (8.4-10.2); CREATININE SERUM 0.9 mg/dL (0.6-1.4); POTASSIUM 3.8 mmol/L (3.5-5.1)
[2017-03-21] MEDS ORDERED: ALBUTEROL17 GM (11:42)
[2017-03-21] MEDS ORDERED: BASAGLAR K100 UNIT/1 SUBQ (11:42)
[2017-03-21] MEDS ORDERED: LIPITOR20 MG PO (11:43)
[2017-03-21] MEDS ORDERED: ZYRTEC10 M1 PO (11:44)
[2017-03-21] MEDS ORDERED: CAPOZIDE PO (11:44)
[2017-03-21] MEDS ORDERED: AMLODIPINE BESY10 MG PO (11:44)
== END 2017-03-21 23:30 | disposition left against medical advice (07) | DRG 871 ==
LOC: CED 18:56 → CEDOF 20:40 → C3A PCU 20:40 → CED 20:58 → CEDOF 20:58 → CICCU2 03-20 11:43 → CEDOF 03-20 11:43 → C3A PCU 03-21 15:00
PROVIDERS: Emergency Medicine; Internal Medicine
DX: A41.9 Sepsis, unspecified organism (principal); R65.21 Severe sepsis with septic shock; A04.7 Enterocolitis due to Clostridium difficile; I13.0 Hypertensive heart and chronic kidney disease with heart failure and stage 1 through stage 4 chronic kidney disease, or unspecified chronic kidney disease; I50.22 Chronic systolic (congestive) heart failure; I42.8 Other cardiomyopathies; N39.0 Urinary tract infection, site not specified; F17.210 Nicotine dependence, cigarettes, uncomplicated; J44.9 Chronic obstructive pulmonary disease, unspecified; N18.9 Chronic kidney disease, unspecified; E11.9 Type 2 diabetes mellitus without complications; Z88.0 Allergy status to penicillin; Z88.5 Allergy status to narcotic agent; Z88.2 Allergy status to sulfonamides; Z90.49 Acquired absence of other specified parts of digestive tract; Z90.710 Acquired absence of both cervix and uterus; Z95.810 Presence of automatic (implantable) cardiac defibrillator; F32.9 Major depressive disorder, single episode, unspecified; E86.0 Dehydration; E66.9 Obesity, unspecified; B96.89 Other specified bacterial agents as the cause of diseases classified elsewhere
CPT/HCPCS: 36415; 36600; 71010; 74176; 80048; 80076; 81003; 82308; 82533; 82553; 82803; 82947; 83605; 83630; 84484; 85025; 87040; 87086; 87088; 87186; 87493; 93005; 94640; 94760; 94761; 96365; 96372; 99285; J0500; J0696; J2405; J2550

== ENCOUNTER 2017-05-15 11:51 | Inpatient (IN) | payer OTHER ==
[~2017-05-15] VITALS: Ht 165.1 cm; Wt 91.0 kg
--- NOTE | ~2017-05-15 | CT4 ---
[facility] A Service of [facility] RADIOLOGY TEXT RESULTS PATIENT: SONIA CHRISTIANSON LOCATION: C5 552-01 : 62 UNIT #: [id number] AGE: [address]: Kate Escobar MD SEX: F ORDER DR: [id number] [facility] [address] [facility]. [place], [place] [address] [id number] MR#: [id number] Acc #: [id number] NAME: SONIA CHRISTIANSON : 1960 SEX: F STUDY DATE/TIME: 05/15/2017 15:43 UNIT: CEDOF ROOM: 80856 STUDY DESCRIPTION: CT Abd and Pelv Wo Cont Attending Physician: Kate Escobar M.D. Ordering Physician: Kate Escobar M.D. Primary Care Physician: Mil Dial M.D. MEDICAL IMAGING REPORT This report is preliminary unless electronic signature is present EXAM Abdomen and pelvis CT no contrast 05/15/2017 INDICATIONS 56-year-old female with abdominal pain in the upper abdomen 4-5 days acute renal failure, nausea, vomiting, diarrhea. History of cholecystectomy and hysterectomy. TECHNIQUE Noncontrast abdomen and pelvis CT performed. This CT exam was performed with one or more of the following radiation dose reduction techniques: automatic exposure control, adjustment of mA and/or kV according to patient size, and iterative reconstruction. COMPARISON 03/20/[address] abdomen Exam markedly degraded by noncontrast technique. Atelectatic changes are present in the lungs. No effusion. Aorta demonstrates no aneurysm. Spleen, adrenal glands and pancreas are unremarkable. Gallbladder surgically absent. Fatty infiltration of the liver. Tiny nonobstructing left renal stone. No hydronephrosis of either kidney. CT pelvis Bladder unremarkable. Uterus surgically absent. No drainable fluid collection in the pelvis. Bowel demonstrates mild fluid distension of the colon. Appendix normal. No bowel obstruction. No suspicious bone lesion. [facility] A Service of [facility] RADIOLOGY TEXT RESULTS PATIENT: SONIA CHRISTIANSON LOCATION: [facility] 5510-13 : 62 UNIT #: [id number] AGE: [address]: Kate Escobar MD SEX: F ORDER DR: IMPRESSION 1. Nonobstructing stone in the left kidney. 2. Fatty infiltration of the liver. 3. The appendix is normal. 4. Fluid distension of the colon most characteristic of diarrhea. Dictated by... Hernesto Sanders M.D. THIS IS AN ELECTRONICALLY VERIFIED REPORT Hernesto Sanders M.D. at 05/15/2017 11:18 PM ASHLEE/ira TD: 05/15/2017 18:43 JOB #: [id number] MEDICAL IMAGING REPORT Page 1 of 1 COPY
--- NOTE | ~2017-05-15 | CO ---
Unit #: [id number] #: [id number] Patient: SONIA SWAIN [id number] [address] [place], [place] [address] [id number] I MR#: [id number] NAME: SONIA SWAIN ROOM: 55 Age: 56 Sex: F Admission Date: 05/15/2017 : 1960 Attending Physician: Tracy Quiroz M.D. Primary Care Physician: Mil Dial M.D. CONSULTATION REPORT REASON FOR CONSULTATION Increased creatinine. HISTORY OF PRESENT ILLNESS Ms. Swain is a 56-year-old female, who presents with complaints of nausea, vomiting, dry mouth, and dizziness, and is noted in the emergency department to have a serum creatinine of 7.2. Creatinine was 0.9 on 03/21/2017. She denies recent knowledge of kidney disease, though she said she has had distant past episode of acute kidney injury in association with suicide attempt using ethylene glycol(has had it for years). She says she has chronic diarrhea and has had for years, it is unchanged, there was no recent blood. The vomiting though is new and the dizziness and dry mouth worse than usual. She does use nonsteroidals and has been doing so on a more regular basis. Of late, (she is counseled to stop and avoid in the future, this visit). She denies dysuria or gross hematuria. She has not really noticed any change in urine volume. She takes diuretics regularly at home for ankle swelling. She says the left leg has been swelling ever since the fracture years ago, the other leg does not have much in the way of swelling and both have been less in recent days. PAST MEDICAL HISTORY Notable for hypertension, diabetes, history of chronic systolic congestive heart failure, prior history of ventricular tachycardia, peptic disease, COPD, and renal stones. SOCIAL HISTORY She is an active smoker. FAMILY HISTORY Denies end-stage renal disease. SYSTEM REVIEW No active bleeding. No angina. No palpitations. Less than usual lower-extremity swelling. No rigors, chills, sweats, productive sputum. Stable breathing with occasional wheezing. Otherwise, complete system review is negative or noncontributory. PHYSICAL EXAMINATION GENERAL: Reveals awake and alert, but chronically ill-appearing female. VITAL SIGNS: Blood pressure was 93/61, heart rate 107, respirations 20. HEENT: Conjunctivae were pink. There was no bloody nasal discharge. Oral mucous membranes were dry. NECK: Jugular venous pressure was flat. There was no thyromegaly. No Unit #: [id number] #: [id number] Patient: SONIA SWAIN cervical or supraclavicular adenopathy were notable. SKIN: Warm and dry. LUNGS: Revealed bilateral moderate wheezing with moderate air movement. HEART: Revealed no rub or S3. ABDOMEN: Soft, nontender, with normal sounds. : Included no CVA tenderness or bladder distention. EXTREMITIES: Revealed only trace edema on the side with prior fracture. DIAGNOSTIC STUDIES LABORATORY RESULTS: [place] count [place] [address], hemoglobin 14.3, platelet count 196,000. BUN was 62 with creatinine 7.2, potassium was low at 3 and has been treated, calcium was 8.2, magnesium is pending. ASSESSMENT 1. Acute renal failure. Secondary to volume depletion. Also contributory is decreased renal compensation related to ongoing nonsteroidal use. Discontinuation of avoidance of that medicine in the future was emphasized. For now, we will need volume resuscitation. Consideration of inflammation and obstruction will be reviewed and differential expanded should she not respond as expected to initial maneuvers. 2. Hypokalemia. Replacing. We will request magnesium. 3. Volume depletion. Contributing to hypotension and she will be treated with normal saline with serial re-evaluation given the reported past history of congestive failure. For now certainly no evidence of decompensation. Thanks for letting me to see Ms. Swain. Dictated by... Del Madden M.D. REL/modl TD: 05/17/2017 16:07 JOB #: [id number] CONSULTATION REPORT Page 1 of 1 X Del Madden MD X CONSULTATION REPORT
--- NOTE | ~2017-05-15 | EKG ---
PATIENT: SONIA CHRISTIANSON UNIT #: [id number] Ventricular Rate: 110 BPM Atrial Rate: 110 BPM P-R Interval: 134 ms QRS Duration: 84 ms Q-T Interval: 376 ms QTC Calculation(Bezet): 508 ms P Pope: 79 degrees Calculated R Pope: -75 degrees Calculated T Pope: 59 degrees Diagnosis Line: Sinus tachycardia Diagnosis Line: Left axis deviation Diagnosis Line: Cannot rule out Inferior infarct (cited on or Diagnosis Line: before 15-MAY-2017) Diagnosis Line: Abnormal ECG Diagnosis Line: When compared with ECG of 19-MAR-2017 20:01, Diagnosis Line: QT has lengthened Diagnosis Line: Confirmed by JOAQUIN ESTEVEZ MD ([id number]) on 05/16/2017 Diagnosis Line: 2:02:40 PM INTERPRETING MD: ZENAIDA BECKMAN
--- NOTE | ~2017-05-15 | CO ---
Unit #: [id number] #: [id number] Patient: SONIA CHRISTIANSON [id number] [address] [address] [id number] I MR#: [id number] NAME: SONIA CHRISTIANSON ROOM: 55 Age: 56 Sex: F Admission Date: 05/15/2017 : 1960 Attending Physician: Tracy Quiroz M.D. Primary Care Physician: Mil Dial M.D. Consultation Date: 05/19/2017 CONSULTATION REPORT REASON FOR CONSULT COPD management. HISTORY OF PRESENT ILLNESS This is a 56-year-old female with past medical history significant for COPD, chronic kidney disease, diabetes type 2, hypertension, systolic congestive heart failure, who presented to the emergency room with nausea, vomiting and diarrhea. Workup was consistent with C. diff colitis. However, her course was complicated later on with progressive shortness of breath and diffuse wheezing. Patient denied any fever, chills or night sweats. Patient is able to get up and ambulate. PAST MEDICAL HISTORY 1. Nonischemic cardiomyopathy with ejection fraction of 35%. 2. Status post cardiac arrest. 3. Hypertension. 4. Hyperlipidemia. 5. Diabetes. 6. COPD. 7. Tobacco abuse. PAST SURGICAL HISTORY 1. AICD placement. 2. Cholecystectomy. 3. Tubal ligation. 4. Right knee surgery. 5. Hysterectomy. SOCIAL HISTORY The patient is an active smoker. No history of alcohol or drug abuse. She has history of polysubstance abuse in the past. FAMILY HISTORY Unremarkable. ALLERGIES 1. Penicillin. 2. Sulfa. 3. Amaryl. 4. Codeine. REVIEW OF SYSTEMS 12-point review of system were obtained and were negative except for what was mentioned in the HPI. Unit #: [id number] #: [id number] Patient: SONIA CHRISTIANSON PHYSICAL EXAM GENERAL: The patient is in no acute distress. HEENT: Atraumatic, normocephalic. PERRLA, EOMI. NECK: Supple. No JVD, no lymphadenopathy. CHEST: Diffuse wheezing. HEART: S1, S2. No murmur, gallops or rubs. ABDOMEN: Soft, nontender. Bowel sound is positive. No hepatosplenomegaly. EXTREMITIES: No edema or cyanosis. SKIN: No rashes. 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 No focal motor/sensory deficits. LABS AND OTHER TESTS LABORATORY: Creatinine is 0.9, sodium 139, white blood count 7.6, hemoglobin 12.7. IMAGING TESTS: CT abdomen showed nonobstructing stone in the left kidney and fluid collection in the colon most characteristic of diarrhea. ASSESSMENT 1. Acute exacerbation of COPD. 2. C. diff colitis. 3. Diabetes. 4. Hypertension. 5. Smoking. 6. Anxiety. 7. Depression. 8. Diabetes. PLAN 1. Continue patient on IV steroid and bronchodilator but we will taper steroid quickly due to history of recurrent C. diff and to avoid any progression of her colitis. 2. Antibiotics per infectious disease service. 3. Nicotine patches. 4. Patient was counseled more than 5 minutes regarding smoking cessation. 5. Probiotics. 6. DVT prophylaxis. I would like to thank Dr. Cordova for allowing me to be part of this patient care. Dictated by... Sal Alejandro TD: 05/20/2017 09:21 JOB #: [id number] Unit #: [id number] #: [id number] Patient: SONIA CHRISTIANSON CONSULTATION REPORT Page 1 of 1 X TAWNYA FISHER MD CONSULTATION REPORT
--- NOTE | ~2017-05-15 | DS ---
Unit #: [id number] #: [id number] Patient: SONIA CHRISTIANSON [id number] [address] [address] [id number] I MR#: [id number] NAME: SONIA CHRISTIANSON ROOM: 55 Age: 56 Sex: F Admission Date: 05/15/2017 : 1960 Discharge Date: 05/19/2017 Attending Physician: Tracy Quiroz M.D. Primary Care Physician: Mil Dial M.D. DISCHARGE SUMMARY DISCHARGE DIAGNOSES 1. Clostridium difficile colitis. 2. Status post acute respiratory failure. 3. History of congestive heart failure. 4. Chronic obstructive pulmonary disease. 5. Anemia of chronic disease. DISCHARGE MEDICATIONS 1. Ventolin 2 puff q.6 hour p.r.n. 2. Celexa 20 mg daily. 3. Zyrtec 10 mg daily. 4. Seroquel 100 mg daily. 5. Transdermal nicotine patch 21 mg daily. 6. Klonopin 0.5 mg t.i.d. p.r.n. 7. Toprol-XL 50 mg daily. 8. Breo Ellipta inhaler daily. 9. Discontinue hydrochlorothiazide 25 mg daily. 10. Lipitor 20 mg daily. 11. Zestril 20 mg p.o. daily. 12. Insulin glargine 10 units subcu q.h.s. 13. Percocet 5/325 one tablet q.6-8 hours p.r.n. for pain. 14. Omeprazole 20 mg daily. 15. Klor-Con 20 mEq daily. DISPOSITION Going home. FOLLOWUP Follow up with the primary care physician 2 to 3 days. CONSULTANTS ON THIS HOSPITAL STAY 1. Dr. Sandoval, nephrology. 2. Dr. Davis, infectious disease. LABS AND DIAGNOSTICS AND PROCEDURES ON THIS HOSPITAL STAY 1. CT abdomen and pelvis without the contrast unremarkable except of fluid distention of the colon most characteristic of diarrhea. Nonobstructing stone in the left kidney and fatty infiltration of the liver. 2. Stool positive for C. diff. 3. Urine culture negative. HISTORY OF PRESENT HOSPITAL STAY Please refer to H and P done by my colleague for initial presentation on Unit #: [id number] #: [id number] Patient: SONIA CHRISTIANSON this female. ACTIVE PROBLEMS AND DIAGNOSES C. diff colitis, was treated with the IV Flagyl initially, status post evaluation per ID now on p.o. vanc, stable for the discharge per ID, continue p.o. vanc for 10 days. Status post acute respiratory failure, was treated with the bronchodilator, stable. History of CHF, stable. Status post acute kidney injury, was secondary to volume depletion. Discharge day BUN and creatinine 8 and 0.8. Anemia of chronic disease, stable. Discharge date H and H 11.5 and 33.3. Hypertension, discharge med rec as above, holding some of the medications like Lasix and hydrochlorothiazide and decreased Zestril. This could be further addressed by primary care physician, Dr. Mil Dial. DISPOSITION Again, discharging home. FOLLOWUP Follow up with Dr. Dial two to three days. Dictated by... Rodriguez Cordova M.D. OC/cf TD: 05/19/2017 17:02 JOB #: [id number] DISCHARGE SUMMARY Page 1 of 1 X Rodriguez Cordova MD X DISCHARGE SUMMARY
--- NOTE | ~2017-05-15 | HP ---
Unit #: [id number] #: [id number] Patient: SONIA CHRISTIANSON [id number] [address] [address] [id number] I MR#: [id number] NAME: SONIA CHRISTIANSON ROOM: 55 Age: 56 Sex: F Admission Date: 05/15/2017 : 1960 Attending Physician: Tracy Quiroz M.D. Primary Care Physician: Mil Dial M.D. HISTORY AND PHYSICAL CHIEF COMPLAINT Nausea, vomiting and diarrhea. HISTORY OF PRESENTING ILLNESS Miss Busch is a [id number] female who is very well known to me from multiple admissions. The patient's last admission was in March 2017 when she was admitted by Dr. Kerr for hypotension. Patient came to ER this time complaining of diarrhea, nausea and vomiting. This all started two days ago which was gradually getting worse. Patient was having dizzy spell and she fell down, hit her legs. Patient has had multiple falls, according to her, in the last few days. She could not hold anything in. Came to ER for further evaluation and is being admitted for acute renal failure and nausea, vomiting and diarrhea. Patient has had loss of appetite. Patient was diagnosed with C. diff in March 2017. From what I understand she completed the course. PAST MEDICAL HISTORY Past medical history is: 1. History of nonischemic cardiomyopathy with ejection fraction of 30% to 35%. 2. History of cardiac arrest in 2014. 3. Hypertension. 4. Hyperlipidemia. 5. Chronic kidney disease. 6. Diabetes mellitus type 2. 7. No history of anxiety and depression. 8. Tobacco abuse. PAST SURGICAL HISTORY History of: 1. Cholecystectomy. 2. Right knee surgery. 3. Colon biopsy. 4. Hysterectomy. 5. AICD placement. ALLERGIES Patient is allergic to codeine, penicillin and sulfonamide. FAMILY HISTORY Family history is not significant. SOCIAL HISTORY Unit #: [id number] #: [id number] Patient: SONIA CHRISTIANSON Patient is a smoker, continued to smoke, no history of alcohol abuse, no history of IV drug abuse but she does have a history of polysubstance abuse in the past. HOME MEDICATIONS Home medications are as per med rec which has been reviewed at length and started. Please refer to that. REVIEW OF SYMPTOMS No history of chest pain. She does complain of abdominal pain. She does complain of dizziness and presyncope episode. No history of leg swelling. No history of orthopnea or paroxysmal nocturnal dyspnea. Rest is as per history of presenting illness. PHYSICAL EXAMINATION GENERAL APPEARANCE: Patient is lying in bed, does not seem to be in any respiratory distress. VITAL SIGNS: Blood pressure is 87/55. Respiratory rate 20. Pulse is 107. Temperature 97.1. Oxygen saturation is 98%. HEENT: Head is normocephalic. Eye movements are normal. No nystagmus. CHEST: Has fair air entry, decreased at the bases. CVS: S1, S2 positive, regular rhythm. ABDOMEN: Generalized tenderness is present. EXTREMITIES: Negative edema. 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 No focal neurological deficit. DIAGNOSTIC STUDIES LABORATORY: WBC 10.8, hemoglobin 14.3, hematocrit 42.3 and platelet count of 196, sodium 132, potassium 3.0, chloride 98, BUN 62 and creatinine 7.2, uric acid 16.0, CPK 74. IMAGING: Noncontrast abdomen and pelvis CT performed. Nonobstructing stone in the left kidney. Fatty infiltration of the liver. Appendix is normal. Fluid distension of the colon most characteristic of diarrhea. ASSESSMENT Patient is being admitted to telemetry unit with diagnoses of: 1. Intractable vomiting and diarrhea. 2. Abdominal pain secondary to above. 3. Bzzjm-[id number] renal failure. 4. Hypotension. 5. Hypokalemia. 6. History of systolic congestive heart failure. 7. Hyperlipidemia. 8. Chronic obstructive pulmonary disease. PLAN Plan is admit to telemetry unit. Stool for C. diff will be done. IV Flagyl is being started as patient was recently treated for C. diff. Dr. Ward has been consulted. IV fluids as per their recommendation. IV Pepcid 20 mg q. day is being started. Protonix has been discontinued. Accu-Chek q.a.c/h.s. with insulin sliding scale. CT scan has been reviewed. Dr. Ward's consult has been reviewed. Please refer to progress note for further orders. Unit #: [id number] #: [id number] Patient: SONIA CHRISTIANSON Dictated by Sal Reid/edmundo TD: 05/17/2017 17:13 JOB #: [id number] HISTORY AND PHYSICAL Page 1 of 1 X Tracy Quiroz MD X HISTORY AND PHYSICAL
--- NOTE | ~2017-05-15 | DS ---
Unit #: [id number] #: [id number] Patient: SONIA CHRISTIANSON [id number] [address] [place], [place] [address] [id number] I MR#: [id number] NAME: SONIA CHRISTIANSON ROOM: 55 Age: 56 Sex: F Admission Date: 05/15/2017 : 1960 Discharge Date: 05/21/2017 Attending Physician: Tracy Quiroz M.D. Primary Care Physician: Mil Dial M.D. DISCHARGE SUMMARY ADDENDUM The patient's discharge was held because of acute COPD exacerbation. The patient was seen by a grinding wheel operator Dr. Thompson and Dr. Sandoval. The patient received IV Solu-Medrol during hospitalization, but that is being discontinued. She is doing much better at this time and is being discharged home on the same medications. The patient will need to continue vancomycin for C diff colitis. Plan of care has been discussed with the patient at length. Prescription was written by Dr. Cordova. The patient will continue vancomycin for 10 days or so. DISCHARGE PHYSICAL EXAMINATION VITAL SIGNS: Blood pressure is 146/93, respiratory rate 20, pulse is 102, temperature 98.6, oxygen saturation is 94%. HEENT: Head is normocephalic. CHEST: Fair air entry. Very occasional wheezing heard. CVS: S1 and S2 positive. EXTREMITIES: Negative edema. DISCHARGE INSTRUCTIONS The patient will be discharged home to follow up with primary care provider in 1 week. Medication as per med rec. Follow up Dr. Thompson in 2 weeks. Continue vancomycin p.o. for C diff for 10 days. Dictated by... Sal Reid/karlee TD: 05/25/2017 02:48 JOB #: [id number] DISCHARGE SUMMARY Page 1 of 1 X Tracy Quiroz MD X DISCHARGE SUMMARY
[~2017-05-15 11:51] MED LIST changes: +AMLODIPINE BESY10 MG PO; +BASAGLAR K100 UNIT/1 SUBQ; +BREO ELLIPTA I1 EACH INH; +CAPOZIDE PO; +KLONOPIN0.5 MG PO; +KLOR-CON SPRIN10 MEQ PO; +LASIX PO; +LORTAB 7.5-3251 EACH PO; +PRILOSEC10 M1 PO; +SEROQUEL100 MG PO; +TOPROL XL50 MG PO; +ZESTRIL40 MG PO; +ZYRTEC10 M1 PO
[2017-05-15 13:31] LABS: BASOPHIL% 0.4 % (0-2.5); EOSINOPHIL# 0.3 X10e3 (0-0.7); EOSINOPHIL% 2.5 % (0.0-7.0); HEMATOCRIT 42.3 % (35.0-45.0); HEMOGLOBIN 14.3 gm/dL (12.0-16.0); LYMPHOCYTE# 1.7 X10e3 (1.0-3.5); LYMPHOCYTE% 15.4 % (17.0-45.0); MEAN CELL VOLUME 83.1 FL (83-96); MEAN CORPUSCULAR HEMOGLOBIN 28.1 PG (28-34); MEAN CORPUSCULAR HGB CONC 33.8 g/dL (30-36); MONOCYTE# 0.6 X10e3 (0-1.0); MONOCYTE% 5.9 % (3.0-12.0); NEUTROPHIL# 8.2 X10e3 (1.5-7.1); NEUTROPHIL% 75.8 % (40-75); PLATELET COUNT 196 X10e3 (140-420); RED BLOOD COUNT 5.09 X10e (3.90-5.30); RED CELL DISTRIBUTION WIDTH 15.8 % (11.0-15.5); WHITE BLOOD COUNT 10.8 X10e3 (4.0-10.5)
[2017-05-15 13:34] LABS: DIFF IND NO
[2017-05-15 14:06] LABS: ALBUMIN SERUM 4.1 g/dL (3.5-5.0); ALKALINE PHOSPHATASE 100 U/L (32-92); ALT (SGPT) 18 U/L (10-40); AMYLASE 19 U/L (0-46); AST (SGOT) 20 U/L (10-42); BILIRUBIN, DIRECT 0.1 mg/dL (0.0-0.2); BILIRUBIN,TOTAL <0.1 mg/dL (0.2-2.0); BLOOD UREA NITROGEN 62 mg/dL (9-23); BUN/CREATININE RATIO 8.61; CALCIUM SERUM 8.2 mg/dL (8.4-10.2); CARBON DIOXIDE 17 mmol/L (22-31); CHLORIDE 98 mmol/L (100-111); CREATININE SERUM 7.2 mg/dL (0.6-1.4); GLOM FILT RATE Estimated 5.8 mL/min (>60); GLUCOSE FASTING 123 mg/dL (70-110); LIPASE 18 U/L (22-51); PROTEIN TOTAL SERUM 7.7 g/dL (6.0-8.3); SODIUM 132 mmol/L (135-145)
[2017-05-15] MEDS ORDERED: OMEPRAZOLE20 M2 PO (14:38)
[2017-05-15] MEDS ORDERED: HYDROCHLOROTHIA25 MG PO (14:43)
[2017-05-15 20:17] LABS: URINE SOURCE CLEAN CATCH
[2017-05-15 20:26] LABS: URINE APPEARANCE CLOUDY; URINE BILIRUBIN NEG (NEG); URINE BLOOD TRACE (NEG); URINE COLOR YELLOW; URINE GLUCOSE NEG (NEG); URINE KETONE NEG (NEG); URINE LEUKOCYTE ESTERASE NEG (NEG); URINE NITRATE NEG (NEG); URINE PROTEIN 1+ (NEG); URINE SPECIFIC GRAVITY 1.017 (1.003-1.035); URINE UROBILINOGEN 0.2 MG/DL (NEG)
[2017-05-15 20:29] LABS: URINE BACTERIA AUWI NEG (NEGATIVE); URINE SQUAMOUS EPITHELIAL CELL FEW /[HPF]
[2017-05-15 20:36] LABS: CULTURE INDICATED? NO
[2017-05-16 09:15] LABS: CALCIUM SERUM 7.5 mg/dL (8.4-10.2)
[2017-05-16 09:20] LABS: BUN/CREATININE RATIO 13.26; CREATININE SERUM 4.6 mg/dL (0.6-1.4); POTASSIUM 2.9 mmol/L (3.5-5.1)
[2017-05-17 08:06] LABS: HEMATOCRIT 29.6 % (35.0-45.0); MEAN CELL VOLUME 82.7 FL (83-96); MEAN CORPUSCULAR HEMOGLOBIN 28.8 PG (28-34); MEAN CORPUSCULAR HGB CONC 34.8 g/dL (30-36); MEAN PLATELET VOLUME 7.7 FL (6.5-11.5); RED BLOOD COUNT 3.59 X10e (3.90-5.30); RED CELL DISTRIBUTION WIDTH 15.4 % (11.0-15.5)
[2017-05-17 08:35] LABS: WHITE BLOOD COUNT 4.1 X10e3 (4.0-10.5)
[2017-05-17 08:36] LABS: HEMOGLOBIN 10.3 gm/dL (12.0-16.0)
[2017-05-17 08:39] LABS: ALBUMIN SERUM 3.3 g/dL (3.5-5.0); BILIRUBIN,TOTAL 0.4 mg/dL (0.2-2.0); BUN/CREATININE RATIO 24.28; CREATININE SERUM 1.4 mg/dL (0.6-1.4); GLOM FILT RATE Estimated 42.2 mL/min (>60); MAGNESIUM 1.5 mg/dL (1.6-3.0); PHOSPHOROUS 2.4 mg/dL (2.5-4.6); POTASSIUM 3.3 mmol/L (3.5-5.1); PROTEIN TOTAL SERUM 5.8 g/dL (6.0-8.3)
[2017-05-18 05:37] LABS: CALCIUM SERUM 7.9 mg/dL (8.4-10.2); GLOM FILT RATE Estimated 63.4 mL/min (>60); MAGNESIUM 1.6 mg/dL (1.6-3.0); PHOSPHOROUS 3.4 mg/dL (2.5-4.6); POTASSIUM 4.3 mmol/L (3.5-5.1)
[2017-05-19 06:28] LABS: HEMATOCRIT 33.3 % (35.0-45.0); HEMOGLOBIN 11.5 gm/dL (12.0-16.0); MEAN CELL VOLUME 83.5 FL (83-96); MEAN CORPUSCULAR HEMOGLOBIN 28.9 PG (28-34); MEAN CORPUSCULAR HGB CONC 34.6 g/dL (30-36); MEAN PLATELET VOLUME 8.2 FL (6.5-11.5); RED BLOOD COUNT 3.99 X10e (3.90-5.30); RED CELL DISTRIBUTION WIDTH 15.3 % (11.0-15.5)
[2017-05-19 06:45] LABS: WHITE BLOOD COUNT 6.3 X10e3 (4.0-10.5)
[2017-05-19 06:57] LABS: CALCIUM SERUM 8.5 mg/dL (8.4-10.2); CREATININE SERUM 0.8 mg/dL (0.6-1.4); GLOM FILT RATE Estimated 83.1 mL/min (>60); MAGNESIUM 1.2 mg/dL (1.6-3.0); POTASSIUM 4.4 mmol/L (3.5-5.1)
[2017-05-19] MEDS ORDERED: VANCOMYCIN HCL500 MG PO (14:59)
[2017-05-19] MEDS ORDERED: PERCOCET PO (15:00)
[2017-05-19] MEDS ORDERED: NICOTINE PATCH1 EACH TOP (15:01)
[2017-05-20 06:25] LABS: HEMATOCRIT 37.8 % (35.0-45.0); HEMOGLOBIN 12.7 gm/dL (12.0-16.0); MEAN CELL VOLUME 82.8 FL (83-96); MEAN CORPUSCULAR HEMOGLOBIN 27.9 PG (28-34); MEAN CORPUSCULAR HGB CONC 33.6 g/dL (30-36); MEAN PLATELET VOLUME 8.6 FL (6.5-11.5); RED BLOOD COUNT 4.57 X10e (3.90-5.30); RED CELL DISTRIBUTION WIDTH 15.9 % (11.0-15.5); WHITE BLOOD COUNT 7.6 X10e3 (4.0-10.5)
[2017-05-20 06:37] LABS: INR 1.1; PROTHROMBIN TIME (PATIENT) 12.1 SECONDS (10.0-11.7)
[2017-05-20 07:24] LABS: BUN/CREATININE RATIO 12.22; CALCIUM SERUM 8.9 mg/dL (8.4-10.2); CREATININE SERUM 0.9 mg/dL (0.6-1.4); POTASSIUM 4.1 mmol/L (3.5-5.1)
[2017-05-21] MEDS ORDERED: PERCOCET5/325 PO (15:04)
[2017-05-21] MEDS ORDERED: LISINOPRIL PO (15:07)
== END 2017-05-21 15:57 | disposition home or self-care (01) | DRG 371 ==
LOC: CED 11:51 → CEDOF 14:50 → C5B 14:50 → CEDOF 15:32 → CED 15:32 → C5B 20:07 → CEDOF 20:07 → C5B 05-21 15:57
PROVIDERS: Emergency Medicine; Hospitalist; Internal Medicine; Internal Medicine Nephrology; Physician Assistant Medical
PROC: 05H333Z Insertion of Infusion Device into Right Innominate Vein, Percutaneous Approach (ICD-10-PCS; principal; 2017-05-19)
PROC: B54MZZA Ultrasonography of Right Upper Extremity Veins, Guidance (ICD-10-PCS; 2017-05-19)
DX: A04.7 Enterocolitis due to Clostridium difficile (principal); J96.00 Acute respiratory failure, unspecified whether with hypoxia or hypercapnia; N17.9 Acute kidney failure, unspecified; I95.9 Hypotension, unspecified; I11.0 Hypertensive heart disease with heart failure; I42.8 Other cardiomyopathies; I50.22 Chronic systolic (congestive) heart failure; J44.1 Chronic obstructive pulmonary disease with (acute) exacerbation; E83.42 Hypomagnesemia; E87.6 Hypokalemia; Z87.442 Personal history of urinary calculi; Z87.11 Personal history of peptic ulcer disease; D63.8 Anemia in other chronic diseases classified elsewhere; E78.5 Hyperlipidemia, unspecified; E11.9 Type 2 diabetes mellitus without complications; Z90.49 Acquired absence of other specified parts of digestive tract; Z90.710 Acquired absence of both cervix and uterus; Z95.810 Presence of automatic (implantable) cardiac defibrillator; Z88.0 Allergy status to penicillin; Z88.5 Allergy status to narcotic agent; Z88.2 Allergy status to sulfonamides; F17.200 Nicotine dependence, unspecified, uncomplicated; F41.9 Anxiety disorder, unspecified; F32.9 Major depressive disorder, single episode, unspecified; Z84.1 Family history of disorders of kidney and ureter
CPT/HCPCS: 36415; 74176; 80048; 80053; 80076; 81003; 82150; 82550; 82947; 83690; 83735; 84100; 84132; 84300; 84550; 85025; 85027; 85610; 87493; 89190; 93005; 94640; 94664; 94760; 96361; 96374; 96375; 99285; J1650; J1815; J2405; J2920; J3475